=== PATIENT | male | born 1935 | race Caucasian/White ===

== ENCOUNTER 2019-06-21 07:49 | Outpatient (CLI) | payer MEDICARE, BC, SELFPAY ==
--- NOTE | 2019-06-21 08:01 | CT_ITS ---
WS: [id number] CT NECK WITHOUT CONTRAST. HISTORY: RESTAGING EVALUATION/SQUAMOUS CELL CARCINOMA OF SCALP NECK TECHNIQUE: Contiguous 5 mm axial images are performed through the neck without intravenous contrast. Sagittal and coronal reformats are also submitted. All CT scans at [facility] use at leas t one of these dose optimization techniques: automated exposure control; mA and/or kV adjustment per patient size (includes targeted exams where dose is matched to clinical indication); or iterative rec onstruction. CONTRAST: CONTRAST: None, abnormal GFR and creatinine. DLP: 539.71 mGy.cm COMPARISON: 11/29/2018 Nasopharynx, oropharynx, hypopharynx and larynx are unremarkable. No soft tissue masses or abnormal e nhancement. Torus tubarius and fossa of Rosenmuller and parapharyngeal fat are normal. No significant lymphadenopathy is identified. Thyroid gland and salivary glands are normally enhancing with no masses. Previously described 3 mm no dule in the LEFT thyroid gland is not identified today. Moderate spondylitic changes in the cervical spine. C3 anterolisthesis by 4 mm. Advanced degenerative disc disease at T1-T2. No osteoblastic or osteolytic bone disease. Visualized portions of the skull base demonstrate no abnormalities. Orbits and globes are within norm al limits. No soft tissue masses. Moderate atherosclerosis in the intracranial carotid arteries. Visualized paranasal sinuses and mastoid air cells are normal. Emphysematous changes at the lung apices. Increased mediastinal fat. Cardiac silhouette is enlarged. Benign scattered calcifications in the hilum and mediastinum. CT/CT neck wo con [id number] IMPRESSION: 1. No metastatic disease within the neck. 2. No cervical adenopathy. 3. Advanced cervical spondylosis.
--- NOTE | 2019-06-21 08:01 | CT_ITS ---
WS: [id number] CT HEAD NONCONTRAST HISTORY: RESTAGING/SQUAMOUS CELL CARCINOMA OF SCALP and NECK TECHNIQUE: Contiguous axial imaging performed through the brain in 2.5 mm imaging. Bone and soft tiss ue windows. Sagittal and coronal reformats reviewed. All CT scans at [facility] use at le ast one of these dose optimization techniques: automated exposure control; mA and/or kV adjustment pe r patient size (includes targeted exams where dose is matched to clinical indication); or iterative r econstruction. DLP: 898.16 mGy.cm COMPARISON: 11/29/2018 No acute intracranial hemorrhage, midline shift or mass effect. Mild atrophy and mild chronic ischemic disease. No dural mass is or suspicious areas of decreased att enuation. Ventricles: Normal size with no hydrocephalus. No inferior displacement of the cerebellar tonsils. Paranasal sinuses: As visualized are clear. Mastoid air cells: Well pneumatized. Calvarium and scalp: Again noted is a large defect involving the LEFT frontal calvarium with adjacent change in the bone density. This area measures 6.1 x 5.3 cm. The inner table is still intact but irr egular. Similar to the prior study. No extension of soft tissue into the dura. CT/CT head wo con* [id number] IMPRESSION: 1. No intracranial mass or tumor extension through the calvarium. 2. No change in the LEFT frontal calvarium excision and/or osteolysis. No prog ression of the abnormal density involving the LEFT frontal bone.
[2019-06-21 09:06] LABS: Blood Urea Nitrogen 46 mg/dL (8-23)
== END 2019-06-21 07:50 | disposition home or self-care (01) ==
LOC: RAD 07:55
PROVIDERS: Family Provider Family Medicine; PCP Family Medicine; Visit Provider Radiology Radiation Oncology
DX: C44.42 Squamous cell carcinoma of skin of scalp and neck (principal); M47.812 Spondylosis without myelopathy or radiculopathy, cervical region
CPT/HCPCS: 36415; 70450; 70490; 82565; 84520

== ENCOUNTER 2019-06-22 09:58 | Outpatient (CLI) | payer MEDICARE, BC, SELFPAY ==
--- NOTE | 2019-06-23 13:22 | ONCRAD EPV_ITS ---
Radiation Oncology Established Patient Visit Patient: Chu MR#: [id number] : 1935> Age: 83> Sex: Male> Dictated by: Dr. Al Min Date of Service: 06/22/2019 Referring Physician(s) : Dean Sam Diagnosis: C44.42 - Squamous cell carcinoma of skin of scalp and neck, Diagnosed 09/17/2016 (Active) Radiotherapy to Date: Course: C1 Treatment Site: Frontal Scalp Ref. ID: SCALP Energy: 9E Dose/Fx (cGy): 275 #Fx: 20 / 20 Dose Correction (cGy): 0 Total Dose (cGy): 5,500 Start Date: 09/23/2016 End Date: 10/23/2016 Elapsed Days: 30 Course: C1 Treatment Site: LT EAR 55GY Ref. ID: LT EAR Energy: 9E Dose/Fx (cGy): 275 #Fx: 20 / 20 Dose Correction (cGy): 0 Total Dose (cGy): 5,500 Start Date: 09/23/2016 End Date: 10/23/2016 Elapsed Days: 30 Course: C1 Treatment Site: R Face Parotid Lymph Node 5500/20 Ref. ID: RT PAROTID Energy: 9E Dose/Fx (cGy): 275 #Fx: 20 / 20 Dose Correction (cGy): 0 Total Dose (cGy): 5,500 Start Date: 09/23/2016 End Date: 10/23/2016 Elapsed Days: 30 Chief Complaint / History of Present Illness: The patient has a h/o skin SCC involving scalp s/p wide local excision followed by definitive radiotherapy for locoregional recurrence completed in 10/2016. He had a surgery to close the defect on scalp. He comes in for a followup. He underwent a CT of the head and the neck w/o contrast on 06/21/2019. It showed no intracranial mass or tumor extension through the calvarium. There is no evidence of metastatic disease in the neck and no cervical lymphadenopathy. The patient states that the he recently had a biopsy proven squamous cell carcinoma of the scalp with a small lesion and he is scheduled to have surgical resection Mohs surgery next month in July 2019. Current Medications: AmLODIPine Besylate, aspirin Low Dose, cholecalciferol, gemfibrozil, glimepiride, levemir, losartan Potassium, metoprolol Succinate ER, omeprazole Magnesium, predniSONE, tamsulosin HCl, vitamin A. Allergies: No Known Allergies Current Complaints / Review of Systems: Constitutional - Complains of mild fatigue. Denies lack of appetite, fever, night sweats and change in weight. Eyes - Denies blurred vision and double vision. ENMT - Denies dysphagia, ear pain, mouth dryness, stomatitis, altered taste and tinnitus. Neck - Denies neck pain. Integumentary - Denies rash. Cardiovascular - Complains of edema feet. Denies arrhythmias and chest pain. Respiratory - Complains of dyspnea associated with normal activity. Denies cough and wheezing. Gastrointestinal - Denies abdominal pain, constipation, diarrhea, heartburn / dyspepsia, melena / GI bleeding, nausea and vomiting. Genitourinary (M) - Denies dysuria, frequency and urgency. Musculoskeletal - Denies bone pain, joint pain and muscle weakness. Neurologic - Denies dizziness and headaches. Endocrine - Complains of Type 2 diabetes. Denies thyroid disease. Hematologic/Lymphatic - Denies tender or enlarged lymph nodes.. Vital Signs: Performed on 06/22/2019 10:57 AM BMI - 29.21 kg/m2 (high), Height - 69.00 in, Weight - 197.8 lbs, Temperature - 98.1 f, Pulse - 75, Respiration - 24, O2 Sat - 96 %, Pain - 0 and BP - 151/ 81 mm(hg)(high/). Physical Exam: General: Alert and oriented x 3. No acute distress. HEENT: Normocephalic, atraumatic. Small scalp lesion s/p biopsy. Oral cavity is clear without lesions, masses or ulcers. NECK: Supple without supraclavicular or jugular lymphadenopathy. LUNGS: Clear to auscultation bilaterally without rales, rhonchi or wheeze. HEART: Regular rate and rhythm, normal S1 and S2 without murmur, gallop or rub. MUSCULOSKELETAL: No tenderness or percussion pain over the axial skeleton, scapulae or pelvis. ABDOMEN: Soft, nontender, nondistended without masses or organomegaly. Bowel sounds are present. EXTREMITIES: No peripheral edema is identified. Limited motor and sensory examination are grossly intact and symmetric bilaterally. NEUROLOGIC: Cranial nerves II ???XII are grossly intact. Normal sensation, strength 5/5 in all extremities, normal gait, no ataxia. Performance Status: 1 - No physically strenuous activity, but ambulatory and able to carry out light or sedentary work (e.g. office work, light house work). (ECOG) Lab: None pending. Pathology: squamous cell carcinoma of skin of scalp Imaging: See HPI Impression: The patient has developed a new lesion of squamous cell carcinoma of the scalp for which he has been scheduled for Mohs surgery by his vp software support in [place]. There is no clinical evidence of metastatic disease or lymphadenopathy in the neck. Plan: I encouraged the patient to follow up with his [employer] software support for the above procedure and cancer surveillance. I will order a CT of neck in 6 months and he will follow up with me afterwards. Signed by: 06/23/2019 1:21:10 PM <<Signature on File>> CPT Code: CPT Code: Signed By: Dr. Al Min, 06/23/2019 1:21:11 PM <<Signature on File>>
== END 2019-06-22 09:59 | disposition home or self-care (01) ==
LOC: ONCMED 09:58
PROVIDERS: Family Provider Family Medicine; PCP Family Medicine; Visit Provider Radiology Radiation Oncology
DX: C44.42 Squamous cell carcinoma of skin of scalp and neck (principal); E11.9 Type 2 diabetes mellitus without complications; Z92.3 Personal history of irradiation; Z79.82 Long term (current) use of aspirin; Z79.52 Long term (current) use of systemic steroids; Z79.84 Long term (current) use of oral hypoglycemic drugs
CPT/HCPCS: 99213

== ENCOUNTER 2019-07-18 15:48 | Outpatient (CLI) | payer MEDICARE, BC, SELFPAY ==
--- NOTE | 2019-07-18 15:57 | XR_ITS ---
WS: [id number] SCREENING DEXA SCAN [facility] CLINICAL INFORMATION: OSTEOPENIA, STEROID DEPENDENCY COMPARISON: None. FINDINGS: The L1-L4 bone mineral density measures 1.351 g/cm2. This corresponds to a T score score of 1.1 and Z score of 1.6. Left femoral neck bone mineral density measures 0.991 g/cm2. This corresponds to a T score of -0.8 an d Z score of 0.3. Right femoral neck bone mineral density measures 0.905 g/cm2. This corresponds to a T score -1.4of an d Z score of -0.3. Mean femoral neck bone mineral density measures 0.948 g/cm2. This corresponds to a T score of -1.1 an d Z score of 0.0. XR/XR DEXA axial skeleton* [id number] IMPRESSION: Normal bone mineralization in the lumbar spine and osteopenia in the femoral ne cks. Patient's FRAX calculated 10 year probability for major osteoporotic fracture i s 12.0 % and osteoporotic hip fracture is 5.3%.
== END 2019-07-18 15:49 | disposition home or self-care (01) ==
LOC: RADWPI 15:53
PROVIDERS: Family Provider Family Medicine; PCP Family Medicine; Visit Provider Family Medicine
DX: M85.80 Other specified disorders of bone density and structure, unspecified site (principal); Z79.52 Long term (current) use of systemic steroids
CPT/HCPCS: 77080

== ENCOUNTER 2019-10-03 15:17 | Outpatient (CLI) | payer MEDICARE, BC, SELFPAY ==
--- NOTE | 2019-10-03 15:31 | XR_ITS ---
WS: [id number] ELBOW RIGHT TECHNIQUE: 3 views of the right elbow CLINICAL INFORMATION: ELBOW PAIN, RIGHT COMPARISON: None. FINDINGS: Soft tissue edema. Olecranon spurring and enthesophyte's with soft tissue edema overlying the olecran on. Recommend correlation for olecranon bursitis. Small joint effusion. Distal humerus is normal in a ppearance. Normal radial head. No evidence of acute fracture dislocation. XR/XR elbow RT min 3V* [id number] IMPRESSION: Soft tissue edema dorsal elbow with olecranon spurring and enthesophyte. Recomm end correlation for olecranon bursitis.
== END 2019-10-03 15:18 | disposition home or self-care (01) ==
LOC: RADWPI 15:22
PROVIDERS: Family Provider Family Medicine; PCP Family Medicine; Visit Provider Family Medicine
DX: M25.521 Pain in right elbow (principal); M70.21 Olecranon bursitis, right elbow
CPT/HCPCS: 73080

== ENCOUNTER 2019-10-23 09:21 | Inpatient (IN) | payer MEDICARE, BC, SELFPAY ==
[2019-10-23] VITALS (42 sets, daily range): BP systolic 84–122; BP diastolic 40–73; PULSE 63–96; RESP 15–31; TEMP 36.6–36.7; O2SAT 87–99; BMI 28.0
[2019-10-23] MEDS: sodium chloride 0.9% 500 ML 999 ML IV (09:30)
--- NOTE | 2019-10-23 09:43 | ECG_ITS ---
Measurements Intervals [place] Rate: 85 P: 47 [place]: 138 QRS: -51 QRSD: 134 T: -10 QT: 383 QTc: 456 SINUS RHYTHM RIGHT BUNDLE BRANCH BLOCK [120+ ms QRS DURATION, UPRIGHT V1, 40+ ms S IN I I/aVL/V4/V5/V6] LEFT ANTERIOR FASCICULAR BLOCK [QRS AXIS <= -45, QR IN I, RS IN II] No previous ECG available for comparison Electronically Signed On 10-23-2019 20:30:40 CDT by Rena Billings M.D. [email or web address]
--- NOTE | 2019-10-23 09:43 | XR_ITS ---
WS: [id number] XR chest 1V portable [id number] REASON FOR EXAM: chest FINDINGS: Cardiomegaly is noted. The lung williamson are well aerated. No pneumonia, pulmonary edema, pleural effusion, mass effect, are p neumothorax. The hilum and apices are normal. No osseous abnormalities. XR/XR chest 1V portable [id number] IMPRESSION: Gross cardiomegaly.
--- NOTE | 2019-10-23 09:46 | ED_ITS ---
HPI - Chest Pain General: Chief Complaint: Chest Pain Stated Complaint: CP Time Seen by Provider: 10/23/19 09:33 History of Present Illness: HPI narrative: 84 yo male with complaints of chest pain. Patient reports having chest pain last night began at midnight radiating to the shoulders. He initially told me had a similar episode 10 days ago later his daughter corrected him and states it was actually about 4 to 5 days ago after he had been mowing the lawn he had chest discomfort both of the previous episode resolved spontaneously still having some discomfort this morning. He denies any nausea or diaphoresis associated with this or any dyspnea. He is not previously had any kind of cardiac evaluation that he can recall. This all began at midnight while he was at rest and is gone on throughout the night. He is still having some pain now he states it is intermittent and will be anywhere from a 2-4 seems to come wax and wane spontaneously. He is not had any GI or symptoms no respiratory symptoms no recent upper respiratory illness. MD complaint: chest pain Associated symptoms: Deny abdominal pain, dyspnea, fever(s), nausea or vomiting Review of Systems Const: Denies: fever(s), chills, body aches, change in appetite, fatigue or malaise ENMT: Denies: throat pain, ear or mastoid pain, nasal discharge or nasal congestion Card: Reports: chest pain; Denies: edema, dyspnea on exertion or orthopnea Resp: Denies: dyspnea, productive cough or non-productive cough GI: Denies: abdominal pain, nausea, vomiting, hematemesis, coffee ground emesis, diarrhea, constipation, bloating, hematochezia or melena : Denies: flank pain, dysuria, urinary frequency or urinary urgency Skin/Breast: Denies: rash or pruritus [facility] ED PFSH: Medical History (Updated 10/23/19 @ 12:45 by Tyrone Velasco DO) Diabetes Social History Smoking and tobacco status: former smoker Physical Exam Const: COMMON NORMALS: no acute distress GENERAL APPEARANCE: cooperative and comfortable ORIENTATION/CONSCIOUSNESS: Yes awake, Yes oriented to person, Yes oriented to place and Yes oriented to time HENMT: COMMON NORMALS: normocephalic, atraumatic, hearing grossly normal bilaterally, external ears normal, EAC's normal, TM's normal bilaterally, Normal nasal mucous membranes and turbinates present, moist oral mucous membranes and oropharynx normal HEAD & SCALP: normocephalic and atraumatic NOSE: Normal nasal mucous membranes and turbinates present EXTERNAL EAR: Yes external ears normal EXTERNAL AUDITORY CANAL: EAC's normal TYMPANIC MEMBRANE: TM's normal bilaterally OTHER: Scarring deformity of the scalp from previous resection of squamous cell CA Eye: COMMON NORMALS: Equal, round and reactive pupils present, EOMs intact bilaterally, conjunctivae normal and no scleral icterus CONJUNCTIVA: Yes conjunctivae normal PUPIL: Yes Equal, round and reactive pupils present Neck/C-Spine: COMMON NORMALS: full ROM, no lymphadenopathy, supple and no JVD Lymph: LYMPHATIC: no lymphadenopathy noted and no lymphedema noted Resp: COMMON NORMALS: normal respiratory effort, No retractions, No use of accessory muscles and clear to auscultation bilaterally AUSCULTATION: clear to auscultation bilaterally Cardio: COMMON NORMALS: no JVD, regular rate, regular rhythm and No murmurs present (Cardio) RATE: regular rate RHYTHM: regular rhythm GI: COMMON NORMALS: Soft to palpation and No hepatosplenomegaly present AUSCULTATION: Yes normoactive bowel sounds PALPATION: Yes Soft to palpation, No Tenderness to palpation present (GI), No Guarding due to palpation present (GI) and Yes No hepatosplenomegaly present Extremity: COMMON NORMALS: normal to inspection, capillary refill normal, no clubbing, cyanosis or edema, no calf tenderness and no pedal edema Neuro: SENSORIUM/ORIENTATION: Yes oriented to person, Yes oriented to place and Yes oriented to time Skin: COMMON NORMALS: no rashes or lesions noted GENERAL SKIN EXAM: no rashes or lesions noted Course Vital Signs: Vital signs: Vital Signs Temperature 97.9 F 10/23/19 09:32 Pulse Rate 83 10/23/19 12:19 Respiratory Rate 16 10/23/19 12:19 Blood Pressure 114/71 10/23/19 12:19 Pulse Oximetry 97 10/23/19 12:19 MDM - Chest Pain MDM Narrative: Medical decision making narrative: Patient continues to have waxing and waning chest pain did improve while in the ER before he was sent to the floor. He was given aspirin started on heparin and nitro drip discussed Dr. Hargrove and with Dr. Cortez who will consult. His first troponin is over 500. Lab Data: Attestation: I reviewed the patient's lab results. Labs: Lab Results 10/23/19 10/23/19 10/23/19 Range/Units 09:57 09:57 09:57 WBC 12.7 H (4.0-10.0) 10^3/ uL RBC 4.12 (4.1-5.3) 10^6/u L Hgb 12.0 (11.7-16.6) g/dL Hct 38.9 L (42.0-52.0) % MCV 94.4 H (80-94) fL MCH 29.1 (28.0-34.0) pg MCHC 30.8 (30.0-36.0) g/dL RDW 15.1 (12.1-15.1) % Plt Count 262 (130-400) 10^3/c mm MPV 11.8 H (7.4-10.4) fL Neut % (Auto) 87.1 % Lymph % (Auto) 3.5 % [place] % (Auto) 7.7 % Eos % (Auto) 0.6 % Baso % (Auto) 0.4 % Neut # (Auto) 11.0 H (1.8-7.7) 10^3/u L Lymph # (Auto) 0.5 L (0.8-4.8) 10^3/u L [place] # (Auto) 1.0 H (0.2-0.9) 10^3/u L Eos # (Auto) 0.1 (0.0-0.8) 10^3/u L Baso # (Auto) 0.1 (0.0-0.1) 10^3/u L Nucleated RBC % (a uto) 0 % Nucleated RBCs # 0.0 /100WBC PT 15.20 H (10.5-13.3) SECO NDS INR 1.16 (0.8-1.2) APTT 30.2 (23.9-36.7) SECO NDS Sodium 138 (136-145) mmol/L Potassium 4.7 (3.5-5.1) mmol/L Chloride 104 (98-107) mmol/L Carbon Dioxide 19 L (22-29) mmol/L Anion Gap 19.7 H (5-19) BUN 35 H (8-23) mg/dL Creatinine 2.1 H (0.7-1.2) mg/dL Glucose 145 H (65-115) mg/dL Calculated Osmolal ity 286 (285-295) mOsm/k g Calcium 9.7 (8.5-10.5) mg/dL Total Bilirubin 0.5 (0.15-1.2) mg/dL AST 23 (0-40) U/L ALT 17 (0-41) U/L Alkaline Phosphata se 76 (40-130) IU/L Creatine Kinase 111 (39-308) U/L Troponin T Baselin e (0-15) ng/L Total Protein 6.9 (6.6-8.7) g/dL Albumin 3.5 (3.5-5.2) g/dL Globulin 3.4 (1.3-4.6) g/dL 10/23/19 Range/Units 09:57 WBC (4.0-10.0) 10^3/ uL RBC (4.1-5.3) 10^6/u L Hgb (11.7-16.6) g/dL Hct (42.0-52.0) % MCV (80-94) fL MCH (28.0-34.0) pg MCHC (30.0-36.0) g/dL RDW (12.1-15.1) % Plt Count (130-400) 10^3/c mm MPV (7.4-10.4) fL Neut % (Auto) % Lymph % (Auto) % [place] % (Auto) % Eos % (Auto) % Baso % (Auto) % Neut # (Auto) (1.8-7.7) 10^3/u L Lymph # (Auto) (0.8-4.8) 10^3/u L [place] # (Auto) (0.2-0.9) 10^3/u L Eos # (Auto) (0.0-0.8) 10^3/u L Baso # (Auto) (0.0-0.1) 10^3/u L Nucleated RBC % (a uto) % Nucleated RBCs # /100WBC PT (10.5-13.3) SECO NDS INR (0.8-1.2) APTT (23.9-36.7) SECO NDS Sodium (136-145) mmol/L Potassium (3.5-5.1) mmol/L Chloride (98-107) mmol/L Carbon Dioxide (22-29) mmol/L Anion Gap (5-19) BUN (8-23) mg/dL Creatinine (0.7-1.2) mg/dL Glucose (65-115) mg/dL Calculated Osmolal ity (285-295) mOsm/k g Calcium (8.5-10.5) mg/dL Total Bilirubin (0.15-1.2) mg/dL AST (0-40) U/L ALT (0-41) U/L Alkaline Phosphata se (40-130) IU/L Creatine Kinase (39-308) U/L Troponin T Baselin e 506 H* (0-15) ng/L Total Protein (6.6-8.7) g/dL Albumin (3.5-5.2) g/dL Globulin (1.3-4.6) g/dL Discharge Plan Discharge Patient Disposition: Admitted As Inpatient Admit Provider: Michelle Hargrove Clinical Impression: Non-ST elevation [place] (NSTEMI), Diabetes, Unstable angina pectoris Condition: Stable Interventions: ED Discharge Assessment Last Done: 10/23/19 12:19 ED Charges Last Done: 10/23/19 12:19 Discharge Date/Time: 10/23/19 12:21 Coding Level of Care Code ED Pattern Hand for Margarita Crespo
[2019-10-23 10:04] LABS: Basophils # 0.1 10^3/uL (0.0-0.1); Basophils % 0.4 %; Eosinophils # 0.1 10^3/uL (0.0-0.8); Eosinophils % 0.6 %; Hematocrit 38.9 % (42.0-52.0); Lymphocytes # 0.5 10^3/uL (0.8-4.8); Lymphocytes % 3.5 %; Mean Corpuscular HGB Conc 30.8 g/dL (30.0-36.0); Mean Corpuscular Hemoglobin 29.1 pg (28.0-34.0); Mean Corpuscular Volume 94.4 fL (80-94); Mean Platelet Volume 11.8 fL (7.4-10.4); Monocytes % 7.7 %; Neutrophils % 87.1 %; Nucleated Red Blood Cells % 0 %; Platelet Count 262 10^3/cmm (130-400); Red Blood Count 4.12 10^6/uL (4.1-5.3); Red Cell Distribution Width 15.1 % (12.1-15.1); White Blood Count 12.7 10^3/uL (4.0-10.0)
[2019-10-23 10:16] LABS: INR 1.16 (0.8-1.2); Partial Thromboplastin Time 30.2 SECONDS (23.9-36.7)
[2019-10-23 10:19] LABS: Alanine Aminotransferase 17 U/L (0-41); Albumin Level 3.5 g/dL (3.5-5.2); Alkaline Phosphatase 76 IU/L (40-130); Anion Gap 19.7 (5-19); Aspartate Amino Transferase 23 U/L (0-40); Blood Urea Nitrogen 35 mg/dL (8-23); Calcium 9.7 mg/dL (8.5-10.5); Carbon Dioxide 19 mmol/L (22-29); Chloride 104 mmol/L (98-107); Creatine Phosphokinase 111 U/L (39-308); Globulin 3.4 g/dL (1.3-4.6); Glucose 145 mg/dL (65-115); Osmolality Calculated 286 mOsm/kg (285-295); Potassium 4.7 mmol/L (3.5-5.1); Sodium 138 mmol/L (136-145); Total Bilirubin 0.5 mg/dL (0.15-1.2); Total Protein 6.9 g/dL (6.6-8.7)
[2019-10-23 10:27] LABS: Troponin(5th) Baseline 506 ng/L (0-15)
[2019-10-23] MEDS: aspirin 81 mg Chew Tablet 324 MG PO (11:27)
--- NOTE | 2019-10-23 11:43 | ECG_ITS ---
Measurements Intervals [place] Rate: 79 P: 92 PA: 142 QRS: -49 QRSD: 128 T: -10 QT: 394 QTc: 452 SINUS RHYTHM RIGHT BUNDLE BRANCH BLOCK [120+ ms QRS DURATION, UPRIGHT V1, 40+ ms S IN I/aVL/V4/V5/V6] LEFT ANTERIOR FASCICULAR BLOCK [QRS AXIS <= -45, QR IN I, RS IN II] No previous ECG available for comparison Electronically Signed On 10-23-2019 20:36:54 CDT by Rena Billings M.D. [email or web address]
[2019-10-23] MEDS: heparin 5,000 unit/mL INJ 1 mL 4000 UNIT IVP (12:03)
[2019-10-23] MEDS: heparin 5,000 unit/mL INJ 1 mL IV (12:03)
[2019-10-23] MEDS: heparin drip 25,000 UNIT/500 ML PREMIX 29.3 UNIT IV (12:05)
[2019-10-23] MEDS: nitroglycerin drip 50 MG/250 ML PREMIX IV (12:06)
[2019-10-23 13:11] LABS: Troponin 5 2HR 445.6 ng/L (0-15)
[2019-10-23] MEDS: sodium chloride 0.9% 1,000 ML 100 ML IV (13:27)
--- NOTE | 2019-10-23 13:31 | P.HP_ITS ---
Providers/Chief Complaint Admitting Physician: Michelle Hargrove DO Primary Care Provider: Jorge Alberto Mitchell DO Chief Complaint: CP History of Present Illness Eddie Mendoza is a 84 year old male with a past medical history of diabetes, hypertension, hyperlipidemia, giant cell arteritis, chronic kidney disease and chronic steroid dependence that presented to the emergency department today for chest pain. He stated that he was having episodes of chest pain last week, Wednesday, that radiated to his left shoulder he reported that the pain onset while at rest. He stated that this morning he began having pain in the center of his chest that radiated to both shoulders and felt as a tightness and heaviness in the center of his chest. He stated that he did have shortness of breath at the time. He stated that he has been having decreased energy and significant shortness of breath with exertion over the past few weeks. Patient did report that he was taken off of his aspirin 2 weeks ago due to concern for significant bruising in his elbow. He denies any recent illness, no fevers or chills, no increasing cough or sputum production. No exposure to anyone with CO VID-19. Patient reports decrease in energy and with onset of chest pain this morning reported significant shaking in his upper extremities. Patient denies any history of heart disease but does report a history of hypertension. He stated that he is on prednisone 15 mg daily, had recently cut down from 20 mg d ail. He reports that he has been on steroids for 5 to 6 years. 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 Patient was seen and evaluated in the emergency department due to concern for non-ST elevation DC he was admitted for further evaluation and treatment. C ardiology was consulted while patient was in the ED. He was started on a heparin drip and started on a nitroglycerin drip due to continued chest pain. At time of my exam patient reports that he is not currently having any chest discomfort. Review of Systems Const: Denies: fever(s) or chills Eyes: Denies: change in vision ENMT: Denies: nasal congestion Card: Reports: chest pain; Denies: palpitations or edema Resp: Reports: dyspnea; Denies: productive cough or hemoptysis GI: Denies: abdominal pain, nausea, vomiting, diarrhea, constipation, hematochezia or melena : Denies: dysuria or hematuria Musc: Denies: extremity pain or muscle cramps Skin/Breast: Denies: rash or new lesions Neuro: Denies: headache(s) or dizziness Psych: Denies: anxiety or depression Endo: Denies: polyuria or hot flashes Pollo/Lymph: Reports: easy bruising; Denies: easy bleeding Medications/Allergies Home Medications Medication Instructions Recorded Confirmed Last Taken Type amlodipine 10 mg PO DAILY 10/23/19 10/23/19 10/23/19 History aspirin [Aspir-81] 81 mg PO DAILY 10/23/19 10/23/19 Unknown History gemfibrozil 600 mg PO BID 10/23/19 10/23/19 10/22/19 History glipizide 5 mg PO BID 10/23/19 10/23/19 Unknown History insulin detemir U-100 [Levemir 25 unit SUBCUT BID 10/23/19 10/23/19 10/22/19 History FlexTouch U-100 Insuln] losartan 100 mg PO DAILY 10/23/19 10/23/19 10/22/19 History metoprolol succinate 50 mg PO DAILY 10/23/19 10/23/19 Unknown History omeprazole 20 mg PO DAILY 10/23/19 10/23/19 10/23/19 History prednisone 10 - 20 mg PO DAILY 10/23/19 10/23/19 10/23/19 History 10 mg tamsulosin 0.4 mg PO BEDTIME 10/23/19 10/23/19 10/22/19 History vitamin A 1 cap PO DAILY 10/23/19 10/23/19 Unknown History vitamin E 1 cap PO DAILY 10/23/19 10/23/19 Unknown History Allergies Allergy/AdvReac Type Severity Reaction Status Date / Time No Known Allergies Allergy Verified 10/23/19 09:37 PFSH Acute PFSH: Medical History Chronic kidney disease Stage III Chronic use of steroids Diabetes mellitus type 2, 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 History of squamous cell carcinoma Hyperlipidemia Hypertension Surgical History History of cholecystectomy History of Mohs surgery for squamous cell carcinoma of skin Squamous cell carcinoma of the scalp Family History (Updated 06/15/20 @ 13:44 by Michelle Hargrove DO) Mother Cancer CAD (coronary artery disease) Father Hypertension Social History (Updated 10/23/19 @ 13:44 by Michelle Hargrove DO) Smoking and tobacco status: former smoker Alcohol intake: never Substance/Drug Use: never Supplemental PFSH Information: and lives at home with his . Primary caregiver for his who is at home with dementia Vitals/I&O/Wt Last Vital Signs Temp 97.9 F 10/23/19 09:32 Pulse 83 10/23/19 12:19 Resp 16 10/23/19 12:19 BP 114/71 10/23/19 12:19 Pulse Ox 97 10/23/19 12:19 Weight last 48 hrs Weight 86.183 kg Physical Exam Const: COMMON NORMALS: patient oriented x3 and alert GENERAL APPEARANCE: cooperative ORIENTATION/CONSCIOUSNESS: Yes awake, Yes oriented to person, Yes oriented to place and Yes oriented to time HENMT: COMMON NORMALS: normocephalic HEAD & SCALP: normocephalic OTHER: Postsurgical changes to the patient's scalp with no surrounding erythema or drainage Eye: COMMON NORMALS: Equal, round and reactive pupils present PUPIL: Yes Equal, round and reactive pupils present Neck/C-Spine: COMMON NORMALS: supple GENERAL: Yes normal visual inspection Resp: COMMON NORMALS: normal respiratory effort and clear to auscultation bilaterally EFFORT & INSPECTION: Yes able to speak in complete sentences AUSCULTATION: clear to auscultation bilaterally, no rhonchi and no wheezes Cardio: COMMON NORMALS: regular rate, regular rhythm and No murmurs present (Cardio) RATE: regular rate RHYTHM: regular rhythm GI: COMMON NORMALS: Soft to palpation and non-tender INSPECTION: No abdominal distension AUSCULTATION: Yes normoactive bowel sounds PALPATION: Yes Soft to palpation OTHER: Obese, soft, nontender : COMMON NORMALS: Yes no CVA tenderness BLADDER/KIDNEY EXAM: Yes no CVA tenderness Back/Pelvis: COMMON NORMALS: no CVA tenderness Extremity: COMMON NORMALS: no clubbing, cyanosis or edema and no calf tenderness Neuro: COMMON NORMALS: patient oriented x3, CN's II-XII intact bilaterally, moves all extremities and no focal motor deficits SENSORIUM/ORIENTATION: Yes alert, Yes oriented to person, Yes oriented to place and Yes oriented to time SPEECH: speech normal Psych: COMMON NORMALS: mental status grossly normal and cooperative Skin: COMMON NORMALS: no rashes or lesions noted GENERAL SKIN EXAM: no rashes or lesions noted Data : 10/23/19 09:57 10/23/19 09:57 A&P Assessment and plan (1) Non-ST elevation DC (NSTEMI): Patient with elevated troponin in the emergency department and angina, most recent episode this morning with prior episode last Wednesday. Started on heparin drip and nitroglycerin drip in the ED. At time of my exam patient is chest pain-free Cardiology consulted, appreciate recommendations and assistance in patient's care Patient denies any history of coronary artery disease however does have risk factors including diabetes, hypertension, hyperlipidemia, prior history of tobacco use Patient does have a history of chronic kidney disease, therefore will continue to monitor renal function closely Status: Acute (2) Hypertension: Hold amlodipine due to soft BP with nitro drip Continue home beta anamika Status: Acute (3) Hyperlipidemia: Start on Atorvastatin 40mg daily Lipid panel ordered Status: Acute (4) Diabetes mellitus type 2, insulin dependent: Moderate dose sliding scale insulin as needed Levemir decreased from 30Units BID to 20U BID due to patient potentially going for cardiac cath in the morning with NPO diet at midnight Status: Acute (5) Chronic use of steroids: Currently on prednisone 15mg daily, reports not feeling well since decrease in dose. Will increase to previous baseline of 20mg daily Status: Acute (6) Chronic kidney disease: Followed by Dr. Renner Patient aware of potential risks with cardiac cath if needed. Appears to be at baseline. Gentle IV hydration due to anticipation of cardiac cath Status: Acute Additional A&P Information History of squamous cell carcinoma to the scalp status post resection by a Mohs surgery in July History of giant cell arteritis Leukocytosis: No infectious etiology present at this time, likely secondary to chronic steroids and stress reaction action Patient does appear to have cardiomegaly, however chest x-ray is not the best to interpret this will further evaluate with echocardiogram DVT prophylaxis: Previously placed on heparin drip, will continue Diet: Cardiac, carbohydrate consistent, n.p.o. at midnight CODE STATUS: Full code, this was discussed with the patient and his daughter Attestations Medical Necessity Statement*: Admission for NSTEMI, expected stay greater than 2 midnights Coding Level of Care Code Acute Hand Tube Winder for Chg Fwd Exam Comprehensive Diagnoses Non-ST elevation DC (NSTEMI) I21.4 Hypertension I10 Hyperlipidemia E78.5 Diabetes mellitus type 2, insulin dependent E11.9; Z79.4 Chronic use of steroids Chronic kidney disease N18.9
--- NOTE | 2019-10-23 14:02 | USCV_ITS ---
Eddie Mendoza Age: 84 Gender: M : 1935 Exam Date: 10/23/2019 14:42 Ordering Phys: Michelle Hargrove DO Technologist: Tammy Phan Exam Location: [facility] – [place] Indication: CARDIOMYOPATHY BP: 115 / 61 HR: 80 Rhythm: Sinus Technical Quality: Adequate MEASUREMENTS (Male / Female) Normal Values 2D ECHO LV Diastolic Diameter PLAX 4.1 cm 4.2 - 5.9 / 3.9 - 5.3 cm LV Systolic Diameter PLAX 2.1 cm LV Chamber Size 4.0 cm IVS Diastolic Thickness 1.3 cm 0.6 - 1.0 / 0.6 - 0.9 cm IVS Systolic Thickness 1.5 cm LVPW Diastolic Thickness 1.8 cm 0.6 - 1.0 / 0.6 - 0.9 cm LVPW Systolic Thickness 2.3 cm RV Chamber Size 3.9 cm LVOT Diameter 2.1 cm LV Ejection Fraction 2D Teich 79.6 % LV Ejection Fraction MOD 2C 80.3 % LV Ejection Fraction 2C AL 82.3 % LA Diameter 4.8 cm LA Width 2.9 cm LA Height 4.2 cm RA Width 3.1 cm RA Height 3.3 cm Aorta at Sinotubular Diameter 2.9 cm M-MODE LV Diastolic Diameter MM 7.1 cm 4.2 - 5.9 / 3.9 - 5.3 cm LV Systolic Diameter MM 6.1 cm LV Ejection Fraction MM Teich 30.2 % IVS Diastolic Thickness MM 0.9 cm 0.6 - 1.0 / 0.6 - 0.9 cm IVS Systolic Thickness MM 1.5 cm LVPW Diastolic Thickness MM 0.9 cm 0.6 - 1.0 / 0.6 - 0.9 cm LVPW Systolic Thickness MM 1.5 cm Aortic Annulus Diameter 3.0 cm LA Ao Ratio MM 1.6 MV E Point Septal Separation 0.7 cm DOPPLER AV Peak Velocity 217.0 cm/s LVOT Peak Velocity 134.0 cm/s AV Area Cont Eq vti 2.0 cm squared AV Area Cont Eq pk 2.1 cm squared MV Area PHT 3.6 cm squared Mitral E to A Ratio 0.9 MV E' Velocity 8.0 cm/s Mitral E to MV E' Ratio 9.8 Mitral E to LV E' Lateral Ratio 11.6 Mitral E to LV E' Septal Ratio 8.5 TR Peak Velocity 176.0 cm/s TR Peak Gradient 12.4 mmHg TV Peak E Velocity 63.0 cm/s Right Atrial Pressure 3.0 mmHg Pulmonary Artery Systolic Pressu 15.4 mmHg PV Peak Velocity 63.0 cm/s RV Acceleration Time 0.1 s RV Ejection Time 0.3 s RV AcT/ET 0.3 FINDINGS Left Ventricle Normal left ventricular cavity size. Normal left ventricular systolic function. Left ventricular ejection fraction is estimated at 70 %. No regional wall motion abnormalities. Normal diastolic function. Right Ventricle Normal right ventricular size and systolic function. Right ventricular systolic pressure 15.4 mmHg. Right Atrium Normal right atrial size. Right atrial pressure estimated at 3 mmHg. Left Atrium Upper normal left atrial size. Mitral Valve Mildly thickened mitral valve. No mitral valve stenosis. Trace mitral valve regurgitation. Aortic Valve Aortic valve not well visualized. No aortic valve stenosis. No aortic valve regurgitation. Tricuspid Valve Structurally normal tricuspid valve. Pulmonic Valve Pulmonic valve not well visualized. Pericardium No pericardial effusion. Aorta Normal size aortic root and proximal ascending aorta. CONCLUSIONS 1. Normal left ventricular cavity size and systolic function. Left ventricular ejection fraction is estimated at 70 %. No regional wall motion abnormalities. Normal diastolic function. 2. Normal right ventricular size and systolic function. 3. Right atrial pressure estimated at 3 mmHg. 4. No significant valvular abnormality. 5. No prior similar studies to compare. Salima Mack MD (Electronically Signed) Final Date: 23 October 2019 19:20 S
[2019-10-23] MEDS: heparin drip 25,000 UNIT/500 ML PREMIX 24 UNIT IV (14:35)
[2019-10-23 15:10] LABS: NT Pro B Type Natriuretic Pept 1401 pg/mL (0-450); Phosphorus 3.5 mg/dL (2.5-4.5); Thyroid Stimulating Hormone 0.89 uIU/mL (0.27-4.20)
--- NOTE | 2019-10-23 15:43 | ECG_ITS ---
Measurements Intervals [place] Rate: 78 P: 40 FL: 146 QRS: -54 QRSD: 133 T: -9 QT: 390 QTc: 445 SINUS RHYTHM RIGHT BUNDLE BRANCH BLOCK [120+ ms QRS DURATION, UPRIGHT V1, 40+ ms S IN I/aVL/V4/V5/V6] LEFT ANTERIOR FASCICULAR BLOCK [QRS AXIS <= -45, QR IN I, RS IN II] No previous ECG available for comparison Electronically Signed On 10-23-2019 20:35:50 CDT by Rena Billings M.D. [email or web address]
--- NOTE | 2019-10-23 16:04 | P.CONIM_ITS ---
Providers/Reason For Consult Consulting Physican/Specialty*: Dr. Mack, cardiology Reason for Consult*: Non-ST elevation TN Attending Physician: Michelle Hargrove DO Primary Care Provider: Jorge Alberto Mitchell DO History of Present Illness History of Present Illness Eddie Mendoza is a 84 year old male with past medical history of hypertension, diabetes mellitus type 2, hyperlipidemia, history of giant cell arteritis on steroids and chronic kidney disease (stage 3b, baseline creatinine approximately 2 )he presented to the ER earlier today with complaints of chest discomfort. His first episode of chest discomfort was about a week back that was retrosternal with radiation to his left shoulder as well as to his back that lasted for about 7 hours. Pain described as aching sensation with shortness of breath. He had another episode that started this morning with radiation to both shoulders back as well as has his neck. He is not a great historian but states that for the past 2 weeks he has been having intermittent episodes of shortness of breath and chest pain described as achiness. Earlier this year he was found to have squamous cell carcinoma of scalp. On presentation to the ER he was found to have right bundle branch block on EKG and troponin T was elevated at 500. For his ongoing chest discomfort he was started on nitroglycerin and heparin drip. I have been asked to evaluate the patient and assist in further management. His primary care physician is Dr. Mitchell and he has not had any recent stress testing and does not have any known history of CAD. He is a former heavy smoker, quit smoking 20 years back. Review of Systems Const: Denies: fever(s) or chills ENMT: Denies: nasal congestion or epistaxis Card: Reports: chest pain and dyspnea on exertion; Denies: palpitations, irregular heart rhythm or orthopnea Resp: Reports: dyspnea; Denies: productive cough, non-productive cough or wheezing GI: Denies: abdominal pain, nausea, vomiting or hematochezia : Denies: dysuria or hematuria Skin/Breast: Denies: rash Neuro: Denies: headache(s) Psych: Denies: anxiety or depression Endo: Reports: tired all the time; Denies: hot flashes or change in body appearance Pollo/Lymph: Denies: petechiae or purpura Meds/Allergies Home Medications and Allergies Home Medications Medication Instructions Recorded Confirmed Last Taken Type amlodipine 10 mg PO DAILY 10/23/19 10/23/19 10/23/19 History aspirin [Aspir-81] 81 mg PO DAILY 10/23/19 10/23/19 Unknown History gemfibrozil 600 mg PO BID 10/23/19 10/23/19 10/22/19 History glipizide 5 mg PO BID 10/23/19 10/23/19 Unknown History insulin detemir U-100 [Levemir 25 unit SUBCUT BID 10/23/19 10/23/19 10/22/19 History FlexTouch U-100 Insuln] losartan 100 mg PO DAILY 10/23/19 10/23/19 10/22/19 History metoprolol succinate 50 mg PO DAILY 10/23/19 10/23/19 Unknown History omeprazole 20 mg PO DAILY 10/23/19 10/23/19 10/23/19 History prednisone 10 - 20 mg PO DAILY 10/23/19 10/23/19 10/23/19 History 10 mg tamsulosin 0.4 mg PO BEDTIME 10/23/19 10/23/19 10/22/19 History vitamin A 1 cap PO DAILY 10/23/19 10/23/19 Unknown History vitamin E 1 cap PO DAILY 10/23/19 10/23/19 Unknown History Allergies Allergy/AdvReac Type Severity Reaction Status Date / Time No Known Allergies Allergy Verified 10/23/19 09:37 Current Medications Current Medications Generic Name Dose Route Start Last Admin Trade Name Freq PRN Reason Stop Dose Admin Heparin Sodium (Beef Lung) 0 unit 10/23/19 11:33 10/23/19 12:03 Heparin IV 17 unit PRN PRN Administration Heparin weight-base protocol Protocol Heparin Sodium/Sodium Chloride 25,000 unit in 500 mls @ 0 mls/hr 10/23/19 11:33 10/23/19 14:38 Heparin Drip IV 0 unit/kg/hr .Q0M RENETTA 0 mls/hr Titration Protocol Per Protocol Nitroglycerin/Dextrose 50 mg in 250 mls @ 0 mls/hr 10/23/19 11:33 10/23/19 12:06 Nitroglycerin Drip IV 5 mcg/min .Q0M RENETTA 1.5 mls/hr Administration Protocol Per Protocol Sodium Chloride 1,000 mls @ 100 mls/hr 10/23/19 12:41 10/23/19 13:27 Sodium Chloride 0.9% IV 100 mls/hr .Q10H RENETTA Administration Heparin Sodium/Sodium Chloride 25,000 unit in 500 mls @ 0 mls/hr 10/23/19 13:30 10/23/19 14:35 Heparin Drip IV 13.92 unit/kg/hr .Q0M RENETTA 24 mls/hr Administration Protocol Per Protocol PFSH Acute PFSH: Medical History Chronic kidney disease Stage III Chronic use of steroids Diabetes mellitus type 2, 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 History of squamous cell carcinoma Hyperlipidemia Hypertension Surgical History History of cholecystectomy History of Mohs surgery for squamous cell carcinoma of skin Squamous cell carcinoma of the scalp Family History (Updated 10/23/19 @ 13:44 by Michelle Hargrove DO) Mother Cancer CAD (coronary artery disease) Father Hypertension Social History (Updated 10/23/19 @ 13:44 by Michelle Hargrove DO) Smoking and tobacco status: former smoker Alcohol intake: never Substance/Drug Use: never Vitals/I&O/Wt Last Vital Signs Temp 98.0 F 10/23/19 15:15 Pulse 76 10/23/19 15:15 Resp 30 H 10/23/19 15:15 BP 113/66 10/23/19 15:15 Pulse Ox 96 10/23/19 15:15 10/23/19 10/23/19 10/23/19 06:59 14:59 22:59 Intake Total 74.715 / 74.715 Balance 74.715 / 74.715 Weight last 48 hrs Weight 190 lb Physical Exam Const: COMMON NORMALS: no acute distress, average body habitus, patient oriented x3, alert and well nourished GENERAL APPEARANCE: cooperative, comfortable, well kempt and well developed ORIENTATION/CONSCIOUSNESS: Yes oriented to person, Yes oriented to place and Yes oriented to time HENMT: COMMON NORMALS: normocephalic, hearing grossly normal bilaterally, external ears normal, Normal external nose present and oropharynx normal HEAD & SCALP: normocephalic FACE & SINUS: face symmetric NOSE: Normal external nose present EXTERNAL EAR: Yes external ears normal Eye: COMMON NORMALS: Equal, round and reactive pupils present, EOMs intact bilaterally and conjunctivae normal ALIGNMENT: Yes alignment normal CONJUNCTIVA: Yes conjunctivae normal SCLERA: sclerae normal PUPIL: Yes Equal, round and reactive pupils present Neck/C-Spine: COMMON NORMALS: supple and no JVD; negative for No carotid bruits Chest: COMMONS NORMALS: normal inspection of the chest Resp: COMMON NORMALS: normal respiratory effort, No use of accessory muscles, clear to auscultation bilaterally and percussion normal AUSCULTATION: clear to auscultation bilaterally, no crackles, no rales, no rhonchi and no wheezes PERCUSSION: percussion normal Cardio: COMMON NORMALS: no JVD, regular rate, regular rhythm, S1 normal heart sound present, S2 normal heart sound present and Peripheral pulses 2+ throughout; negative for No gallops present (Cardio) and negative for No clicks present (Cardio) JUGULAR VENOUS DISTENTION: no JVD PALPATION: normal PMI, no heave, no palpable S3, no palpable S4 and no thrill RATE: regular rate RHYTHM: regular rhythm HEART SOUNDS: S1 normal heart sound present, S2 normal heart sound present, no click, no gallops and no murmurs BRUITS: no carotid bruits PERIPHERAL PULSES: Peripheral pulses 2+ throughout GI: COMMON NORMALS: Normal to inspection, nondistended, normoactive bowel sounds present, Soft to palpation and non-tender PALPATION: Yes Soft to palpation Neuro: COMMON NORMALS: patient oriented x3 and no focal motor deficits SENSORIUM/ORIENTATION: Yes alert, Yes oriented to person, Yes oriented to place and Yes oriented to time CRANIAL NERVES: Yes CN normal except as noted Psych: COMMON NORMALS: Normal thought process present APPEARANCE: Yes well kempt MOOD & AFFECT: Yes euthymic mood THOUGHT PROCESS: Normal thought process present ATTENTION/CONCENTRATION: Yes attention grossly intact INSIGHT: Good insight present (Psych) A&P Assessment and plan (1) Non-ST elevation [place] (NSTEMI): Typical anginal chest discomfort with multiple CAD risk factors. -EKG with sinus rhythm, right bundle branch block and left anterior fascicular block. BNP elevated greater than 1500 and initial troponin of 506 that decreased to 446 and 6 are troponin I of 504. -Patient currently is chest pain-free. -Case was discussed with Dr. Fernandes and plan to proceed with coronary angiogram tomorrow morning. -Continue with aspirin, atorvastatin, metoprolol and heparin drip. I will load him with 300 mg of clopidogrel. -Follow-up on echocardiogram. Status: Acute (2) Hypertension: Blood pressure running low normal. Continue current medications. Status: Acute (3) Hyperlipidemia: Status: Acute (4) Diabetes mellitus type 2, insulin dependent: Status: Acute (5) Chronic kidney disease: Status: Acute Consult Attestations Medical Necessity Statement: Patient needs hospital stay for management of non-ST elevation TN Coding Level of Care Code Acute Cell Reliner for [facility] Fw Diagnoses Non-ST elevation TN (NSTEMI) I21.4 Hypertension I10 Hyperlipidemia E78.5 Diabetes mellitus type 2, insulin dependent E11.9; Z79.4 Chronic kidney disease N18.9
[2019-10-23 16:30] LABS: Glucose Point of Care 251 mg/dL (70-110)
[2019-10-23 17:01] LABS: Troponin 5 6HR 504.4 ng/L (0-15)
[2019-10-23 17:02] LABS: Troponin 5 6HR Delta -1.6 ng/L (0-12)
[2019-10-23] MEDS: clopidogrel 300 mg Tablet PO (18:26)
[2019-10-23 19:00] LABS: Partial Thromboplastin Time 202.6 SECONDS (23.9-36.7)
[2019-10-23] MEDS: sodium chloride 0.9% 1,000 ML 50 ML IV (19:15)
--- NOTE | 2019-10-23 19:48 | PC.NURSE ---
PTT Lab result PTT is 202.6; Per Heparind rip protocol to call dr if ptt is >than 150. Talk[address] Miller in phone and telephone order received to hold Heparin drip for an hour and have a repeat PTT in an hour. If PTT is still greater than 150 to decrease rate in 5 mls/hr. Communicated the order to ongoing night nurse [facility]. Heparind drip put on hold.
[2019-10-23 20:06] LABS: Glucose Point of Care 105 mg/dL (70-110)
[2019-10-23 20:50] LABS: Partial Thromboplastin Time 123.9 SECONDS (23.9-36.7)
--- NOTE | 2019-10-23 20:53 | PC.NURSE ---
PTT came back at 123.9. Heparin drip restarted at 19 ml/hr per Dr. Miller's order.
[2019-10-23] MEDS: tamsulosin 0.4 mg Capsule PO (21:07)
[2019-10-23] MEDS: atorvastatin 40 mg Tablet PO (21:07)
[2019-10-24] VITALS (66 sets, daily range): BP systolic 87–126; BP diastolic 42–78; PULSE 76–102; RESP 0–34; TEMP 36.2–37.1; O2SAT 87–96
[2019-10-24 03:55] LABS: Basophils # 0.1 10^3/uL (0.0-0.1); Basophils % 0.8 %; Eosinophils # 0.1 10^3/uL (0.0-0.8); Eosinophils % 1.4 %; Hematocrit 32.9 % (42.0-52.0); Hemoglobin 10.3 g/dL (11.7-16.6); Lymphocytes # 0.8 10^3/uL (0.8-4.8); Lymphocytes % 10.3 %; Mean Corpuscular HGB Conc 31.3 g/dL (30.0-36.0); Mean Corpuscular Hemoglobin 29.7 pg (28.0-34.0); Mean Corpuscular Volume 94.8 fL (80-94); Mean Platelet Volume 12.1 fL (7.4-10.4); Monocytes # 0.8 10^3/uL (0.2-0.9); Monocytes % 9.8 %; Neutrophils # 6.1 10^3/uL (1.8-7.7); Neutrophils % 77.3 %; Nucleated Red Blood Cells % 0 %; Platelet Count 229 10^3/cmm (130-400); Red Blood Count 3.47 10^6/uL (4.1-5.3); Red Cell Distribution Width 15.2 % (12.1-15.1); White Blood Count 7.9 10^3/uL (4.0-10.0)
--- NOTE | 2019-10-24 04:20 | PC.NURSE ---
Patient has had an uneventful night. Patient states that he has chest pain when he gets up and moves, however it goes away when he lays down. Patient has not complained of any sustained chest pain throughout the night.
--- NOTE | 2019-10-24 04:21 | PC.NURSE ---
Called lab to see why PTT results that were ordered at 0300 have not resulted yet. Lab stated it is running right now.
[2019-10-24 04:28] LABS: Partial Thromboplastin Time 128.3 SECONDS (23.9-36.7)
[2019-10-24 04:45] LABS: Alanine Aminotransferase 14 U/L (0-41); Alkaline Phosphatase 63 IU/L (40-130); Aspartate Amino Transferase 29 U/L (0-40); Blood Urea Nitrogen 33 mg/dL (8-23); Carbon Dioxide 18 mmol/L (22-29); Chloride 110 mmol/L (98-107); Glucose 77 mg/dL (65-115); Osmolality Calculated 288 mOsm/kg (285-295); Sodium 141 mmol/L (136-145); Total Bilirubin 0.4 mg/dL (0.15-1.2)
[2019-10-24] MEDS: sodium chloride 0.9% 1,000 ML 50 ML IV (04:45)
[2019-10-24 05:10] LABS: Chol HDL Ratio 2.81 mg/dL (1.0-5.00); Cholesterol 166 mg/dL (0-200); HDL Cholesterol 59 mg/dL (60-100); LDL Cholesterol Calculated 70 mg/dL (50-129); LDL HDL Ratio 1.19 RATIO (0.00-3.22); Triglycerides 185 mg/dL (0-150)
[2019-10-24 06:17] LABS: Glucose Point of Care 89 mg/dL (70-110)
--- NOTE | 2019-10-24 07:20 | PC.NURSE ---
notified Dr Hargrove that patient was NPO with a BG of 89 and not scheduled until 1000 for heart cath instructions to hold AM dose of levemir.
[2019-10-24] MEDS: predniSONE 20 mg Tablet PO (08:55)
[2019-10-24] MEDS: metoprolol succinate ER (24 HR) 50 mg Tablet PO (08:55)
[2019-10-24] MEDS: aspirin 81 mg EC Tablet PO (08:55)
[2019-10-24] MEDS: pantoprazole DR 40 mg Tablet PO (08:55)
[2019-10-24] MEDS: diphenhydrAMINE 50 mg Capsule PO (08:55)
[2019-10-24] MEDS: clopidogrel 75 mg Tablet PO (08:55)
--- NOTE | 2019-10-24 08:55 | XACV_ITS ---
Exam Room: [facility] Ht: 175 cm Wt: 86 kg BSA: 2.06 m2 Gender: Male : 1935 Any Known Allergies: No known allergies Exam Priority: Routine Indication(s): - Non-ST elevation Procedure(s): Procedure Description: Diagnostic procedure Procedure Description: PCI procedure Procedure Description: Left Heart Catheterization Procedure Description: Drug Eluting Coronary Stent Procedure Description: PTCA Procedure Description: Miscellaneous Procedure Description: ACT Diagnostic Cath Status: Urgent Diagnostic Findings LM has 0% stenosis. LAD has 0% stenosis. CX has 0% stenosis. 1st Diagonal Coronary Artery: Severe 90% stenosis, VALERIE: 2 flow. Ramus: Severe 90% stenosis, VALERIE: 3 flow. Proximal Right Coronary Artery: Severe 85% stenosis, VALERIE: 3 flow. Coronary angiography shows right dominance. PCI Status: Urgent PCI Indication: NSTE - ACS Interventional Findings 1st Diagonal Coronary Artery: 90% stenosis treated with AB MINI TREK 2.00X12 RX BALLOON and MDT R SHARI 2.25X12 GRETEL. 0% residual stenosis, VALERIE: 3 flow. Ramus: 90% stenosis treated with AB MINI TREK 2.00X20 RX BALLOON and MDT R SHARI 2.5X15 GRETEL. 0% residual stenosis, VALERIE: 3 flow. Proximal Right Coronary Artery: 85% stenosis treated with MDT R SHARI 4.0X18 GRETEL. 0% residual stenosis, VALERIE: 3 flow. Conclusions 84-year-old male with recurrent heart failure chest pain non-STEMI baseline chronic kidney disease not a good candidate for coronary artery bypass surgery as well as he refused any intervention more than PCI was referred to ms for angiogram due to acute coronary syndrome and recurrent heart failure with possible ischemia burden. Patient underwent angiogram found to have multiple vessel disease treated with 3 drug-eluting stents including in proximal RCA, ramus intermedius and diagonal branch. Excellent angiographic result with VALERIE-3 flow was restored. Patient tolerated procedure well and transferred back to ICU. There is severe coronary artery disease with two vessel disease. 1st Diagonal Coronary Artery was treated with Balloon and Drug Eluting Stent. Ramus was treated with Balloon and Drug Eluting Stent. Proximal Right Coronary Artery was treated with Drug Eluting Stent. Recommendations 1-Return to inpatient for close monitoring and routine cath care 2-Risk factor modification for secondary prevention 3-Statin and aspirin 81 mg life--long, if tolerated 4-Patient was pre-loaded with 300 mg of Plavix, continue Plavix 75mg p.o. daily for at least one year. We will assess at the end of one year again to continue if further or not 5-Continue optimal medical management 6-Follow up with Dr. Mack in four weeks and your primary care in 10 days . Diagnostic RX Recommendation: PCI w/o planned CABG Pressures Phase:Rest AO : / ( -31 mmHg ) @ 7:06:00 AM / ( -31 mmHg ) @ 7:07:00 AM 90 mmHg / 53 mmHg ( 68 mmHg ) @ 7:08:00 AM 80 mmHg / 39 mmHg ( 55 mmHg ) @ 7:19:00 AM Clinical Evaluation EBL: 5mL-10mL Procedural Details Procedure Consent Obtained. Current Diagnosis : NSTEMI. Procedure started. Pre-Procedure Time Out. Identified patient by full name and date of as verbalized by the patient/guarantor. Does the consent match the physician's order: Yes. Accurate & Complete Informed Consent: Yes. Inpatient/Outpatient History & Physical on Chart: Yes. If H&P is completed, is and addenduem needed: No; If yes, is the addendum complete: N/A. Visualize and Verify Site with Patient/Guarantor: N/A. Relevant Radiology Images available: Yes. The risks, benefits, and alternatives of sedation and/or procedure were discussed by physician. The patient agrees to continue. Physician notified. Correct patient, site and procedure confirmed by cath team. Current diagnosis: NSTEMI. PERRLA. Strong, equal hand stock taker bilaterally. Lungs clear x 5 lobes. IV Site on Arrival: 18 gauge in the right anticubital. IV Site on Arrival: 20 gauge in the left anticubital. IV Fluids: 0.9% NaCl at KVO. 200 mL infused prior to dental laboratory assistant. Pre Procedural Pulses: bilateral dorsalis pedis was Doppled. Pre Procedural Pulses: bilateral posterior tibial was Doppled. Pre Procedural Pulses: bilateral radial was 3+. Oxygen started at 3liters/min via nasal canula. right groin was prepped with chloroprep then draped in the usual sterile fashion. right radial was prepped with chloroprep then draped in the usual sterile fashion. Baseline sample Acquired. HR: 88 BPM. [facility] Clinical Fraility Score: 4: Vulnerable. Delivery Stock Clerk Indications: ACS <= 24 hours. Chest Pain Symptom Assessment: Typical Angina Symptoms. Cardiovascular Instability: Yes, if yes, Persistant Ischemic Symptoms. Physician arrived. Family updated by Dr Fernandes. Equipment: 6F - Radial. Cardiac Cath Pack. ACIST Manifold Kit Model BT 2000. Heparinized Saline (2 units/mL), 1000 mL bag. Physician scrubbed in. Immediate Pre-Procedure Time Out. Correct Patient: Yes; Correct Procedure: Yes; Correct Site: Yes; Correct Patient Position: Yes; Correct Supplies: Yes; Dried Flammable Prep: Yes; Blood Products Available: N/A;. Lidocaine 1% infiltrated to the right radial. Arterial access obtained. A 6 faroese TIG catheter in over wire. Resistance. Wire removed. Hand injection through the TIG of the radial artery to assess for radial loop. Glidewire inserted. Catheter advanced over the wire to the LCS. Inventory: Glidewire. ACT drawn. Results 122 seconds. Therapeutic limits - pre-heparin administration 90-150 seconds and monitoring heparin during a vascular procedure >250 seconds. Glidewire removed. Multiple views taken of left coronary artery. Catheter redirected to the RCA. Multiple views taken of right coronary artery. Catheter removed over the exchange wire. Physician review of cine films. Surgery notified of intervention. Inventory is Medtronic Harman XT .014 190cm Str. Guidewire. Inventory: JR 4 SH GUIDE. PCI Indication: NSTE. 6 faroese JR 4 SH guide catheter was inserted over the exchange wire. Inventory: Endoflator. Unable to seat the GUIDE catheter. Removed over the exchange wire. 6 faroese AL 0.75SH guide catheter was inserted over the wire. Unable to seat the guide. Removed over the exchange wire. Inventory is CRD 6FR H-STICK GUIDE. 6 faroese HS guide catheter was inserted over the wire. Guide seated in the RCS. Harman guidewire was advanced through the guide catheter to lesion in the prox RCA. Guidewire advanced across lesion. Inflation Number : 1 A MDT R SHARI 4.0X18 GRETEL -Lot Number# [id number], expiration 06/20/2021, was prepped and advanced across the Prox RCA. The stent was deployed at 16 VERNON for 0:22 seconds. Angiography performed. Stent balloon and wire removed. Angiography performed. Guide catheter removed. Inventory is CRD 6FR JL 4 GUIDE. 6 faroese JL 4 guide catheter was inserted over the wire. Guide seated in the LCS. Harman guidewire was advanced through the guide catheter to lesion in the Ramus. Guidewire advanced across lesion. Inflation number : 1 A AB MINI TREK 2.00X20 RX BALLOON was prepped and advanced across the Ramus , then inflated to 18 VERNON for 0:15 seconds. Balloon out. Inflation Number : 2 A MDT R SHARI 2.5X15 GRETEL -Lot Number# [id number], EXP 06/11/2021, was prepped and advanced across the Ramus. The stent was deployed at 16 VERNON for 0:20 seconds. Angiography performed. Stent balloon out over wire. Harman wire redirected to the diagonal. Guidewire advanced across lesion. Inflation number : 1 A AB MINI TREK 2.00X12 RX BALLOON was prepped and advanced across the 1st Diag , then inflated to 12 VERNON for 0:09 seconds. Balloon out. Harman wire removed. Guide catheter out over the exchange wire. Inventory is CRD 6FR XB 3 GUIDE. 6 faroese XB 3 guide catheter was inserted over the wire. Guide seated in the LCS. ACT drawn. Results 272 seconds. Therapeutic limits - pre-heparin administration 90-150 seconds and monitoring heparin during a vascular procedure >250 seconds. Harman guidewire was advanced through the guide catheter to lesion in the diaganol. Guidewire advanced across lesion. Inflation Number : 1 A AMANDA MCCARTHY 2.25X12 GRETEL -Lot Number# [id number], EXP 05/22/2021, was prepped and advanced across the 1st Diag. The stent was deployed at 12 VERNON for 0:10 seconds. Stent balloon out. wire out. Angiography performed. Guide catheter out over wire. Physician review of films. Physician scrubbed out. A TR Band was successful obtaining hemostatsis at the Right Radial artery insertion site. TR band placed. Hemostasis obtained. Post Procedure: Pulses reassessed and unchanged. PERRLA. Strong, equal hand stock taker bilaterally. No VTE prophylaxis required. Medication's Wasted: Lidocaine 1% = 18 mL. Medication's Wasted: Nitro = 49.8 mg. Medication's Wasted: Heparin = 1000 Units. Total IV fluids: 351 mL. Fluoro: 25:04. Contrast type used: Visipaque 320 mgI/mL, 500 mL bottle. [id number]. Post-op diagnosis: Multivessel coronary artery disease. Complications: None. Estimated blood loss: 5mL-10mL. Procedure completed. Patient transferred by wheelchair to 1st floor. Vital chart was stopped. Site: Right Radial artery Sheath Size: 6 Fr Hemostasis Method: TR Band Hemostasis Success: Successful Procedure Medications Start: 11:25 AM Stop: 11:25 AM Medication: Versed Amount: 1 mg Route: I.V. Start: 11:25 AM Stop: 11:25 AM Medication: Fentanyl Amount: 25 mcg Route: I.V. Start: 11:29 AM Stop: 11:29 AM Medication: Nitrogylcerin Amount: 200 mcg Route: I.A. Start: 11:38 AM Stop: 11:38 AM Medication: Heparin Amount: 5000 units Route: I.V. Start: 11:47 AM Stop: 11:47 AM Medication: Versed Amount: 1 mg Route: I.V. Start: 11:47 AM Stop: 11:47 AM Medication: Fentanyl Amount: 25 mcg Route: I.V. Start: 12:05 PM Stop: 12:05 PM Medication: 0.9% Saline Amount: 250 ml Route: I.V. bolus Start: 12:10 PM Stop: 12:10 PM Medication: Versed Amount: 1 mg Route: I.V. Start: 12:10 PM Stop: 12:10 PM Medication: Fentanyl Amount: 25 mcg Route: I.V. Start: 12:12 PM Stop: 12:12 PM Medication: Heparin Amount: 2000 units Route: I.V. I, the attending physician, have reviewed and verified all procedure medications. Yes, all medications given per verbal order History/Risk Factors Hypertension: Yes Dyslipidemia: Yes Diabetic Therapy: Insulin Peripheral Arterial Disease (PAD): No Myocardial Infarction (OK): Yes Obesity: No Renal Disease: Yes Tobacco Use: Former Prior Interventions PCI: No CABG: No Valve Surgery: No Report Signatures Finalized by:Danielle Fernandes MD on 10/29/2019 3:42:09 PM
--- NOTE | 2019-10-24 11:13 | P.PN_ITS ---
Subjective Subjective: Interval history: Patient asleep in bed at time of exam earlier this morning. Patient reported that he was feeling better today with medications, no active chest pain on nitroglycerin drip. Discussed with patient plan for cardiac cath today, he verbalized understanding and agreed with plan. Vitals/I&O/Wt Last Vital Signs Temp 97.8 F 10/24/19 10:42 Pulse 85 10/24/19 10:42 Resp 25 H 10/24/19 10:42 BP 120/68 10/24/19 10:42 Pulse Ox 95 10/24/19 10:42 10/23/19 10/24/19 10/24/19 22:59 06:59 14:59 Intake Total 877 / 298.790 0380.883 / 2099.598 Output Total 850 / 850 400 / 1250 500 / 500 Balance 27 / 101.715 747.883 / 849.598 -500 / -500 Weight last 48 hrs Weight 85.729 kg Weight 86.183 kg Physical Exam Const: COMMON NORMALS: patient oriented x3 and alert GENERAL APPEARANCE: cooperative ORIENTATION/CONSCIOUSNESS: Yes awake, Yes oriented to person, Yes oriented to place and Yes oriented to time HENMT: COMMON NORMALS: normocephalic HEAD & SCALP: normocephalic OTHER: Postsurgical changes to the patient's scalp with no surrounding erythema or drainage Eye: COMMON NORMALS: Equal, round and reactive pupils present PUPIL: Yes Equal, round and reactive pupils present Neck/C-Spine: COMMON NORMALS: supple GENERAL: Yes normal visual inspection Resp: COMMON NORMALS: normal respiratory effort and clear to auscultation bilaterally EFFORT & INSPECTION: Yes able to speak in complete sentences AUSCULTATION: clear to auscultation bilaterally, no rhonchi and no wheezes Cardio: COMMON NORMALS: regular rate, regular rhythm and No murmurs present (Cardio) RATE: regular rate RHYTHM: regular rhythm GI: COMMON NORMALS: Soft to palpation and non-tender PALPATION: Yes Soft to palpation OTHER: Obese, soft, nontender Extremity: COMMON NORMALS: no clubbing, cyanosis or edema and no calf tenderness Neuro: COMMON NORMALS: patient oriented x3, CN's II-XII intact bilaterally, moves all extremities and no focal motor deficits SENSORIUM/ORIENTATION: Yes alert, Yes oriented to person, Yes oriented to place and Yes oriented to time SPEECH: speech normal Psych: COMMON NORMALS: mental status grossly normal and cooperative Skin: COMMON NORMALS: no rashes or lesions noted GENERAL SKIN EXAM: no rashes or lesions noted Data : 10/24/19 03:00 10/24/19 03:00 A&P Assessment and plan (1) Non-ST elevation [place] (NSTEMI): Given Plavix 300 mg by cardiology, continued on nitroglycerin drip and heparin drip Plan for cardiac cath today Cardiology, Dr. Mack consulted, appreciate recommendations and assistance in patient's care. Status: Acute (2) Hypertension: Hold amlodipine due to soft BP with nitro drip Continue home beta anamika Status: Acute (3) Hyperlipidemia: Atorvastatin 40 mg daily Status: Acute (4) Diabetes mellitus type 2, insulin dependent: Moderate dose sliding scale insulin as needed Dose of Levemir was decreased on admission due to patient being Nothing to eat or drink for procedure today, however this medication was ultimately held due to lower blood sugars and did not wish to have any hypoglycemic events. Status: Acute (5) Chronic use of steroids: Chronic steroid dependence with a history of giant cell arteritis, remains on previous baseline of 20mg daily Status: Acute (6) Chronic kidney disease: Followed by Dr. Renner Patient aware of potential risks with cardiac cath if needed. Renal function appears to be slightly improved from baseline with gentle IV hydration overnight. 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 for planned procedure CODE STATUS: Full code, this was discussed with the patient and his daughter Attestations Medical Necessity Statement*: Patient requires further hospitalization due to non-ST elevation [place] Coding Level of Care Code Acute Neck Band Setter for [facility] Diagnoses Non-ST elevation [place] (NSTEMI) I21.4 Hypertension I10 Hyperlipidemia E78.5 Diabetes mellitus type 2, insulin dependent E11.9; Z79.4 Chronic use of steroids Chronic kidney disease N18.9
[2019-10-24 11:21] LABS: Glucose Point of Care 88 mg/dL (70-110)
[2019-10-24 11:29] LABS: Partial Thromboplastin Time 131.7 SECONDS (23.9-36.7)
[2019-10-24] MEDS: sodium chloride 0.9% 1,000 ML 75 ML IV (13:28)
--- NOTE | 2019-10-24 13:34 | PC.NURSE ---
Dr rivera at bedside to asses and update the patient
[2019-10-24 16:25] LABS: Glucose Point of Care 246 mg/dL (70-110)
--- NOTE | 2019-10-24 17:40 | P.PN_ITS ---
Subjective Subjective: Interval history: s/p PCI with GRETEL to Px D1, Px RCA and ramus. Post procedure patient is doing well. No CP. Medications: Reviewed: Yes Vitals/I&O/Wt Last Vital Signs Temp 98.7 F 10/24/19 14:53 Pulse 84 10/24/19 14:53 Resp 20 H 10/24/19 14:53 BP 111/56 10/24/19 14:53 Pulse Ox 93 10/24/19 14:53 10/24/19 10/24/19 10/24/19 06:59 14:59 22:59 Intake Total 1147.883 / 2099.598 240 / 240 Output Total 400 / 1250 500 / 500 Balance 747.883 / 849.598 -500 / -500 240 / -260 Weight last 48 hrs Weight 189 lb Weight 190 lb Physical Exam Const: COMMON NORMALS: no acute distress, average body habitus, patient oriented x3, alert and well nourished GENERAL APPEARANCE: cooperative, comfortable, well kempt and well developed ORIENTATION/CONSCIOUSNESS: Yes oriented to person, Yes oriented to place and Yes oriented to time HENMT: COMMON NORMALS: normocephalic and hearing grossly normal bilaterally HEAD & SCALP: normocephalic Eye: COMMON NORMALS: Equal, round and reactive pupils present and conjunctivae normal ALIGNMENT: Yes alignment normal CONJUNCTIVA: Yes conjunctivae normal SCLERA: sclerae normal PUPIL: Yes Equal, round and reactive pupils present Neck/C-Spine: COMMON NORMALS: supple and no JVD; negative for No carotid bruits Chest: COMMONS NORMALS: normal inspection of the chest Resp: COMMON NORMALS: normal respiratory effort, No use of accessory muscles, clear to auscultation bilaterally and percussion normal AUSCULTATION: clear to auscultation bilaterally, no crackles, no rales, no rhonchi and no wheezes PERCUSSION: percussion normal Cardio: COMMON NORMALS: no JVD, regular rate, regular rhythm, S1 normal heart sound present, S2 normal heart sound present and Peripheral pulses 2+ throughout JUGULAR VENOUS DISTENTION: no JVD PALPATION: normal PMI, no heave, no palpable S3, no palpable S4 and no thrill RATE: regular rate RHYTHM: regular rhythm HEART SOUNDS: S1 normal heart sound present, S2 normal heart sound present, no click, no gallops and no murmurs BRUITS: no carotid bruits PERIPHERAL PULSES: Peripheral pulses 2+ throughout Neuro: COMMON NORMALS: patient oriented x3 and no focal motor deficits SENSORIUM/ORIENTATION: Yes alert, Yes oriented to person, Yes oriented to place and Yes oriented to time CRANIAL NERVES: Yes CN normal except as noted Psych: COMMON NORMALS: Normal thought process present APPEARANCE: Yes well kempt MOOD & AFFECT: Yes euthymic mood THOUGHT PROCESS: Normal thought process present Data : 10/24/19 03:00 10/24/19 03:00 A&P Assessment and plan (1) Non-ST elevation [place] (NSTEMI): Typical anginal chest discomfort with multiple CAD risk factors. -EKG with sinus rhythm, right bundle branch block and left anterior fascicular block. BNP elevated greater than 1500 and initial troponin of 506 that decreased to 446 and 6 are troponin I of 504. -Patient currently is chest pain-free. -Continue with aspirin, atorvastatin, metoprolol and clopidogrel. 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 Please feel free to call with questions or concerns. DVT prophylaxis: Previously placed on heparin drip, will continue Diet: N.p.o. for planned procedure CODE STATUS: Full code, this was discussed with the patient and his daughter Attestations Medical Necessity Statement*: Needs hospital stay for NSTEMI Coding Level of Care Code Acute Document Control Specialist for [facility] Fwd Diagnoses Non-ST elevation IA (NSTEMI) I21.4 Hypertension I10 Hypertension type: essential hypertension Hyperlipidemia E78.2 Hyperlipidemia type: mixed hyperlipidemia Diabetes mellitus type 2, insulin dependent E11.9; Z79.4 Chronic kidney disease N18.3 Chronic kidney disease stage: stage 3 (moderate)
--- NOTE | 2019-10-24 18:57 | PC.NURSE ---
TR band removal per protocol patient did bleed mildly and ahead to replace 3 ml of air let set for 20 min then taken down with no other issues patient does have a large red bruise around area although does not look to be a hematoma patient denies any pain, clear bandage placed will monitor cor changes or active bleeding.
[2019-10-24 20:42] LABS: Glucose Point of Care 281 mg/dL (70-110)
[2019-10-24] MEDS: atorvastatin 40 mg Tablet PO (21:10)
[2019-10-24] MEDS: tamsulosin 0.4 mg Capsule PO (21:11)
[2019-10-25] VITALS (7 sets, daily range): BP systolic 90–131; BP diastolic 49–69; PULSE 73–82; RESP 15–22; TEMP 36.4; O2SAT 93–98
[2019-10-25] MEDS: sodium chloride 0.9% 1,000 ML 75 ML IV (00:45)
--- NOTE | 2019-10-25 03:45 | PC.NURSE ---
Patient has had an uneventful night. Patient does not have any complaints at this time. Patient states I feel a lot better now that I did before that heart procedure. Patient's right wrist dressing is c/d/i. No oozing or hematoma noted. Slight bruising noted, but no changes from beginning of shift. Will continue to monitor.
[2019-10-25 04:43] LABS: Basophils # 0.1 10^3/uL (0.0-0.1); Basophils % 0.6 %; Eosinophils # 0.1 10^3/uL (0.0-0.8); Eosinophils % 0.8 %; Hematocrit 31.9 % (42.0-52.0); Hemoglobin 10.1 g/dL (11.7-16.6); Lymphocytes # 0.6 10^3/uL (0.8-4.8); Lymphocytes % 7.8 %; Mean Corpuscular HGB Conc 31.7 g/dL (30.0-36.0); Mean Corpuscular Hemoglobin 29.4 pg (28.0-34.0); Mean Corpuscular Volume 92.7 fL (80-94); Mean Platelet Volume 11.9 fL (7.4-10.4); Monocytes # 0.6 10^3/uL (0.2-0.9); Neutrophils # 6.4 10^3/uL (1.8-7.7); Neutrophils % 82.5 %; Nucleated Red Blood Cells % 0 %; Platelet Count 254 10^3/cmm (130-400); Red Blood Count 3.44 10^6/uL (4.1-5.3); White Blood Count 7.7 10^3/uL (4.0-10.0)
[2019-10-25 05:04] LABS: Anion Gap 15.8 (5-19); Blood Urea Nitrogen 29 mg/dL (8-23); Calcium 8.9 mg/dL (8.5-10.5); Carbon Dioxide 18 mmol/L (22-29); Chloride 111 mmol/L (98-107); Glucose 63 mg/dL (65-115); Osmolality Calculated 287 mOsm/kg (285-295); Potassium 3.8 mmol/L (3.5-5.1); Sodium 141 mmol/L (136-145)
[2019-10-25 06:35] LABS: Glucose Point of Care 79 mg/dL (70-110)
[2019-10-25] MEDS: clopidogrel 75 mg Tablet PO (09:00)
[2019-10-25] MEDS: predniSONE 20 mg Tablet PO (09:00)
[2019-10-25] MEDS: metoprolol succinate ER (24 HR) 50 mg Tablet PO (09:00)
[2019-10-25] MEDS: aspirin 81 mg EC Tablet PO (09:00)
[2019-10-25] MEDS: pantoprazole DR 40 mg Tablet PO (09:00)
--- NOTE | 2019-10-25 09:03 | PC.NURSE ---
DISCUSSED THIS MORNINGS BLOOD SUGAR RESULT OF [address] ZAYAS. ORDERED TO ONLY GIVE 10 UNITS OF LEVEMIR.
--- NOTE | 2019-10-25 09:57 | P.DS_ITS ---
Discharge Providers Date of Admission: 10/23/19 11:33 Date of Discharge: October 25, 2019 Attending Provider at Admission: Michelle Hargrove DO Attending Provider at Discharge: Michelle Hargrove DO Primary Care Provider: Jorge Alberto Mitchell DO Diagnoses at Discharge Discharge Diagnosis (1) Non-ST elevation PA (NSTEMI): Status: Acute (2) Hypertension: Status: Acute Qualifiers: Hypertension type: essential hypertension Qualified Code(s): I10 - Essential (primary) hypertension (3) Hyperlipidemia: Status: Acute Qualifiers: Hyperlipidemia type: mixed hyperlipidemia Qualified Code(s): E78.2 - Mixed hyperlipidemia (4) Diabetes mellitus type 2, insulin dependent: Status: Acute (5) Chronic kidney disease: Status: Acute Problem details: Stage III Qualifiers: Chronic kidney disease stage: stage 3 (moderate) Qualified Code(s): N18.3 - Chronic kidney disease, stage 3 (moderate) Reason for Visit Reason for Visit: CP Hospital Course Hospital Course: Patient was seen and evaluated in the emergency department noted to have concern for chest pain with non-ST elevation PA. Patient was admitted to the hospital for further evaluation and treatment. Cardiology was consulted while patient was in the emergency department. Patient was admitted to cardiac floor with serial EKG, troponin, telemetry monitoring. He did have a downtrend in his troponin with nonspecific EKG findings. He was started on a heparin drip and nitroglycerin drip due to continued chest pain. With nitroglycerin drip patient's pain resolved. He was kept nothing to eat for cardiac catheterization. He underwent cardiac catheterization on 10/24/2019 and had PCI to first diagonal branch, proximal RCA and ramus. Patient did well following the procedure with no further chest pain or dyspnea. On date of discharge she was awake in bed denied any concerns. Renal function was monitored closely due to his chronic kidney disease and his BUN and creatinine remained at baseline. Discussed with patient need for close follow-up with his primary care provider to continue to monitor his renal function in the outpatie nt setting in 2 days, he verbalized understanding. He stated that he felt ready for discharge with no concerns. Discussed with patient plan for discharge to home and he verbalized understanding and agreed with plan. Discussed with patient home medication changes, he verbalized understanding. Physical Exam Const: COMMON NORMALS: patient oriented x3 and alert GENERAL APPEARANCE: cooperative ORIENTATION/CONSCIOUSNESS: Yes awake, Yes oriented to person, Yes oriented to place and Yes oriented to time HENMT: COMMON NORMALS: normocephalic HEAD & SCALP: normocephalic OTHER: Postsurgical changes to the patient's scalp with no surrounding erythema or drainage Eye: COMMON NORMALS: Equal, round and reactive pupils present PUPIL: Yes Equal, round and reactive pupils present Neck/C-Spine: COMMON NORMALS: supple GENERAL: Yes normal visual inspection Resp: COMMON NORMALS: normal respiratory effort and clear to auscultation bilaterally EFFORT & INSPECTION: Yes able to speak in complete sentences AUSCULTATION: clear to auscultation bilaterally, no rhonchi and no wheezes Cardio: COMMON NORMALS: regular rate, regular rhythm and No murmurs present (Cardio) RATE: regular rate RHYTHM: regular rhythm GI: COMMON NORMALS: Soft to palpation and non-tender INSPECTION: No a bdominal distension AUSCULTATION: Yes normoactive bowel sounds PALPATION: Yes Soft to palpation OTHER: Obese, soft, nontender Extremity: COMMON NORMALS: no clubbing, cyanosis or edema and no calf tenderness Neuro: COMMON NORMALS: patient oriented x3, CN's II-XII intact bilaterally, moves all extremities and no focal motor deficits SENSORIUM/ORIENTATION: Yes alert, Yes oriented to person, Yes oriented to place and Yes oriented to time SPEECH: speech normal Psych: COMMON NORMALS: mental status grossly normal and cooperative Skin: COMMON NORMALS: no rashes or lesions noted GENERAL SKIN EXAM: no rashes or lesions noted Discharge Data Data Completed and Pending: Completed Studies During Hospitalization Category Date Time Status [employer] request for service Routin e Exams 10/24/19 08:55 Completed XR chest 1V gudelia ble [id number] Stat Exams 10/23/19 09:43 Completed CV echo complete* [id number] Routine Ultrasound 10/23/19 14:02 Completed Labs from last 24 hours 10/25/19 10/25/19 10/25/19 06:21 04:00 04:00 WBC 7.7 RBC 3.44 L Hgb 10.1 L Hct 31.9 L MCV 92.7 MCH 29.4 MCHC 31.7 RDW 15.0 Plt Count 254 MPV 11.9 H Neut % (Auto) 82.5 Lymph % (Auto) 7.8 [place] % (Auto) 8.0 Eos % (Auto) 0.8 Baso % (Auto) 0.6 Neut # (Auto) 6.4 Lymph # (Auto) 0.6 L [place] # (Auto) 0.6 Eos # (Auto) 0.1 Baso # (Auto) 0.1 Nucleated RBC % (a uto) 0 Nucleated RBCs # 0.0 APTT Sodium 141 Potassium 3.8 Chloride 111 H Carbon Dioxide 18 L Anion Gap 15.8 BUN 29 H Creatinine 2.0 H Glucose 63 L POC Glucose 79 Calculated Osmolal ity 287 Calcium 8.9 10/24/19 10/24/19 10/24/19 20:17 16:21 10:48 WBC RBC Hgb Hct MCV MCH MCHC RDW Plt Count MPV Neut % (Auto) Lymph % (Auto) [place] % (Auto) Eos % (Auto) Baso % (Auto) Neut # (Auto) Lymph # (Auto) [place] # (Auto) Eos # (Auto) Baso # (Auto) Nucleated RBC % (a uto) Nucleated RBCs # APTT 131.7 H Sodium Potassium Chloride Carbon Dioxide Anion Gap BUN Creatinine Glucose POC Glucose 281 246 Calculated Osmolal ity Calcium 10/24/19 10:42 WBC RBC Hgb Hct MCV MCH MCHC RDW Plt Count MPV Neut % (Auto) Lymph % (Auto) [place] % (Auto) Eos % (Auto) Baso % (Auto) Neut # (Auto) Lymph # (Auto) [place] # (Auto) Eos # (Auto) Baso # (Auto) Nucleated RBC % (a uto) Nucleated RBCs # APTT Sodium Potassium Chloride Carbon Dioxide Anion Gap BUN Creatinine Glucose POC Glucose 88 Calculated Osmolal ity Calcium Vitals: Last Vital Signs Temp 97.5 F L 10/25/19 08:00 Pulse 76 10/25/19 08:00 Resp 21 H 10/25/19 08:00 BP 131/69 10/25/19 08:00 Pulse Ox 98 10/25/19 08:00 Discharge Plan Discharge Patient Disposition: Home, Self-Care Condition: Stable Prescriptions: New atorvastatin 40 mg Tablet 40 mg PO BEDTIME 30 Days Qty: 30 RF: 0 clopidogrel 75 mg Tablet 75 mg PO DAILY 30 Days Qty: 30 RF: 0 nitroglycerin [Nitrostat] 0.4 mg Tablet, Sublingual 0.4 mg sublingual Q5M PRN (Reason: Chest Pain) 30 Days Qty: 20 RF: 0 Continued prednisone 10 mg tablet 10 - 20 mg PO DAILY RF: 0 metoprolol succinate 50 mg tablet extended release 24 hr 50 mg PO DAILY RF: 0 Aspir-81 81 mg Tablet,Delayed Release (Dr/Ec) 81 mg PO DAILY RF: 0 tamsulosin 0.4 mg capsule 0.4 mg PO BEDTIME RF: 0 omeprazole 20 mg capsule,delayed release(DR/EC) 20 mg PO DAILY RF: 0 losartan 100 mg tablet 100 mg PO DAILY RF: 0 glipizide 5 mg tablet 5 mg PO BID RF: 0 Levemir FlexTouch U-100 Insuln 100 unit/mL (3 mL) insulin pen 25 unit SUBCUT BID RF: 0 vitamin A 1 cap PO DAILY RF: 0 vitamin E 1 cap PO DAILY RF: 0 Discontinued amlodipine 10 mg tablet 10 mg PO DAILY RF: 0 gemfibrozil 600 mg tablet 600 mg PO BID RF: 0 Discharge Orders: Discharge Order (Routine); Ordered 10/25/19 Ordered By: Michelle Hargrove Referrals: Romeo Renner MD [Referring] - (Follow-up as previously scheduled) Jorge Alberto Mitchell DO [Primary Care Provider] - 1-3 days (Follow-up with Dr. Mitchell on Wednesday, recommend recheck BMP at that time.) Salima Mack MD [Physician] - 1 week (Follow-up with cardiology office in 1 week, Radha Tang. With follow-up with Dr. Mack in 2 months) Discharge Diet: Cardiac and Diabetic Discharge Activity: Increase activity as tolerated, Limit activity as instructed and Cpap/Bipap as instructed Activity Restrictions/Additional Instructions: New diagnosis of coronary artery disease. You had a cardiac cath performed on 10/24/2019 with stent placement x3. Will recommend cardiology follow-up in 1 week with recheck by the retort or condenser press operator in 4 weeks. Will need to follow with your primary care provider, Dr Mitchell, by Wednesday to r echeck renal function at that time(blood work). Due to this new diagnosis of coronary artery disease and stent placement you will need to restart your aspirin, started on a new medication called Plavix 75 mg daily, continue on metoprolol, started on atorvastatin 40 mg daily. May discontinue gemfibrozil. Continue on losartan. Follow-up with cardiology as noted above. Continue with follow-up with Dr. Renner as previously scheduled. Continue with current insulin regimen, titrate as recommended by your primary care provider Discontinued amlodipine at this time, this may need to be restarted at a lower dose if your blood pressure remains elevated, however has been on the lower side during admission, therefore it was discontinued at time of discharge. Please monitor lifting restrictions as discussed by the retort or condenser press operator, no lifting more than 5 pounds for 48 hours. Call your physician or present to the ED for any acute illness or concern. Discharge Attestations Time Spent in Discharge Care*: greater than 30 min Specific Discharge Activities: Specific discharge activities: educating patient, educating and/or supporting family/caregiver, discussing with pcp/other providers and documenting/other paperwork Quality Metrics Clinical Quality Measures During this hospital stay, did patient experience: AMI Clinical Trial Participant: No Contraindication to aspirin (AMI): Aspirin given Contraindication to statin: Statin prescribed Contraindication to PCI: PCI performed Coding Level of Care Code Acute Textile Conservator for [facility] Fwd Exam Comprehensive Diagnoses Non-ST elevation PA (NSTEMI) I21.4 Hypertension I10 Hypertension type: essential hypertension Hyperlipidemia E78.2 Hyperlipidemia type: mixed hyperlipidemia Diabetes mellitus type 2, insulin dependent E11.9; Z79.4 Chronic kidney disease N18.3 Chronic kidney disease stage: stage 3 (moderate)
--- NOTE | 2019-10-25 10:27 | P.PN_ITS ---
Subjective Subjective: Interval history: Patient has been doing well overall. No CP, SOB overnight. Ready to go home. Medications: Reviewed: Yes Medication Review Details: Current Medications Acetaminophen (Tylenol) 650 mg PO Q6H PRN PRN Reason: Mild/Mod Pain Or Temp >/= 101 Al Hydrox/Mg Hydrox/Simethicone (Maalox) 30 ml PO Q15M PRN PRN Reason: INDIGESTION Alprazolam (Xanax) 0.25 mg PO TID PRN PRN Reason: ANXIETY Aspirin (Aspirin Ec) 81 mg PO DAILY [facility] Last Admin: 10/25/19 09:00 Dose: 81 mg Documented by: Atorvastatin Calcium (Lipitor) 40 mg PO BEDTIME [facility] Last Admin: 10/24/19 21:10 Dose: 40 mg Documented by: Atropine Sulfate (Atropine) 0.5 mg IVP PRN PRN PRN Reason: Symptomatic bradycardia Clopidogrel Bisulfate (Plavix) 75 mg PO DAILY [facility] Last Admin: 10/25/19 09:00 Dose: 75 mg Documented by: Dextrose (D50w) 25 ml IVP ONCE PRN; Protocol PRN Reason: hypoglycemia protocol Dextrose (D50w) 50 ml IVP PRN PRN; Protocol PRN Reason: hypoglycemia protocol Glucagon (Glucagen) 1 mg IM ONCE PRN; Protocol PRN Reason: Adult Acute Hypoglycemia Prot. Dextrose (D5w) 500 mls @ 100 mls/hr IV ONCE PRN; Protocol PRN Reason: Adult Acute Hypoglycemia Prot Sodium Chloride (Sodium Chloride 0.9%) 1,000 mls @ 75 mls/hr IV .[id number] [facility] Last Admin: 10/25/19 00:45 Dose: 75 mls/hr Documented by: Insulin Aspart (Novolog) 0 unit SUBCUT BEDTIME [facility]; Protocol Last Admin: 10/24/19 21:11 Dose: 5 unit Documented by: Insulin Aspart (Novolog) 0 unit SUBCUT TIDWM [facility]; Protocol Last Admin: 10/25/19 07:29 Dose: Not Given Documented by: Insulin Detemir (Levemir) 10 unit SUBCUT Q12H [facility] Last Admin: 10/25/19 09:00 Dose: 10 unit Documented by: Magnesium Hydroxide (Milk Of Magnesia) 30 ml PO DAILY PRN PRN Reason: CONSTIPATION Metoprolol Succinate (Toprol Xl) 50 mg PO DAILY [facility] Last Admin: 10/25/19 09:00 Dose: 50 mg Documented by: Morphine Sulfate (Morphine) 2 mg IVP Q4H PRN PRN Reason: SEVERE PAIN Naloxone HCl (Narcan) 0.1 mg IVP Q2M PRN PRN Reason: OPIATERV Nitroglycerin (Nitrostat) 0.4 mg SUBLINGUAL Q5M PRN PRN Reason: CHEST PAIN Ondansetron HCl (Zofran) 4 mg IVP Q6H PRN PRN Reason: NAUSEA AND VOMITING Pantoprazole Sodium (Protonix) 40 mg PO DAILY [facility] Last Admin: 10/25/19 09:00 Dose: 40 mg Documented by: Prednisone (Prednisone) 20 mg PO DAILY [facility] Last Admin: 10/25/19 09:00 Dose: 20 mg Documented by: Tamsulosin HCl (Flomax) 0.4 mg PO BEDTIME [facility] Last Admin: 10/24/19 21:11 Dose: 0.4 mg Documented by: Temazepam (Restoril) 15 mg PO BEDTIME PRN PRN Reason: INSOMNIA Vitals/I&O/Wt Last Vital Signs Temp 97.5 F L 10/25/19 08:00 Pulse 76 10/25/19 08:00 Resp 21 H 10/25/19 08:00 BP 131/69 10/25/19 08:00 Pulse Ox 98 10/25/19 08:00 10/24/19 10/25/19 10/25/19 22:59 06:59 14:59 Intake Total 240 / 240 1146.25 / 1386.25 360 / 360 Output Total 300 / 800 950 / 1750 Balance -60 / -560 196.25 / -363.75 360 / 360 Weight last 48 hrs Weight 186 lb 4.8 oz Weight 189 lb Physical Exam Const: COMMON NORMALS: no acute distress, average body habitus, patient oriented x3, alert and well nourished GENERAL APPEARANCE: cooperative, comfortable, well kempt and well developed ORIENTATION/CONSCIOUSNESS: Yes oriented to person, Yes oriented to place and Yes oriented to time Eye: COMMON NORMALS: Equal, round and reactive pupils present and conjunctivae normal CONJUNCTIVA: Yes conjunctivae normal SCLERA: sclerae normal PUPIL: Yes Equal, round and reactive pupils present Neck/C-Spine: COMMON NORMALS: supple and no JVD; negative for No carotid bruits Chest: COMMONS NORMALS: normal inspection of the chest Resp: COMMON NORMALS: clear to auscultation bilaterally AUSCULTATION: clear to auscultation bilaterally, no crackles, no rales, no rhonchi and no wheezes Cardio: COMMON NORMALS: no JVD, regular rate, regular rhythm, S1 normal heart sound present, S2 normal heart sound present and Peripheral pulses 2+ throughout JUGULAR VENOUS DISTENTION: no JVD PALPATION: normal PMI, no heave and no palpable S3 RATE: regular rate RHYTHM: regular rhythm HEART SOUNDS: S1 normal heart sound present, S2 normal heart sound present, no gallops and no murmurs BRUITS: no carotid bruits PERIPHERAL PULSES: Peripheral pulses 2+ throughout Extremity: OTHER: Right wrist with some bruising, No hematoma. 2+ radial Neuro: COMMON NORMALS: patient oriented x3 SENSORIUM/ORIENTATION: Yes alert, Yes oriented to person, Yes oriented to place and Yes oriented to time CRANIAL NERVES: Yes CN normal except as noted Psych: COMMON NORMALS: Normal thought process present APPEARANCE: Yes well kempt MOOD & AFFECT: Yes euthymic mood THOUGHT PROCESS: Normal thought process present Data : 10/25/19 04:00 10/25/19 04:00 A&P Assessment and plan (1) Non-ST elevation [place] (NSTEMI): Typical anginal chest discomfort with multiple CAD risk factors. -EKG with sinus rhythm, right bundle branch block and left anterior fascicular block. BNP elevated greater than 1500 and initial troponin of 506 that decreased to 446 and 6 are troponin I of 504. -Multivessel CAD on [facility] by Dr. Fernandes. s/p GRETEL tp Px RCA (90% long lesion), px D1(95% stenosis) and Px ramus (80-90% stenosis). He was considered not a good candidate for CABG given other co-morbidites and age. -Continue with aspirin, atorvastatin, metoprolol and clopidogrel and NTG SL on D/C. -Normal Lv function on echocardiogram. -Follow up with Ms. Tang in1 week for site check, labs and cardiac rehab. -Follow up with me in 6-8 weeks. Status: Acute (2) Hypertension: BP fairly controlled, stop amlodipine on discharge. -BP/HR log and further changes based on that. 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 Please feel free to call with questions or concerns. Attestations Medical Necessity Statement*: Stable to be discharged home from cardiac stand point. Coding Level of Care Code Acute Asw Specialist for g Fwd Diagnoses Non-ST elevation NH (NSTEMI) I21.4 Hypertension I10 Hypertension type: essential hypertension Hyperlipidemia E78.2 Hyperlipidemia type: mixed hyperlipidemia Diabetes mellitus type 2, insulin dependent E11.9; Z79.4 Chronic kidney disease N18.3 Chronic kidney disease stage: stage 3 (moderate)
[2019-10-25 12:09] LABS: Glucose Point of Care 223 mg/dL (70-110)
== END 2019-10-25 12:39 | disposition home or self-care (01) | DRG 247 ==
LOC: ER 09:45 → CSU 12:07
PROVIDERS: Family Medicine; Internal Medicine; Internal Medicine Cardiovascular Disease; Admitting Provider Family Medicine; PCP Family Medicine; Visit Provider Family Medicine
PROC: 027236Z Dilation of Coronary Artery, Three Arteries with Three Drug-eluting Intraluminal Devices, Percutaneous Approach (ICD-10-PCS; principal; 2019-10-24 10:00)
PROC: 027236Z Dilation of Coronary Artery, Three Arteries with Three Drug-eluting Intraluminal Devices, Percutaneous Approach (ICD-10-PCS; 2019-10-24 10:00)
DX: I21.4 Non-ST elevation (NSTEMI) myocardial infarction (principal); I12.9 Hypertensive chronic kidney disease with stage 1 through stage 4 chronic kidney disease, or unspecified chronic kidney disease; E11.22 Type 2 diabetes mellitus with diabetic chronic kidney disease; N18.3 Chronic kidney disease, stage 3 (moderate); E78.2 Mixed hyperlipidemia; M31.6 Other giant cell arteritis; Z79.52 Long term (current) use of systemic steroids; Z85.828 Personal history of other malignant neoplasm of skin; Z87.891 Personal history of nicotine dependence; I45.10 Unspecified right bundle-branch block; I51.7 Cardiomegaly; Z79.82 Long term (current) use of aspirin; Z79.84 Long term (current) use of oral hypoglycemic drugs
CPT/HCPCS: 12345; 36415; 36416; 71045; 80048; 80053; 80061; 82550; 82962; 83735; 83880; 84100; 84443; 84484; 85025; 85347; 85610; 85730; 93005; 93306; 93454; 94660; 96372; 96375; 99282; C1725; C1769; C1874; C1887; C1894; C9600; C9601; J1644; J1815; J2001; J2250; J3010; J3490; J7030; J7040; J7512; Q0163; Q9967

== ENCOUNTER → 2019-11-01 12:05 | Outpatient (BNVA) | payer MEDICARE, BC, SELFPAY | PROVIDERS: PCP Family Medicine; Visit Provider Nurse Practitioner Family | DX: I25.119 Atherosclerotic heart disease of native coronary artery with unspecified angina pectoris (principal) | CPT/HCPCS: 80048 ==

== ENCOUNTER 2019-11-14 11:29 | Outpatient (RCR) | payer MEDICARE, BC, SELFPAY | END 2019-12-08 23:59 | disposition home or self-care (01) | LOC: CR 11:29 | PROVIDERS: PCP Family Medicine; Referring Provider Internal Medicine Cardiovascular Disease; Visit Provider Internal Medicine Cardiovascular Disease | DX: I25.10 Atherosclerotic heart disease of native coronary artery without angina pectoris (principal); Z95.5 Presence of coronary angioplasty implant and graft | CPT/HCPCS: 93798 ==

== ENCOUNTER → 2019-11-15 11:40 | Outpatient (BNVA) | payer MEDICARE, BC, SELFPAY | PROVIDERS: PCP Family Medicine; Visit Provider Nurse Practitioner Family | DX: N18.3 Chronic kidney disease, stage 3 (moderate) (principal); R60.0 Localized edema | CPT/HCPCS: 80048 ==

== ENCOUNTER → 2019-11-23 09:46 | Outpatient (BNVA) | payer MEDICARE, BC, SELFPAY | PROVIDERS: PCP Family Medicine; Visit Provider Internal Medicine Cardiovascular Disease | DX: I25.119 Atherosclerotic heart disease of native coronary artery with unspecified angina pectoris (principal); R60.0 Localized edema; N18.3 Chronic kidney disease, stage 3 (moderate); E78.2 Mixed hyperlipidemia; Z79.4 Long term (current) use of insulin; E11.22 Type 2 diabetes mellitus with diabetic chronic kidney disease; I12.9 Hypertensive chronic kidney disease with stage 1 through stage 4 chronic kidney disease, or unspecified chronic kidney disease | CPT/HCPCS: 80048; 83735; 83880 ==

== ENCOUNTER 2019-11-28 07:57 | Emergency (ER) | payer MEDICARE, BC, SELFPAY ==
[2019-11-28 08:08] VITALS: BP 95/47; PULSE 60; RESP 12; O2SAT 97; BMI 28.0
[2019-11-28 08:15] VITALS: O2SAT 98
--- NOTE | 2019-11-28 08:19 | ED_ITS ---
HPI - General Adult General: Chief complaint: Abdominal Pain Stated complaint: rectal bleeding Time Seen by Provider: 11/28/19 08:03 History of Present Illness: HPI narrative: Patient complains about onset of rectal bleeding at 4:00 this morning. He has had 3-4 bowel movements with some bright red blood. Does have a history of hemorrhoids. Did start on Plavix couple weeks ago for 3 stents he had placed here. Has slight abdominal pain right upper quadrant. Denies any nausea vomiting does feel little weak. MD complaint: Rectal bleeding Onset (ago): hour(s) Associated symptoms: Reports no associated symptoms; Deny chest pain, dyspnea, headache(s), nausea, rash or vomiting Treatments prior to arrival: none Review of Systems Const: Denies: fever(s), chills or body aches Eyes: Denies: change in vision or blurry vision ENMT: Denies: throat pain or nasal congestion Card: Denies: chest pain or dyspnea on exertion Resp: Denies: dyspnea, productive cough or non-productive cough GI: Reports: hematochezia (Rectal bleeding started at 0 400 this morning); Denies: abdominal pain, nausea or vomiting : Denies: difficulty urinating Musc: Denies: extremity pain Skin/Breast: Denies: rash Neuro: Denies: headache(s) Psych: Denies: anxiety or depression [place]/Lymph: Denies: easy bruising PFSH ED PFSH: Medical History (Updated 11/28/19 @ 11:17 by ANNETTE Stark) Chronic kidney disease Stage III Chronic use of steroids Coronary artery disease Diabetes mellitus type 2, 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 History of squamous cell carcinoma Hyperlipidemia Hypertension Surgical History History of cholecystectomy History of Mohs surgery for squamous cell carcinoma of skin Squamous cell carcinoma of the scalp Family History Mother Cancer CAD (coronary artery disease) Father Hypertension Social History Smoking and tobacco status: former smoker Alcohol intake: never Physical Exam Const: COMMON NORMALS: no acute distress, average body habitus and patient oriented x3 HENMT: COMMON NORMALS: normocephalic HEAD & SCALP: normal to inspection and normocephalic FACE & SINUS: normal facial exam Eye: COMMON NORMALS: conjunctivae normal GENERAL EYE: appearance normal, both eyes and all related structures CONJUNCTIVA: Yes conjunctivae normal Neck/C-Spine: COMMON NORMALS: no JVD Chest: COMMONS NORMALS: normal inspection of the chest Resp: COMMON NORMALS: normal respiratory effort and clear to auscultation bilaterally AUSCULTATION: clear to auscultation bilaterally Cardio: COMMON NORMALS: no JVD, regular rate and regular rhythm RATE: regular rate RHYTHM: regular rhythm GI: COMMON NORMALS: Normal to inspection, nondistended, normoactive bowel sounds present PALPATION: Yes Tenderness to palpation present (GI) Details: RUQ RECTAL EXAM: Yes heme positive stool and Yes hemorrhoids Extremity: COMMON NORMALS: normal to inspection and full ROM Neuro: COMMON NORMALS: patient oriented x3 Procedures Stool Hemoccult Procedural Steps Taken: stool placed in appropriate test area, developer placed on stool and control areas and controls appropriately positive and negative Hemoccult result: positive Additional Comments: pinkish tint Course Vital Signs: Vital signs: Vital Signs Pulse Rate 54 L 11/28/19 10:04 Respiratory Rate 12 11/28/19 08:08 Blood Pressure 113/58 11/28/19 10:04 Pulse Oximetry 96 11/28/19 09:14 MDM - General Adult MDM Narrative: Medical decision making narrative: Discussed with patient causes rectal bleeding. Spoke with Dr. Culver's office spoke to Juliet's nurse. They want him to stay on his present medication. They will contact him again this afternoon. Discussed case with Dr. Mendez and recommend CBC follow-up tomorrow. Patient aware of blood thinner possibly causing his rectal bleeding. Patient did have a colonoscopy 2 years ago which was negative. Did discuss CT report which showed enlarging mass in the liver and chronic slight obstruction in the colon. Did discuss diverticulosis with the patient also. Lab Data: Labs: Lab Results 11/28/19 11/28/19 11/28/19 Range/Units 08:48 08:48 08:48 WBC 9.7 (4.0-10.0) 10^3/ uL RBC 3.69 L (4.1-5.3) 10^6/u L Hgb 10.7 L (11.7-16.6) g/dL Hct 35.6 L (42.0-52.0) % MCV 96.5 H (80-94) fL MCH 29.0 (28.0-34.0) pg MCHC 30.1 (30.0-36.0) g/dL RDW 14.7 (12.1-15.1) % Plt Count 291 (130-400) 10^3/c mm MPV 12.0 H (7.4-10.4) fL Neut % (Auto) 82.9 % Lymph % (Auto) 8.6 % [place] % (Auto) 6.1 % Eos % (Auto) 1.3 % Baso % (Auto) 0.6 % Neut # (Auto) 7.99 H (1.8-7.7) 10^3/u L Lymph # (Auto) 0.8 (0.8-4.8) 10^3/u L [place] # (Auto) 0.6 (0.2-0.9) 10^3/u L Eos # (Auto) 0.1 (0.0-0.8) 10^3/u L Baso # (Auto) 0.1 (0.0-0.1) 10^3/u L Nucleated RBC % (a uto) 0 % Nucleated RBCs # 0.0 /100WBC PT 14.60 H (10.5-13.3) SECO NDS INR 1.11 (0.8-1.2) Sodium 141 (136-145) mmol/L Potassium 4.7 (3.5-5.1) mmol/L Chloride 106 (98-107) mmol/L Carbon Dioxide 24 (22-29) mmol/L Anion Gap 15.7 (5-19) BUN 51 H (8-23) mg/dL Creatinine 2.3 H (0.7-1.2) mg/dL Glucose 201 H (65-115) mg/dL Calculated Osmolal ity 296 H (285-295) mOsm/k g Calcium 9.2 (8.5-10.5) mg/dL Total Bilirubin 0.3 (0.15-1.2) mg/dL AST 20 (0-40) U/L ALT 21 (0-41) U/L Alkaline Phosphata se 79 (40-130) IU/L Total Protein 6.2 L (6.6-8.7) g/dL Albumin 3.8 (3.5-5.2) g/dL Globulin 2.4 (1.3-4.6) g/dL Discharge Plan Discharge Patient Disposition: Home, Self-Care Clinical Impression: Melena, Bright red rectal bleeding Condition: Stable Prescriptions: No Action losartan 100 mg tablet 50 mg PO DAILY RF: 0 furosemide 40 mg tablet 40 mg PO DAILY Qty: 30 RF: 2 potassium chloride 10 mEq capsule, extended release 10 meq PO DAILY Qty: 90 RF: 2 atorvastatin 40 mg tablet 40 mg PO BEDTIME 90 Days Qty: 90 RF: 3 clopidogrel 75 mg tablet 75 mg PO DAILY 90 Days Qty: 90 RF: 3 prednisone 10 mg tablet 20 mg PO DAILY RF: 0 metoprolol succinate 50 mg tablet extended release 24 hr 50 mg PO DAILY RF: 0 aspirin [Aspir-81] 81 mg Tablet,Delayed Release (Dr/Ec) 81 mg PO DAILY RF: 0 tamsulosin 0.4 mg capsule 0.4 mg PO BEDTIME RF: 0 omeprazole 20 mg capsule,delayed release(DR/EC) 20 mg PO DAILY RF: 0 glipizide 5 mg tablet 10 mg PO DAILY RF: 0 vitamin A 1 cap PO DAILY RF: 0 vitamin E 1 cap PO DAILY RF: 0 Levemir FlexTouch U-100 Insuln 100 unit/mL (3 mL) insulin pen 30 unit SUBCUT BID RF: 0 Discharge Orders: Discharge Order (Routine); Ordered 11/28/19 Ordered By: Artie Perez Referrals: Jorge Alberto Mitchell, [Primary Care Provider] - Discharge Diet: As Directed Discharge Activity: Increase activity as tolerated Patient Instructions: Rectal Bleeding (ED) Activity Restrictions/Additional Instructions: Await call from Dr. Culver's office. Continue present medications. Follow-up Dr. Mckay and get a repeat CBC tomorrow. Coding Level of Care Code ED Chemical Engineering Intern for [facility] Fwd Exam Comprehensive
[2019-11-28 09:03] LABS: Basophils # 0.1 10^3/uL (0.0-0.1); Basophils % 0.6 %; Eosinophils # 0.1 10^3/uL (0.0-0.8); Eosinophils % 1.3 %; Hematocrit 35.6 % (42.0-52.0); Hemoglobin 10.7 g/dL (11.7-16.6); Lymphocytes # 0.8 10^3/uL (0.8-4.8); Lymphocytes % 8.6 %; Mean Corpuscular HGB Conc 30.1 g/dL (30.0-36.0); Mean Corpuscular Volume 96.5 fL (80-94); Monocytes # 0.6 10^3/uL (0.2-0.9); Monocytes % 6.1 %; Neutrophils # 7.99 10^3/uL (1.8-7.7); Neutrophils % 82.9 %; Nucleated Red Blood Cells % 0 %; Platelet Count 291 10^3/cmm (130-400); Red Blood Count 3.69 10^6/uL (4.1-5.3); Red Cell Distribution Width 14.7 % (12.1-15.1); White Blood Count 9.7 10^3/uL (4.0-10.0)
[2019-11-28 09:14] VITALS: BP 114/55; PULSE 60; O2SAT 96
[2019-11-28 09:20] LABS: Alanine Aminotransferase 21 U/L (0-41); Albumin Level 3.8 g/dL (3.5-5.2); Alkaline Phosphatase 79 IU/L (40-130); Anion Gap 15.7 (5-19); Aspartate Amino Transferase 20 U/L (0-40); Blood Urea Nitrogen 51 mg/dL (8-23); Calcium 9.2 mg/dL (8.5-10.5); Carbon Dioxide 24 mmol/L (22-29); Chloride 106 mmol/L (98-107); Globulin 2.4 g/dL (1.3-4.6); Glucose 201 mg/dL (65-115); INR 1.11 (0.8-1.2); Osmolality Calculated 296 mOsm/kg (285-295); Potassium 4.7 mmol/L (3.5-5.1); Sodium 141 mmol/L (136-145); Total Bilirubin 0.3 mg/dL (0.15-1.2); Total Protein 6.2 g/dL (6.6-8.7)
--- NOTE | 2019-11-28 09:24 | CT_ITS ---
WS: [id number] CT abdomen and pelvis, noncontrast. HISTORY: melena Contiguous single phase 5 mm axial imaging performed to the abdomen. Oral contrast has not been provi ded. Coronal and sagittal reformats are submitted. All CT scans at [facility] use at leas t one of these dose optimization techniques: automated exposure control; mA and/or kV adjustment per patient size (includes targeted exams where dose is matched to clinical indication); or iterative rec onstruction. CONTRAST: None DLP: 887.55 mGy.cm COMPARISON: 11/11/2018 Lower thorax: Chronic emphysematous changes at the lung bases. No pneumonia. Mild enlargement of the heart chambers. Large hiatal hernia. Liver: Abnormal appearance of the liver. Patient has a known mass in the LEFT hepatic lobe. This mass has increased in size. Predominantly low-attenuation on this unenhanced study with bulging of the he patic capsule and contour. Mass measures 7.3 x 7.7 x 7.9 cm. There are a few additional small adjacen t satellite lesions. Indeterminate for additional 1.6 cm lesion in the superior RIGHT hepatic lobe. N o bile duct dilatation. Gallbladder: Prior cholecystectomy. Pancreas: Normal. Spleen: Small size spleen with granulomata. Adrenals: Normal. Right kidney: Perinephric stranding with mild atrophy and cortical thinning. There are multiple hypod ense masses within the kidney. The largest in the mid kidney measures 1.6 cm. No change. Left kidney: Cortical atrophy and perinephric stranding. Scattered hyper and hypoattenuating cortical lesions. Similar to the prior study. No obstruction. Aorta: Moderate atherosclerosis. No aneurysm. GI tract: No GI tract obstruction. There is moderate diffuse constipation. The appendix is normal. Ex tensive diverticular disease in the descending and sigmoid colon. Colonic wall thickening. No acute d iverticulitis. Mild dilatation of the small bowel loops centered over the pelvis. There is fecalizati on. No adenopathy or free fluid. Abdominal wall: Soft tissue stranding in the abdominal wall from prior injection sites. Visualized osseous structures: Osteopenia. Moderate lumbar spine spondylosis. CT/CT abdomen pelvis wo con [id number] IMPRESSION: 1. Known LEFT hepatic mass is increasing in size. Suspect there are a few sravani tional lesions also throughout the liver. Hepatic mass now measures 7.3 x 7.7 x 7.9 cm. Primary liver cancer versus metastatic disease. May be benign as has o nly moderately increased in size since 11/11/2018. 2. Extensive diverticulosis without diverticulitis. 3. Fecalization distal small bowel suggests long-term mild obstructive process . There is no significant obstruction. 4. Prior cholecystectomy. 5. Large hiatal hernia.
--- NOTE | 2019-11-28 09:33 | PC.NURSE ---
pt to ct by stretcher with tech
[2019-11-28 10:04] VITALS: BP 113/58; BP 88/52; BP 95/49; PULSE 54; PULSE 56; PULSE 64
--- NOTE | 2019-11-28 11:07 | PC.NURSE ---
report received from [facility].
[2019-11-28 11:30] VITALS: BP 94/53; PULSE 65; RESP 16; O2SAT 100
--- NOTE | 2019-11-28 11:40 | PC.NURSE ---
INFORMED PROVIDER MCKVICKERS OF TECHNICIAN AUTOMATED EQUIPMENT OF 94/53 AND OF PAST RECORDED BP OF 91/47 AT 1100, 1003 BP OF 95/49, 1030 BP OF 95/55. LYNNETTE VERBALIZED UNDERSTANDING VO TO CONTINUE WITH DC.
== END 2019-11-28 12:30 | disposition home or self-care (01) ==
PROVIDERS: Emergency Provider Nurse Practitioner Family; PCP Family Medicine
DX: K92.1 Melena (principal); Z79.02 Long term (current) use of antithrombotics/antiplatelets; Z79.82 Long term (current) use of aspirin; I12.9 Hypertensive chronic kidney disease with stage 1 through stage 4 chronic kidney disease, or unspecified chronic kidney disease; E11.22 Type 2 diabetes mellitus with diabetic chronic kidney disease; N18.3 Chronic kidney disease, stage 3 (moderate); Z79.84 Long term (current) use of oral hypoglycemic drugs; Z85.828 Personal history of other malignant neoplasm of skin; I25.10 Atherosclerotic heart disease of native coronary artery without angina pectoris; E78.5 Hyperlipidemia, unspecified; Z87.891 Personal history of nicotine dependence
CPT/HCPCS: 12345; 36415; 74150; 74176; 80053; 82272; 85025; 85610; 99283

== ENCOUNTER 2019-12-20 09:29 | Outpatient (RCR) | payer MEDICARE, BC, SELFPAY | END 2020-01-08 23:59 | disposition home or self-care (01) | LOC: CR 09:29 | PROVIDERS: PCP Family Medicine; Referring Provider Internal Medicine Cardiovascular Disease; Visit Provider Radiology Radiation Oncology | DX: Z95.5 Presence of coronary angioplasty implant and graft (principal) | CPT/HCPCS: 93798 ==

== ENCOUNTER 2019-12-20 09:41 | Outpatient (CLI) | payer MEDICARE, BC, SELFPAY ==
--- NOTE | 2019-12-20 09:51 | CT_ITS ---
WS: [id number] CT scan of the neck. Additional two-dimensional coronal and sagittal reconstruction was performed. 04/2020 Clinical Data: SQUAMOUS CELL CARCINOMA OF SKIN OF SCALP AND NECK Comparison: CT neck, 06/21/2019. DLP: 2582.[address] scans at [facility] use at least one of these dose optimization techniques: automat ed exposure control; mA and/or kV adjustment per patient size (includes targeted exams where dose is matched to clinical indication); or iterative reconstruction. Findings: No lymphadenopathy is noted. The salivary glands are unremarkable. There is no prevertebral soft tiss ue swelling. The larynx is symmetric. The thyroid gland is normal. The floor of the mouth and parapha ryngeal spaces are normal. The oral cavity is unremarkable. The cervical vertebral bodies show unchanged osteoarthritis with degenerative disc narrowing. The melvi g apices are unchanged. No prevertebral soft tissue swelling is seen. The lung apices show no abnorma lities. No erosion of the skull or skull base is noted. CT/CT neck wo con [id number] Impression: No change in CT neck from previous study.
[2019-12-20 10:58] LABS: Blood Urea Nitrogen 45 mg/dL (8-23)
== END 2019-12-20 09:42 | disposition home or self-care (01) ==
PROVIDERS: Family Provider Family Medicine; PCP Family Medicine; Visit Provider Radiology Radiation Oncology
DX: C44.42 Squamous cell carcinoma of skin of scalp and neck (principal)
CPT/HCPCS: 70490; 82565; 84520

== ENCOUNTER 2019-12-21 09:44 | Outpatient (CLI) | payer MEDICARE, BC, SELFPAY ==
--- NOTE | 2019-12-21 12:01 | ONCRAD EPV_ITS ---
Radiation Oncology Established Patient Visit Patient: Reji Morgan [id number] : 1935> Age: 84> Sex: Male> Dictated by: Dr. Justin Seaman Date of Service: 12/21/2019 Referring Physician(s) : Dean Sam M.D. Diagnosis: C44.42 - Squamous cell carcinoma of skin of scalp and neck, Diagnosed 09/17/2016 (Active) Radiotherapy to Date: Course: C1, Treatment Site: Frontal Scalp, Ref. ID: SCALP, Energy: 9E, Dose/Fx (cGy): 275, #Fx: 20 / 20, Dose Correction (cGy): 0, Total Dose (cGy): 5,500, Start Date: 09/23/2016, End Date: 10/23/2016, Elapsed Days: 30 Treatment Site: LT EAR 55GY, Ref. ID: LT EAR, Energy: 9E, Dose/Fx (cGy): 275, #Fx: 20 / 20, Dose Correction (cGy): 0, Total Dose (cGy): 5,500, Start Date: 09/23/2016, End Date: 10/23/2016, Elapsed Days: 30 Treatment Site: R Face Parotid Lymph Node 5500/20, Ref. 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 He was last treated with radiation in 2017 and his most recent CT of the neck (12/20/2019 versus 06/21/2019) revealed no evidence of disease recurrence or cervical lymphadenopathy. Since the patient was last seen in June 2019, he reports having experienced a myocardial infarction necessitating 3 cardiac stents, and he is also had recurrence on his scalp which was treated with Mohs surgery at [facility] on July 14, 2019. Medical records are currently not available to me, and they have been requested. The patient is seen today in follow-up and he reports no new problems. He is scheduled to see his surgeon in the next few weeks, as well as follow-up with his battery container tester. Current Medications: Aspirin Low Dose, atorvastatin Calcium, cholecalciferol, clopidogrel Bisulfate, furosemide, glipiZIDE, levemir, losartan Potassium, metoprolol Succinate ER, pantoprazole Sodium, predniSONE, tamsulosin HCl, vitamin A. Allergies: No Known Allergies Current Complaints / Review of Systems: Constitutional - Complains of mild fatigue With activity. Denies lack of appetite, fever, night sweats, rigors / chills and change in weight. Eyes - Denies blurred vision Wears glasses. ENMT - Denies dysphagia, ear pain, epistaxis, problems with hearing, mouth dryness, oral bleeding, sputum production, stomatitis, altered taste and tinnitus. Neck - Denies neck masses, neck pain, decreased range of motion and swelling of the neck. Integumentary - Complains of bruising Bruises easily, taking Plavix 75mg daily.. Complains of mildly dry skin. Denies rash. Cardiovascular - Complains of edema Edema of the feet and ankles, managed with Furosimide 20mg daily.. Denies arrhythmias, chest pain Denies chest pains since recent heart attack 1 month ago with [address] Rivas at [facility] dyspnea and palpitations. Respiratory - Complains of moderate dyspnea associated with normal activity. Denies cough, hemoptysis, pleuritic chest pain and wheezing. Gastrointestinal - Denies abdominal pain, change in bowel habits, constipation, diarrhea, heartburn / dyspepsia Takes Protonix., hematochezia, hemorrhoids, melena / GI bleeding, nausea, pain / cramping and vomiting. Genitourinary (M) - Denies dysuria, frequency, hematuria, incontinence, nocturia, urgency and urine color change. Musculoskeletal - Complains of joint pain Reports, normal old age arthritis. and muscle weakness Arms are weak, stable.. Denies bone pain and decreased range of motion. Neurologic - Complains of intermittent dizziness when getting up too quickly.. Denies disorientation, abnormal gait, headaches, insomnia, motor weakness, sensory problems and stroke. Endocrine - Complains of Type 2 diabetes which is controlled with medication.. Vital Signs: Performed on 12/21/2019 9:58 AM BMI - 27.349 kg/m2 (high), Height - 69.00 in, Weight - 185.2 lbs, Temperature - 97.6 f, Pulse - 67, Respiration - 18, O2 Sat - 95 % (low), Pain - 0, Fatigue - 2 and BP - 133/ 68 mm(hg). Physical Exam: General: Alert and oriented x 3. No acute distress. HEENT: Multiple surgical scars are seen on the patient's scalp. The patient has a healing eschar on the left parietal occipital scalp measuring approximately 4 mm in diameter. There is no physical exam findings consistent with disease recurrence at this time. Extraocular Movements Intact: Pupils Equal, Round, Reactive to Light and Accommodation: Sclerae anicteric. Oral cavity is clear without lesions, masses or ulcers. NECK: Supple without supraclavicular or jugular lymphadenopathy. LUNGS: Clear to auscultation bilaterally without rales, rhonchi or wheeze. HEART: Regular rate and rhythm, normal S1 and S2 without murmur, gallop or rub. MUSCULOSKELETAL: No tenderness or percussion pain over the axial skeleton, scapulae or pelvis. ABDOMEN: Soft, nontender, nondistended without masses or organomegaly. Bowell sounds are present. EXTREMITIES: No peripheral edema is identified. Limited motor and sensory examination are grossly intact and symmetric bilaterally. NEUROLOGIC: Cranial nerves II ???XII are grossly intact. Normal sensation, strength 5/5 in all extremities, normal gait, no ataxia. Performance Status: 1 - No physically strenuous activity, but ambulatory and able to carry out light or sedentary work (e.g. office work, light house work). (ECOG) Lab: None pending. Pathology: Primary, c44.42 - squamous cell carcinoma of skin of scalp and neck, Diagnosed 09/17/2016 (active). 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 Medical records and pathology reports are currently not available to me, and these have been requested. The patient has no clinical or radiographic evidence of disease recurrence at this time. I plan to see the patient back in 1 year, and in the interim, he will be seen by his surgeon, and battery container tester. There is little utility in repeating a CT of the neck unless there is a clinical indication to do so. Signed by: 12/21/2019 11:59:45 AM <<Signature on File>> Time spent with patient: CPT Code: CPT Code:
== END 2019-12-21 09:45 | disposition home or self-care (01) ==
LOC: ONCMED 09:48
PROVIDERS: PCP Family Medicine; Visit Provider Radiology Radiation Oncology
DX: Z08 Encounter for follow-up examination after completed treatment for malignant neoplasm (principal); Z85.828 Personal history of other malignant neoplasm of skin; Z92.3 Personal history of irradiation
CPT/HCPCS: 99213

== ENCOUNTER 2020-01-09 13:39 | Outpatient (RCR) | payer MEDICARE, BC, SELFPAY | END 2020-02-07 23:59 | disposition home or self-care (01) | LOC: CR 13:39 | PROVIDERS: PCP Family Medicine; Referring Provider Internal Medicine Cardiovascular Disease; Visit Provider Radiology Radiation Oncology | DX: Z95.5 Presence of coronary angioplasty implant and graft (principal) | CPT/HCPCS: 93798 ==

== ENCOUNTER → 2020-01-10 10:59 | Outpatient (BNVA) | payer MEDICARE, BC, SELFPAY | PROVIDERS: PCP Family Medicine; Visit Provider Internal Medicine Cardiovascular Disease | DX: I50.33 Acute on chronic diastolic (congestive) heart failure (principal) | CPT/HCPCS: 80048; 83735; 83880 ==

== ENCOUNTER 2020-01-20 08:39 | Observation (INO) | payer MEDICARE, BC, SELFPAY ==
[2020-01-19 12:16] LABS: Basophils # 0.1 10^3/uL (0.0-0.1); Basophils % 0.5 %; Eosinophils % 0.3 %; Hematocrit 26.9 % (42.0-52.0); Hemoglobin 7.3 g/dL (11.7-16.6); Lymphocytes # 0.4 10^3/uL (0.8-4.8); Lymphocytes % 3.7 %; Mean Corpuscular HGB Conc 27.1 g/dL (30.0-36.0); Mean Corpuscular Hemoglobin 22.8 pg (28.0-34.0); Mean Corpuscular Volume 84.1 fL (80-94); Mean Platelet Volume 11.2 fL (7.4-10.4); Monocytes # 0.3 10^3/uL (0.2-0.9); Monocytes % 2.7 %; Neutrophils # 10.04 10^3/uL (1.8-7.7); Neutrophils % 92.2 %; Nucleated Red Blood Cells % 0.4 %; Platelet Count 564 10^3/cmm (130-400); Red Cell Distribution Width 16.5 % (12.1-15.1); White Blood Count 10.9 10^3/uL (4.0-10.0)
[2020-01-19 12:47] LABS: Tumor Marker Alpha Fetoprotein 338.1 ng/mL (0-8.3)
[2020-01-19 12:58] LABS: Alanine Aminotransferase 24 U/L (0-41); Albumin Level 3.9 g/dL (3.5-5.2); Alkaline Phosphatase 106 IU/L (40-130); Anion Gap 17.4 (5-19); Aspartate Amino Transferase 26 U/L (0-40); Blood Urea Nitrogen 34 mg/dL (8-23); Calcium 9.2 mg/dL (8.5-10.5); Carbon Dioxide 25 mmol/L (22-29); Chloride 104 mmol/L (98-107); Globulin 2.8 g/dL (1.3-4.6); Glucose 97 mg/dL (65-115); Lactate Dehydrogenase 245 U/L (135-225); Osmolality Calculated 291 mOsm/kg (285-295); Potassium 4.4 mmol/L (3.5-5.1); Sodium 142 mmol/L (136-145); Total Bilirubin 0.3 mg/dL (0.15-1.2); Total Protein 6.7 g/dL (6.6-8.7)
[2020-01-19 13:29] LABS: Folate Level 12.4 ng/mL (4.5-32.2)
[2020-01-19 13:41] LABS: Vitamin B12 931 pg/mL (232-1245)
[2020-01-19 13:52] LABS: Iron 13 ug/dL (59-158); Percent Saturation 3.2 % (20-50); Total Iron Binding Capacity 398 mcg/dl; Unsaturated Iron Binding 385 ug/dL (112-347)
[2020-01-19 14:03] LABS: Slide Review Slide Review Perform
--- NOTE | 2020-01-19 15:09 | ONC CON_ITS ---
Dr. Blake New Patient Note Patient: Eddie Mendoza Unit #: [id number]: 1935 Dicatated By: Sinan Blake M.D.Date of Visit: Jan 19, 2020 Onc MED New Patient/Consult Referring Physician: Dean Sam Chief Complaint: Anemia. History of Present Illness: This is an 84-year-old man with a moderately severe anemia. He has multiple medical illnesses including hypertension, hyperlipidemia, type 2 diabetes, and chronic kidney disease. In 2016 he underwent radiation for recurrent squamous cell skin cancer which was involving the left frontal scalp and a left inferior frontal scalp lymph node, as well as suspected involvement in the right parotid lymph node. To date he has had no further recurrence of the skin cancer. However, on 10/23/2019 he was admitted to the hospital with acute non-ST elevation myocardial infarction for which he underwent coronary angioplasty/stent placement on 10/24/2019. He recovered uneventfully, but in November he was seen in the emergency room with several episodes of bright red rectal bleeding. His CBC at that time showed mild anemia with hemoglobin 10.7 g. The red cell indices were borderline macrocytic. The liver enzymes were normal. His CT abdomen/pelvis showed extensive diverticulosis without evidence for acute diverticulitis. Fecalization within the distal small bowel suggestive of long-term mild obstructive process. There were no other acute findings. However, there was evidence of a mass within the left hepatic lobe measuring 7.3 x 7.7 x 7.9 cm which had increased slightly in size compared to previous study from November 2018. A few additional small adjacent satellite lesions were noted. He had seen Dr. Medeiros in the office on 12/19/2019. At that point he had no evidence for active bleeding and as he had undergone colonoscopy by Dr. Cartgaena in 2019, it was opted to manage him conservatively. On an outpatient follow-up visit with Dr. Mitchell on 12/28/2019 his repeat CBC showed a significant decline in his hemoglobin to 7.3 g with hematocrit 24.7%. The red cell indices were normal. The white blood cell count was 10,500 and the platelet count was 382,000. His comprehensive metabolic profile showed elevated BUN and creatinine at 48 and 2.32 mg/dL, similar to previous studies. The liver enzymes were normal and the total bilirubin was normal at 0.4 mg/dL. He is seen now in regard to the anemia. He complains that he has no energy and that he is short of breath with any activity. 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 His ECOG score is 1. He has good appetite. His weight is down about 10 pounds over the past year. He does not have fever or night sweats. He does complain that he has shortness of breath all the time, but it is worse with activity. He also complains of having pain across his shoulders with the shortness of breath. He is not having any actual chest pain. He is on CPAP at night. He does not complain of cough. He currently has no GI complaints. His bowels function is normal, and he has had no further rectal bleeding. He does have frequent urination with his diuretic. He complains that his hands and feet hurt, and he also has pain in his hips with walking. He does not complain of headache. He has lightheadedness if he gets up too fast. He has numbness/tingling in his hands and feet, and he also complains that the tips of his fingers feel cold. Past Medical History: His medical history includes chronic kidney disease, coronary artery disease, gastroesophageal reflux disease, hyperlipidemia, hypertension, temporal arteritis, and type II diabetes. He has a history of squamous cell skin cancer. Past Surgical History: His surgical/procedural history includes bilateral cataract excisions, cholecystectomy, coronary angioplasty/stent placement in 2019, biopsy of left frontal scalp nodules in 2016, excision of left frontal scalp squamous cell skin cancer in 2015, and colonoscopy in 2001. Medications: Aspirin Low Dose 1 Tablet (of 81 mg) Oral daily, Atorvastatin Calcium 1 Tablet (of 40 mg) Oral at bedtime, B-12 1 Tablet (of 100 mcg) Oral daily, Cholecalciferol 1 (100 mcg ) Tablet Oral daily, Clopidogrel Bisulfate 1 Tablet (of 75 mg) Oral daily, Furosemide 1 Tablet (of 20 mg) Oral every am, glipiZIDE 1 Tablet (of 5 mg) Oral b.i.d., Levemir 30 Units (of 60 Units/mL) Subcutaneous b.i.d., Losartan Potassium 1 Tablet (of 50 mg) Oral daily, Metoprolol Succinate ER 1 Tablet (of 50 mg) Tablet SR 24 HR Oral daily, Pantoprazole Sodium 1 Tablet (of 40 mg) Tablet, enteric coated Oral b.i.d., PredniSONE 1 Tablet (of 20 mg) Oral daily, Tamsulosin HCl 1 (0.4 mg) Capsule Oral daily, Vitamin A 1 (2400 mcg) Capsule Oral daily Allergies: No Known Allergies. Social History: Mr. Mendoza is and he is retired. He has a history of smoking 1 pack of cigarettes daily for approximately 20 years. He quit smoking somewhere in the range of 40 years ago. He had some alcohol use while he was in the service, but none since then. Family History: Father at age 72, cause unknown to the patient. His mother had breast cancer and uterine cancer. She at age 84, apparently of heart attack. A brother of stomach cancer. Another brother has been treated for prostate cancer, and a sister has been treated for breast cancer. His other sister has diabetes. Review Of Symptoms: Constitutional - He complains that he has no energy and that he gets short of breath with any activity. 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 Appetite is still good. He has had a weight loss of 10 pounds over the past year. He has no fever or night sweats. His ECOG score is 1, Eyes - No change in vision, ENMT - No hearing loss or tinnitus. No sinus congestion/drainage. No mouth sores. No sore throat or difficulty swallowing, Hematologic/Lymphatic - He has easy bruising, Respiratory - He has some shortness of breath all the time. It is worse with activity. He is on CPAP at night. No cough. No pleuritic pain or hemoptysis, Cardiovascular - He had some pain across his shoulders when he is short of breath. He does not complain of chest pain. No palpitations, Gastrointestinal - No nausea or vomiting. No heartburn or acid reflux. No diarrhea or constipation. He had several episodes of bright red rectal bleeding in November. He has had none since then, Genitourinary (M) - No dysuria or hematuria. He urinary frequency with his diuretic. No urgency or incontinence, Musculoskeletal - He complains that his hands and feet hurt and he also has pain in his hips when he is walking, Integumentary - He has had multiple skin cancers. He has no skin rash, Neurologic - No headache. He has lightheadedness if he gets up too fast. He has numbness/tingling in his hands and feet. He complains that the tips of his fingers get cold, Psychiatric - No anxiety or depression. No insomnia. Vital Signs: Performed on Jan 19, 2020 10:06: 0, 26.67, 1.98 sq.m, 69.00 in, 99 %, 59 /min (LOW), 16 /min, 134/55 mm(hg), 97.4 F (LOW), 180.6 lbs (LOW), and Performed on Dec 21, 2019 09:58: 2. Physical Examination: Constitutional - He appears somewhat weak generally, but not acutely ill, Eyes - Sclerae nonicteric. Conjunctivae clear, ENMT - No lesions noted in the oral cavity, Neck - No mass or thyromegaly, Hematologic/Lymphatic - No cervical, clavicular, or axillary adenopathy, Respiratory - Lungs are clear with good air movement bilaterally, Cardiovascular - Heart rhythm is regular. There is a II/ systolic murmur. There is no gallop or rub noted, Abdomen - Soft and non-tender. Liver and spleen are not enlarged. There is no abdominal mass or ascites noted and there is no inguinal adenopathy, Back/Spine - No spine or CVA tenderness noted, Extremities - There is mild edema at the ankles. I am not able to palpate pedal pulses. He does have good radial pulses bilaterally. There is chronic purpura on the arms, Integumentary - No rashes. There are several actinic lesions on the scalp and upper chest, Neurologic - No focal neurologic deficits noted. Impression: 1. Patient with moderately severe anemia. Etiology is uncertain, but with the history of recent rectal bleeding, iron deficiency obviously needs to be excluded. He is clearly symptomatic with it. 2. He has undergone radiation for recurrent squamous cell skin cancer of the left frontal scalp. Thus far there has been no evidence for further recurrence of the squamous cell cancer. 3. He has a fairly large mass in the left lobe of the liver. It has increased only slightly over the past year, but it was reported to have been new compared to his PET/CT in 2017. As such, the finding is suspicious for slowly progressive malignant or infectious process. His other medical illnesses include: 4. Hypertension. 5. Hyperlipidemia. 6. Type 2 diabetes. 7. Chronic kidney disease, stage IV. 8. Coronary artery disease with recent non-ST elevation myocardial infarction and coronary angioplasty/stent placement. 9. GERD. 10. Temporal arteritis, on long-term steroid therapy. Plan: The laboratory and CT findings were reviewed with the patient and we discussed the clinical implications. He will have additional laboratory studies today to include CBC, comprehensive metabolic profile, reticulocyte count, LDH level, haptoglobin level, serum iron studies, B12 and folate levels, serum protein electrophoresis, and serum free light chain assay. If there is evidence of iron deficiency, he will first be given a trial of oral iron supplementation. However, given the severity of his symptoms and his known coronary disease, if his hemoglobin remains below 8 g I will plan to arrange for PRBC transfusion. In the meantime, I also will plan to review the CT scans with the radiologist to help determine appropriate management for the liver mass. Signed By: Sinan Blake M.D. <<Signature on File>>
[2020-01-20] VITALS (10 sets, daily range): BP systolic 126–152; BP diastolic 71–81; PULSE 70–79; RESP 16–18; TEMP 36.4–37.1; O2SAT 97–100
[2020-01-20] MEDS: diphenhydrAMINE 25 mg Capsule PO (10:45)
[2020-01-20] MEDS: acetaminophen 325 mg Tablet 650 MG PO (10:45)
[2020-01-20 10:47] LABS: PROTEIN, TOTAL 6.1 g/dL (6.1-8.1)
--- NOTE | 2020-01-20 13:55 | PC.CHAP ---
Pastoral Care Encounter/Spiritual Assessment Type of Contact [] Declined bench press operator visit [] Patient/Family/Request visit [] Outpatient visit [] Follow-up visit [] Physician referral [] Code/Alert [X] Routine visit [] Staff referral [] Actively dying [] Patient sleeping [] Family support [] [] Out of room [] Palliative care [] [] Receiving care in room [] Pre-surgical visit [] Trauma [] Long length of stay [] ICU visit [] Other: Relational/Emotional Strength [] Patient feels connected with others/family/visitors/staff [] Distress [] Loneliness/isolation [] Abandonment Spirituality of Patient [] Person of Deena [] Attends Jew of their Deena [] Believes in Prayer [] Reads Bible or Samaritan materials [] There are Spiritual issues to be addressed Graphic Engineer Interventions [] Prayer [] Active listening [] Non-anxious presence [] Spiritual/emotional support [] Crisis/trauma care [] Spiritual counseling [] Bereavement support [] Provided bereavement packet [] Provided Bible/devotional materials [] Provided toy/stuffed animal, coloring book to patient or family member [] Provided Communion [] Anointing/[place] [] Salvation [] Completed spiritual assessment [] Other: Impact on Illness or Injury [] Angry [] Fearful [] Anxious [] Often cries [] Exhaustion [] Unable to work [] Unable to attend confucianism [] Unable to walk/stand [] Unable to read [] Unable to drive [] Unable to eat/drink [] Unable to sleep [] Unable to be with family [] Patient intubated [] Other: Summary Time spent with patient
[2020-01-20] MEDS: FUROsemide 10 mg/mL SDV 2mL 20 MG IVP (14:16)
[2020-01-22 14:46] LABS: ALBUMIN 3.2 g/dL (3.8-4.8); ALPHA 1 GLOBULIN 0.5 g/dL (0.2-0.3); ALPHA 2 GLOBULIN 1.1 g/dL (0.5-0.9); BETA 1 GLOBULIN 0.6 g/dL (0.4-0.6); BETA 2 GLOBULIN 0.3 g/dL (0.2-0.5); GAMMA GLOBULIN 0.4 g/dL (0.8-1.7)
[2020-01-22 16:43] LABS: KAPPA LIGHT CHAIN, FREE, SERUM 45.2 mg/L (3.3-19.4); KAPPA/LAMBDA LIGHT CHAINS FREE 1.41 (0.26-1.65)
== END 2020-01-20 16:48 | disposition home or self-care (01) ==
LOC: MEDSURG 08:45
PROVIDERS: Admitting Provider Internal Medicine Medical Oncology; PCP Family Medicine; Visit Provider Internal Medicine Medical Oncology
DX: D64.9 Anemia, unspecified (principal); I10 Essential (primary) hypertension; K76.9 Liver disease, unspecified; E78.5 Hyperlipidemia, unspecified; I12.9 Hypertensive chronic kidney disease with stage 1 through stage 4 chronic kidney disease, or unspecified chronic kidney disease; E11.22 Type 2 diabetes mellitus with diabetic chronic kidney disease; N18.4 Chronic kidney disease, stage 4 (severe); I25.10 Atherosclerotic heart disease of native coronary artery without angina pectoris; I25.2 Old myocardial infarction; K21.9 Gastro-esophageal reflux disease without esophagitis; Z95.5 Presence of coronary angioplasty implant and graft; Z99.89 Dependence on other enabling machines and devices; Z79.84 Long term (current) use of oral hypoglycemic drugs; F17.210 Nicotine dependence, cigarettes, uncomplicated; Z85.828 Personal history of other malignant neoplasm of skin; Z92.3 Personal history of irradiation
CPT/HCPCS: 36415; 36430; 80053; 82105; 82378; 82607; 82746; 83010; 83540; 83550; 83615; 83883; 84155; 84165; 85025; 85045; 86850; 86900; 86920; 96375; 99215; G0378; J1940; P9016

== ENCOUNTER → 2020-01-31 10:40 | Outpatient (BNVA) | payer MEDICARE, BC, SELFPAY | PROVIDERS: PCP Family Medicine; Visit Provider Internal Medicine Cardiovascular Disease | DX: I50.33 Acute on chronic diastolic (congestive) heart failure (principal); I11.0 Hypertensive heart disease with heart failure | CPT/HCPCS: 80048; 83735; 83880; 85025 ==

== ENCOUNTER 2020-02-05 09:59 | Outpatient (CLI) | payer MEDICARE, BC, SELFPAY ==
[2020-02-05 10:29] LABS: Basophils # 0.1 10^3/uL (0.0-0.1); Basophils % 0.7 %; Eosinophils # 0.1 10^3/uL (0.0-0.8); Eosinophils % 0.8 %; Hematocrit 38.9 % (42.0-52.0); Lymphocytes # 0.4 10^3/uL (0.8-4.8); Lymphocytes % 3.4 %; Mean Corpuscular HGB Conc 28.3 g/dL (30.0-36.0); Mean Corpuscular Hemoglobin 25.3 pg (28.0-34.0); Mean Corpuscular Volume 89.4 fL (80-94); Monocytes # 0.4 10^3/uL (0.2-0.9); Monocytes % 3.2 %; Neutrophils % 91.3 %; Nucleated Red Blood Cells % 0 %; Platelet Count 339 10^3/cmm (130-400); Red Blood Count 4.35 10^6/uL (4.1-5.3); Red Cell Distribution Width 20.7 % (12.1-15.1); White Blood Count 11.4 10^3/uL (4.0-10.0)
[2020-02-05 10:46] LABS: Iron 41 ug/dL (59-158); Percent Saturation 12.1 % (20-50); Total Iron Binding Capacity 338 mcg/dl; Unsaturated Iron Binding 297 ug/dL (112-347)
[2020-02-08 09:51] LABS: Tumor Marker Alpha Fetoprotein 525.4 ng/mL (0-8.3)
== END 2020-02-05 10:00 | disposition home or self-care (01) ==
LOC: ONCMED 10:03
PROVIDERS: PCP Family Medicine; Visit Provider Internal Medicine Medical Oncology
DX: D64.9 Anemia, unspecified (principal); R16.0 Hepatomegaly, not elsewhere classified; K92.2 Gastrointestinal hemorrhage, unspecified; C44.42 Squamous cell carcinoma of skin of scalp and neck
CPT/HCPCS: 36415; 82105; 83540; 83550; 85025

== ENCOUNTER 2020-02-09 08:31 | Outpatient (RCR) | payer MEDICARE, BC, SELFPAY | END 2020-03-09 23:59 | disposition home or self-care (01) | LOC: CR 08:31 | PROVIDERS: PCP Family Medicine; Referring Provider Internal Medicine Cardiovascular Disease; Visit Provider Radiology Radiation Oncology | DX: Z95.5 Presence of coronary angioplasty implant and graft (principal) | CPT/HCPCS: 93798 ==

== ENCOUNTER 2020-02-21 07:31 | Day surgery (SDC) | payer MEDICARE, BC, SELFPAY ==
[2020-02-21] VITALS (12 sets, daily range): BP systolic 125–154; BP diastolic 62–82; PULSE 64–71; RESP 18; TEMP 36.2; O2SAT 18–100
[2020-02-21 08:18] LABS: Glucose Point of Care 113 mg/dL (70-110)
--- NOTE | 2020-02-21 08:20 | US_ITS ---
WS: [id number] ULTRASOUND-GUIDED LIVER BIOPSY HISTORY: liver mass Procedure, risks, and complications have been explained to the patient. Consent is obtained. Prior imaging studies are reviewed. Skin is cleansed with ChloraPrep and then anesthetized with 1% buffered lidocaine. Core biopsy is per formed with 18 and 20 gauge Achieve needles. Specimen is placed within formalin. No complications enc ountered. Initial biopsy performed with a 20-gauge needle due to the increased vascularity of the lesion. Addit ional 18-gauge biopsies were performed after the patient tolerated the prior smaller biopsies with no complications or bleeding. Patient tolerated this examination very well. There are no postoperative complications. Patient will be observed for 2 hours postprocedure. US/US biopsy liver [id number] IMPRESSION: Uncomplicated liver biopsy of the large mass in the LEFT hepatic lobe. Specimen placed in formalin for pathology purposes.
[2020-02-21] MEDS: sodium chloride 0.9% 1,000 ML 30 ML IV (08:56)
[2020-02-21 08:57] LABS: INR 0.97 (0.8-1.2)
[2020-02-21] MEDS: fentaNYL 50 mcg/mL INJ 2mL 25 MCG IVP (09:32)
[2020-02-21] MEDS: midazolam 1 mg/mL INJ 2 mL IVP (09:33)
--- NOTE | 2020-02-21 09:55 | SUR.OPER ---
0948 Liver biopsy collected per Dr. Kaufman. [facility] Edilson to put in orders.
--- NOTE | 2020-02-21 11:06 | SUR.PHASEII ---
1100 Pt without pain. VSS. Dressing to biopsy site dry and intact. Pt allowed to have water per Dr. Conley instructions. Will continue to monitor.
== END 2020-02-21 12:01 | disposition home or self-care (01) ==
PROVIDERS: Radiology Diagnostic Radiology; PCP Family Medicine; Visit Provider Internal Medicine Medical Oncology
DX: R16.0 Hepatomegaly, not elsewhere classified (principal)
CPT/HCPCS: 36415; 36416; 47000; 76942; 82962; 85610; 88307; 96374; 96375; J2250; J3010; J7030

== ENCOUNTER 2020-03-08 06:01 | Outpatient (CLI) | payer MEDICARE, BC, SELFPAY ==
--- NOTE | 2020-03-08 14:56 | ONC FU_ITS ---
Dr. Blake Patient Follow-Up Note Patient: Eddie Mendoza Unit #: [id number]: 1935 Dicatated By: Sinan Blake M.D.Date of Visit:Mar 08, 2020 Onc Med Follow-up/Prog Note Chief Complaint: Hepatocellular carcinoma. History of Present Illness: This is an 84-year-old man whom I had seen initially in regard to a moderately severe anemia. And how has been from confirmed to have hepatocellular carcinoma. He has multiple medical illnesses including hypertension, hyperlipidemia, type 2 diabetes, and chronic kidney disease. In 2016 he underwent radiation for recurrent squamous cell skin cancer which was involving the left frontal scalp and a left inferior frontal scalp lymph node, as well as suspected involvement in the right parotid lymph node. To date he has had no further recurrence of the skin cancer. On 10/23/2019 he was admitted to the hospital with acute non-ST elevation myocardial infarction for which he underwent coronary angioplasty/stent placement on 10/24/2019. He recovered uneventfully, but in November 2019 he was seen in the emergency room with several episodes of bright red rectal bleeding. His CBC at that time showed mild anemia with hemoglobin 10.7 g. The red cell indices were borderline macrocytic. The liver enzymes were normal. His CT abdomen/pelvis showed extensive diverticulosis without evidence for acute diverticulitis. Fecalization within the distal small bowel suggestive of long-term mild obstructive process. There were no other acute findings. However, there was evidence of a mass within the left hepatic lobe measuring 7.3 x 7.7 x 7.9 cm which had increased slightly in size compared to previous study from November 2018. A few additional small adjacent satellite lesions were noted. He had seen Dr. Medeiros in the office on 12/19/2019. At that point he had no evidence for active bleeding and as he had undergone colonoscopy by Dr. Cartagena in 2019, it was opted to manage him conservatively. On an outpatient follow-up visit with Dr. Mitchell on 12/28/2019 his repeat CBC showed a significant decline in his hemoglobin to 7.3 g with hematocrit 24.7%. The red cell indices were normal. The white blood cell count was 10,500 and the platelet count was 382,000. His comprehensive metabolic profile showed elevated BUN and creatinine at 48 and 2.32 mg/dL, similar to previous studies. The liver enzymes were normal and the total bilirubin was normal at 0.4 mg/dL. I had seen him initially on 01/19/2020. He began on oral iron supplementation. A repeat CBC on 02/05/2020 showed increase in the hemoglobin to 11.0 g, and with that improvement, he had just continued on oral iron replacement. In the meantime, on 02/03/2020 he had further evaluation with PET/CT. It showed an FDG avid left hepatic lobe mass measuring 10.1 x 5.8 cm, SUV 5.9. It was noted to have a typical appearance for hepatoma. A second similar lesion in the right hepatic dome measuring 3.0 cm, also with increased FDG uptake. A 2 cm hypodensity in segment 4a was felt to most likely represent a cyst or hemangioma. There were no other areas of abnormal uptake. On 02/21/2020 underwent ultrasound guided biopsy of the left hepatic lobe mass. 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 IHC showed positive staining to hepatocyte, CK Steven, and CK20. CK 5/6 was focally positive. CK7 was negative in tumor cells but positive and bile ducts showing proliferation. He is seen for a follow-up visit. He says he is feeling pretty good generally. He does have limited activity, but he is doing all the housework and he is caring for his . He has good appetite. His weight is stable. He has no fever or night sweats. He has shortness of breath with activity. He does not complain of cough and he has not been having chest pain. He has no GI or complaints. He has joint pain, mainly in the left shoulder and in his fingers. He has some numbness in his fingertips. He has no other focal neurologic symptoms. Medications: Aspirin Low Dose 1 Tablet (of 81 mg) Oral daily, Atorvastatin Calcium 1 Tablet (of 40 mg) Oral at bedtime, B-12 1 Tablet (of 100 mcg) Oral daily, Cholecalciferol 1 (100 mcg ) Tablet Oral daily, Clopidogrel Bisulfate 1 Tablet (of 75 mg) Oral daily, Ferrous Sulfate 2 Tablet (of 325 (65 fe) mg) Oral daily, Furosemide 1 Tablet (of 20 mg) Oral every am, glipiZIDE 2 Tablet (of 5 mg) Oral every am, Levemir 30 Units (of 60 Units/mL) Subcutaneous b.i.d., Metoprolol Succinate ER 1 Tablet (of 50 mg) Tablet SR 24 HR Oral daily, Pantoprazole Sodium 1 Tablet (of 40 mg) Tablet, enteric coated Oral b.i.d., PredniSONE 1 Tablet (of 20 mg) Oral daily, Tamsulosin HCl 1 (0.4 mg) Capsule Oral daily, Vitamin A 1 (2400 mcg) Capsule Oral daily Allergies: No Known Allergies. Review of Systems: Constitutional - He has been feeling generally. He does have limited activity tolerance, but he does all the housework and he cares for his . Appetite is good and weight is stable. No fever, night sweats, or hot flashes. ECOG score is 1, ENMT - No sinus congestion/drainage. No mouth sores. No sore throat or difficulty swallowing, Hematologic/Lymphatic - He has easy bruising, Respiratory - He has shortness of breath with activity. No cough. No pleuritic pain or hemoptysis, Cardiovascular - No angina pain. No palpitations, Gastrointestinal - No nausea or vomiting. No heartburn or acid reflux. No diarrhea or constipation. No blood in the stool or black stools, Genitourinary (M) - No dysuria or hematuria. No urinary frequency. No urgency or incontinence, Musculoskeletal - He has some joint pain, mainly in the left shoulder and in his fingers, Integumentary - He has had a recent excision of a basal cell skin cancer from the upper chest area, Neurologic - No headache or dizziness. He has some numbness in his fingertips. No other focal neurologic symptoms, Psychiatric - No anxiety or depression. No insomnia. Vital Signs: Performed on Mar 08, 2020 10:00 Height - 69.00 in Weight - 181.0 lbs (HIGH) BSA - 1.98 sq.m BMI - 26.73 Temperature - 97.6 F (LOW) Pulse - 77 /min Respiration - 18 /min BP - 146/77 mm(hg) (HIGH) O2 Sat - 99 % Pain - 0 Physical Examination: Constitutional - He appears somewhat weak generally, Eyes - Sclerae nonicteric. Conjunctivae clear, ENMT - No lesions noted in the oral cavity, Hematologic/Lymphatic - No cervical, clavicular, or axillary adenopathy, Respiratory - Lungs are clear with good air movement bilaterally, Cardiovascular - Heart rhythm is regular with some premature beats. There is no murmur, gallop, or rub noted, Chest - There is erythema and induration at the site of the skin cancer excision in the upper mid chest wall, Abdomen - Mildly distended and firm. Liver is not overtly enlarged or tender. Spleen is not palpable. There is no abdominal mass or ascites noted and there is no inguinal adenopathy, Extremities - No edema, Neurologic - No focal neurologic deficits noted. Impression: 1. Patient with hepatocellular carcinoma involving the left hepatic lobe. There is a suspected satellite lesion in the left hepatic lobe by CT scan, and by PET/CT there is an area of suspected involvement in the right hepatic dome measuring 3.0 cm. There are no other apparent sites of involvement. As such, by clinical evaluation, his disease appears to be stage IIIA (T3, N0, M0). 2. He has no history of underlying liver disease. He had negative hepatitis C serology in 2010. 3. He recently was treated for iron deficiency anemia in association with rectal bleeding. A specific source of blood loss was not determined, but management was conservative as he had a negative colonoscopy in 2019. 4. He has undergone radiation for recurrent squamous cell skin cancer of the left frontal scalp. Thus far there has been no evidence for further recurrence of the squamous cell cancer. 5. He recently underwent excision of a basal cell skin cancer from the upper mid chest wall. His other medical illnesses include: 6. Hypertension. 7. Hyperlipidemia. 8. Type 2 diabetes. 9. Chronic kidney disease, stage IV. 10. Coronary artery disease with recent non-ST elevation myocardial infarction and coronary angioplasty/stent placement. 11. GERD. 12. Temporal arteritis, on long-term steroid therapy. Plan: The CT and PET/CT findings were reviewed with the patient and his daughter, and we reviewed the CT images. The pathology results also were reviewed, and we discussed the clinical implications. He has primary hepatocellular carcinoma with a relatively large area of involvement in the left hepatic lobe. This apparently has been a slow-growing neoplasm, as it has only increased slightly in size compared to a prior CT scan from a year ago. He does not appear to have any underlying liver pathology. As such, his disease may still be amenable to surgical resection or other regional therapy. On the other hand, he has not been symptomatic with it, and as it does appear to be a slowly progressive neoplasm, observation/symptomatic management would not be an unreasonable option for him. At least initially I am going to present this to a hepatobiliary surgeon, and I will give him some additional time to discuss this with his daughter. We will then decide whether to proceed with referral or to just continue with conservative management. Signed By: Sinan Blake M.D. <<Signature on File>>
== END 2020-03-08 06:02 | disposition home or self-care (01) ==
LOC: ONCMED 06:03
PROVIDERS: PCP Family Medicine; Visit Provider Internal Medicine Medical Oncology
DX: C22.0 Liver cell carcinoma (principal); Z85.828 Personal history of other malignant neoplasm of skin; E78.5 Hyperlipidemia, unspecified; E11.22 Type 2 diabetes mellitus with diabetic chronic kidney disease; I12.9 Hypertensive chronic kidney disease with stage 1 through stage 4 chronic kidney disease, or unspecified chronic kidney disease; N18.4 Chronic kidney disease, stage 4 (severe); I25.10 Atherosclerotic heart disease of native coronary artery without angina pectoris; I25.2 Old myocardial infarction; K21.9 Gastro-esophageal reflux disease without esophagitis; M31.6 Other giant cell arteritis; Z79.52 Long term (current) use of systemic steroids; Z95.5 Presence of coronary angioplasty implant and graft; Z79.4 Long term (current) use of insulin
CPT/HCPCS: 99214

== ENCOUNTER 2020-03-10 10:45 | Outpatient (RCR) | payer MEDICARE, BC, SELFPAY | END 2020-04-08 23:59 | disposition home or self-care (01) | LOC: CR 10:45 | PROVIDERS: PCP Family Medicine; Referring Provider Internal Medicine Cardiovascular Disease; Visit Provider Radiology Radiation Oncology | DX: Z95.5 Presence of coronary angioplasty implant and graft (principal) | CPT/HCPCS: 93798 ==

== ENCOUNTER 2020-04-09 11:04 | Outpatient (RCR) | payer SELFPAY | END 2020-05-09 23:59 | disposition home or self-care (01) | LOC: CR 11:04 | PROVIDERS: PCP Family Medicine; Referring Provider Internal Medicine Cardiovascular Disease; Visit Provider Radiology Radiation Oncology | DX: Z95.5 Presence of coronary angioplasty implant and graft (principal) ==

== ENCOUNTER 2020-05-08 10:39 | Outpatient (CLI) | payer MEDICARE, BC, SELFPAY ==
[2020-05-08 11:34] LABS: Alanine Aminotransferase 18 U/L (0-41); Albumin Level 3.5 g/dL (3.5-5.2); Alkaline Phosphatase 199 IU/L (40-130); Anion Gap 16.8 (5-19); Aspartate Amino Transferase 29 U/L (0-40); Blood Urea Nitrogen 39 mg/dL (8-23); Calcium 9.5 mg/dL (8.5-10.5); Carbon Dioxide 25 mmol/L (22-29); Chloride 103 mmol/L (98-107); Globulin 3.4 g/dL (1.3-4.6); Glucose 223 mg/dL (65-115); Osmolality Calculated 306 mOsm/kg (285-295); Potassium 4.8 mmol/L (3.5-5.1); Sodium 140 mmol/L (136-145); Total Bilirubin 0.2 mg/dL (0.15-1.2); Total Protein 6.9 g/dL (6.6-8.7)
== END 2020-05-08 10:40 | disposition home or self-care (01) ==
LOC: ONCMED 10:46
PROVIDERS: PCP Family Medicine; Visit Provider Nurse Practitioner
DX: C22.0 Liver cell carcinoma (principal); D64.9 Anemia, unspecified
CPT/HCPCS: 36415; 80053

== ENCOUNTER 2020-05-14 13:59 | Outpatient (RCR) | payer SELFPAY | END 2020-06-09 23:59 | disposition home or self-care (01) | LOC: CR 13:59 | PROVIDERS: PCP Family Medicine; Referring Provider Internal Medicine Cardiovascular Disease; Visit Provider Radiology Radiation Oncology | DX: Z95.5 Presence of coronary angioplasty implant and graft (principal) ==

== ENCOUNTER 2020-05-15 08:38 | Outpatient (CLI) | payer MEDICARE, BC, SELFPAY ==
[2020-05-15 10:23] LABS: Alanine Aminotransferase 16 U/L (0-41); Albumin Level 3.6 g/dL (3.5-5.2); Alkaline Phosphatase 206 IU/L (40-130); Anion Gap 15.9 (5-19); Aspartate Amino Transferase 27 U/L (0-40); Blood Urea Nitrogen 40 mg/dL (8-23); Calcium 9.3 mg/dL (8.5-10.5); Carbon Dioxide 28 mmol/L (22-29); Chloride 101 mmol/L (98-107); Glucose 193 mg/dL (65-115); Osmolality Calculated 305 mOsm/kg (285-295); Potassium 4.9 mmol/L (3.5-5.1); Sodium 140 mmol/L (136-145); Total Bilirubin 0.3 mg/dL (0.15-1.2); Total Protein 6.6 g/dL (6.6-8.7)
== END 2020-05-15 08:39 | disposition home or self-care (01) ==
LOC: ONCMED 08:41
PROVIDERS: PCP Family Medicine; Visit Provider Internal Medicine Medical Oncology
DX: C22.0 Liver cell carcinoma (principal)
CPT/HCPCS: 36415; 80053

== ENCOUNTER 2020-06-07 08:38 | Outpatient (CLI) | payer MEDICARE, BC, SELFPAY ==
[2020-06-07 10:40] LABS: Alanine Aminotransferase 15 U/L (0-41); Albumin Level 3.6 g/dL (3.5-5.2); Alkaline Phosphatase 216 IU/L (40-130); Anion Gap 16.8 (5-19); Aspartate Amino Transferase 32 U/L (0-40); Blood Urea Nitrogen 42 mg/dL (8-23); Calcium 9.7 mg/dL (8.5-10.5); Carbon Dioxide 28 mmol/L (22-29); Chloride 99 mmol/L (98-107); Globulin 3.6 g/dL (1.3-4.6); Glucose 122 mg/dL (65-115); Osmolality Calculated 300 mOsm/kg (285-295); Potassium 4.8 mmol/L (3.5-5.1); Sodium 139 mmol/L (136-145); Total Bilirubin 0.4 mg/dL (0.15-1.2); Total Protein 7.2 g/dL (6.6-8.7)
== END 2020-06-07 08:39 | disposition home or self-care (01) ==
PROVIDERS: PCP Family Medicine; Visit Provider Internal Medicine Medical Oncology
DX: C22.0 Liver cell carcinoma (principal)
CPT/HCPCS: 36415; 80053

== ENCOUNTER 2020-06-11 11:24 | Outpatient (RCR) | payer SELFPAY | END 2020-07-07 23:59 | disposition home or self-care (01) | LOC: CR 11:24 | PROVIDERS: PCP Family Medicine; Referring Provider Internal Medicine Cardiovascular Disease; Visit Provider Radiology Radiation Oncology | DX: Z95.5 Presence of coronary angioplasty implant and graft (principal) ==

== ENCOUNTER 2020-06-19 13:12 | Outpatient (CLI) | payer MEDICARE, BC, SELFPAY ==
[2020-06-19 15:22] LABS: Alanine Aminotransferase 16 U/L (0-41); Albumin Level 3.6 g/dL (3.5-5.2); Alkaline Phosphatase 235 IU/L (40-130); Anion Gap 17.8 (5-19); Aspartate Amino Transferase 32 U/L (0-40); Blood Urea Nitrogen 44 mg/dL (8-23); Calcium 9.5 mg/dL (8.5-10.5); Carbon Dioxide 26 mmol/L (22-29); Chloride 98 mmol/L (98-107); Globulin 3.9 g/dL (1.3-4.6); Glucose 245 mg/dL (65-115); Osmolality Calculated 303 mOsm/kg (285-295); Potassium 4.8 mmol/L (3.5-5.1); Sodium 137 mmol/L (136-145); Total Bilirubin 0.3 mg/dL (0.15-1.2); Total Protein 7.5 g/dL (6.6-8.7)
== END 2020-06-19 13:13 | disposition home or self-care (01) ==
LOC: ONCMED 13:12
PROVIDERS: Absent Provider Nurse Practitioner; PCP Family Medicine; Visit Provider Surgery
DX: C22.0 Liver cell carcinoma (principal)
CPT/HCPCS: 36415; 80053

== ENCOUNTER → 2020-07-03 11:28 | Outpatient (BNVA) | payer MEDICARE, BC, SELFPAY | PROVIDERS: PCP Family Medicine; Visit Provider Internal Medicine Cardiovascular Disease | DX: I50.33 Acute on chronic diastolic (congestive) heart failure (principal); K92.2 Gastrointestinal hemorrhage, unspecified; I25.119 Atherosclerotic heart disease of native coronary artery with unspecified angina pectoris; I10 Essential (primary) hypertension; E78.2 Mixed hyperlipidemia; E11.9 Type 2 diabetes mellitus without complications; Z79.4 Long term (current) use of insulin | CPT/HCPCS: 85025 ==

== ENCOUNTER 2020-07-08 11:24 | Outpatient (RCR) | payer SELFPAY | END 2020-08-07 23:59 | disposition home or self-care (01) | LOC: CR 11:24 | PROVIDERS: PCP Family Medicine; Referring Provider Internal Medicine Cardiovascular Disease; Visit Provider Radiology Radiation Oncology | DX: Z95.5 Presence of coronary angioplasty implant and graft (principal) ==

== ENCOUNTER 2020-07-19 09:54 | Outpatient (CLI) | payer MEDICARE, BC, SELFPAY ==
[2020-07-19 10:45] LABS: Alanine Aminotransferase 23 U/L (0-41); Albumin Level 3.4 g/dL (3.5-5.2); Alkaline Phosphatase 213 IU/L (40-130); Anion Gap 15.5 (5-19); Aspartate Amino Transferase 40 U/L (0-40); Blood Urea Nitrogen 22 mg/dL (8-23); Carbon Dioxide 22 mmol/L (22-29); Chloride 107 mmol/L (98-107); Globulin 3.2 g/dL (1.3-4.6); Glucose 101 mg/dL (65-115); Osmolality Calculated 293 mOsm/kg (285-295); Potassium 4.5 mmol/L (3.5-5.1); Sodium 140 mmol/L (136-145); Total Bilirubin 0.3 mg/dL (0.15-1.2); Total Protein 6.6 g/dL (6.6-8.7)
== END 2020-07-19 09:55 | disposition home or self-care (01) ==
PROVIDERS: PCP Family Medicine; Visit Provider Internal Medicine Medical Oncology
DX: C22.0 Liver cell carcinoma (principal)
CPT/HCPCS: 36415; 80053

== ENCOUNTER → 2020-07-26 10:23 | Outpatient (BNVA) | payer MEDICARE, BC, SELFPAY | PROVIDERS: PCP Family Medicine; Visit Provider Internal Medicine Cardiovascular Disease | DX: I50.33 Acute on chronic diastolic (congestive) heart failure (principal) | CPT/HCPCS: 80048; 83735; 83880 ==

== ENCOUNTER 2020-08-02 05:57 | Outpatient (CLI) | payer MEDICARE, BC, SELFPAY ==
[2020-08-02 10:31] LABS: Alanine Aminotransferase 22 U/L (0-41); Albumin Level 3.6 g/dL (3.5-5.2); Alkaline Phosphatase 221 IU/L (40-130); Anion Gap 16.2 (5-19); Aspartate Amino Transferase 40 U/L (0-40); Blood Urea Nitrogen 33 mg/dL (8-23); Carbon Dioxide 27 mmol/L (22-29); Chloride 101 mmol/L (98-107); Globulin 3.6 g/dL (1.3-4.6); Glucose 182 mg/dL (65-115); Osmolality Calculated 302 mOsm/kg (285-295); Potassium 4.2 mmol/L (3.5-5.1); Sodium 140 mmol/L (136-145); Total Bilirubin 0.3 mg/dL (0.15-1.2); Total Protein 7.2 g/dL (6.6-8.7)
== END 2020-08-02 05:58 | disposition home or self-care (01) ==
LOC: LAB 06:00
PROVIDERS: PCP Family Medicine; Visit Provider Nurse Practitioner
DX: C22.0 Liver cell carcinoma (principal)
CPT/HCPCS: 80053

== ENCOUNTER 2020-08-08 10:08 | Outpatient (RCR) | payer SELFPAY | END 2020-09-06 23:59 | disposition home or self-care (01) | LOC: CR 10:08 | PROVIDERS: PCP Family Medicine; Referring Provider Internal Medicine Cardiovascular Disease; Visit Provider Radiology Radiation Oncology | DX: Z95.5 Presence of coronary angioplasty implant and graft (principal) ==

== ENCOUNTER 2020-09-09 11:11 | Outpatient (RCR) | payer SELFPAY | END 2020-10-07 23:59 | disposition home or self-care (01) | LOC: CR 11:11 | PROVIDERS: PCP Family Medicine; Referring Provider Internal Medicine Cardiovascular Disease; Visit Provider Radiology Radiation Oncology | DX: Z95.5 Presence of coronary angioplasty implant and graft (principal) ==

== ENCOUNTER 2020-10-08 14:41 | Outpatient (RCR) | payer SELFPAY | END 2020-11-06 23:59 | disposition home or self-care (01) | LOC: CR 14:41 | PROVIDERS: PCP Family Medicine; Referring Provider Internal Medicine Cardiovascular Disease; Visit Provider Radiology Radiation Oncology | DX: Z95.5 Presence of coronary angioplasty implant and graft (principal) ==

== ENCOUNTER 2020-11-07 14:22 | Outpatient (RCR) | payer SELFPAY | END 2020-12-07 23:59 | disposition home or self-care (01) | LOC: CR 14:22 | PROVIDERS: PCP Family Medicine; Referring Provider Internal Medicine Cardiovascular Disease; Visit Provider Radiology Radiation Oncology | DX: Z95.5 Presence of coronary angioplasty implant and graft (principal) ==

== ENCOUNTER 2020-11-12 08:26 | Outpatient (CLI) | payer MEDICARE, BC, SELFPAY ==
--- NOTE | 2020-11-12 09:30 | USCV_ITS ---
Eddie Mendoza Age: 85 Gender: M : 1935 Exam Date: 11/12/2020 08:51 Ordering Phys: Evans Smith DPM Technologist: Exam Location: [facility] [place]_ Indication: PAD RIGHT LEFT Brachial 136.00 mmHg Brachial 140.00 mmHg Pressure (mmHg) Waveform Pressure (mmHg) Waveform 151.00 Above Knee 155.00 89.00 Below Knee 168.00 84.00 RATE ANALYST 170.00 111.00 DPA 172.00 0.79 Ankle/Brachial Index 1.20 71.00 Pre-Exercise Toe Pressure 61.00 0.51 Pre-Exercise Toe/Brachial Index 0.44 FINDINGS Normal resting JUSTINE and TBI on the right side of 0.79 and 0.51 respectively Normal resting JUSTINE with the slightly diminished resting TBI on the left side(1.20 and 0.61 respectively Delayed peaking low amplitude PVR waveforms on the right side. PVR waveforms showing blunting of the dicrotic notch on the left side CONCLUSIONS Features of moderate peripheral artery disease on the right schedule, based on the JUSTINE and TBI. However the PVR forms are suggestive of severe arterial disease. Features of mild peripheral arterial disease on the left side. Consider CTA/peripheral angiogram to better evaluate the peripheral arteries, if clinically indicated No similar previous studies are available for comparison Dr Rena Billings MD [facility] (Electronically Signed) Final Date: 13 November 2020 07:53 S
== END 2020-11-12 08:27 | disposition home or self-care (01) ==
LOC: RAD 08:29
PROVIDERS: PCP Family Medicine; Visit Provider Podiatrist Foot & Ankle Surgery
DX: R09.89 Other specified symptoms and signs involving the circulatory and respiratory systems (principal); I73.9 Peripheral vascular disease, unspecified
CPT/HCPCS: 93923

== ENCOUNTER 2020-11-27 10:16 | Outpatient (CLI) | payer MEDICARE, BC, SELFPAY ==
[2020-11-27 17:57] LABS: Tumor Marker Alpha Fetoprotein > 60000.0 ng/mL (0-8.3)
== END 2020-11-27 10:17 | disposition home or self-care (01) ==
LOC: LAB 10:20
PROVIDERS: PCP Family Medicine; Visit Provider Surgery
DX: C22.0 Liver cell carcinoma (principal)
CPT/HCPCS: 36415; 82105

== ENCOUNTER 2020-12-09 15:23 | Inpatient (IN) | payer MEDICARE, BC, SELFPAY ==
[2020-12-09] VITALS (17 sets, daily range): BP systolic 99–132; BP diastolic 57–77; PULSE 79–93; RESP 16–20; TEMP 36.4–36.6; O2SAT 94–100; BMI 23.3
--- NOTE | 2020-12-09 15:46 | ECG_ITS ---
[facility] Test Date: 2020-12-09 Pat Name: Eddie Mendoza Department: Room: Gender: Male Medical Research Scientist: : 1935 Requested By: Derrek Kruse Order Number: [id number] Argenis MD: EMILY RIVERO Measurements Intervals [place] Rate: 91 P: 68 SD: 144 QRS: -59 QRSD: 140 T: 104 QT: 405 QTc: 499 Interpretive Statements SINUS RHYTHM RIGHT BUNDLE BRANCH BLOCK [120+ ms QRS DURATION, UPRIGHT V1, 40+ ms S IN I/aVL/V4/V5/V6] LEFT ANTERIOR FASCICULAR BLOCK [QRS AXIS <= -45, QR IN I, RS IN II] LEFT VENTRICULAR HYPERTROPHY AND ST-T CHANGE [VOLTAGE CRITERIA PLUS ST/T ABNORMALITY] POSSIBLE ANTERIOR MYOCARDIAL INFARCTION [30 ms Q WAVE IN V3/V4, OR R < 0.2 mV IN V4], OF INDETERMINATE AGE Compared to ECG 10/23/2019 17:05:41 Left ventricular hypertrophy now present ST (T wave) deviation now present Myocardial infarct finding now present Electronically Signed On 12-09-2020 23:34:24 CDT by EMILY RIVERO [email or web address]
--- NOTE | 2020-12-09 15:47 | CTR_ITS ---
PROCEDURE INFORMATION: Exam: CT Abdomen And Pelvis Without Contrast Exam date and time: 12/09/2020 3:47 PM Age: 85 years old Clinical indication: Abdominal pain; Generalized; Prior surgery; Surgery type: Gb, coronary stent; Patient HX: HX of skin and liver cancer; Additional info: Flank pain. Passing blood, weakness. TECHNIQUE: Imaging protocol: Computed tomography of the abdomen and pelvis without contrast. Total images: 321 Radiation optimization: All CT scans at this facility use at least one of these dose optimization techniques: automated exposure control; mA and/or kV adjustment per patient size (includes targeted exams where dose is matched to clinical indication); or iterative reconstruction. COMPARISON: CT abdomen pelvis wo con [id number] 11/28/2019 9:30 AM RADIATION DOSE METRICS: Total DLP (mGy-cm): 999.78 FINDINGS: Lungs: Evidence of low-grade interstitial edema/pulmonary edema. COPD/chronic bronchitis. Pleural spaces: Scant right pleural effusion. Heart: Cardiomegaly. Coronary artery disease. Scant volume pericardial effusion. Mediastinal space: Small hiatal hernia. Liver: Cirrhosis of the liver with hepatomegaly. Evidence of diffuse hepatic metastatic disease that has progressed since last evaluation of 11/28/2019. Gallbladder and bile ducts: Status post cholecystectomy. Pancreas: Pancreas is unremarkable. No visible pancreatic ductal ectasia. Spleen: Calcified splenic granulomas of antecedent disease. Adrenal glands: Adrenal glands unremarkable. Kidneys and ureters: No visible hydronephrosis or perinephric fluid bilaterally. No visible nephrolithiasis or visible ureterolithiasis. Stable bilateral simple appearing renal cortical cysts to include a small hemorrhagic cyst left kidney. No follow-up recommended. Stomach and bowel: Diverticulosis coli, primarily the sigmoid colon, without visible evidence of acute diverticulitis. Nonobstructive bowel pattern. No visible significant adynamic or reactive ileus. Appendix: The appendix is visualized and appears noninflamed. Intraperitoneal space: Small volume intraperitoneal ascites. Moderate mesenteric edema. No visible pneumoperitoneum. Vasculature: The abdominal aorta is nonaneurysmal. Moderate arterial sclerotic disease. Lymph nodes: Prominent gudelia hepatis lymph nodes. No generalized lymphadenopathy. Urinary bladder: Mild diffuse bladder wall thickening stable since 2019 which could be secondary to chronic cystitis or chronic partial bladder outlet obstruction. Reproductive: Prostate hypertrophy. Bones/joints: No visible acute osseous abnormality. No visible osteolytic or osteoblastic destructive process. Degenerative disease and degenerative disc disease of the spine with spondylosis deformans. Facet arthrosis. Soft tissues: Heavy body habitus. Bilateral inguinal hernias containing fat only. Right cremasteric reflex. Mild anasarca. CT/CT abdomen pelvis wo con [id number] IMPRESSION: 1. Cirrhosis of the liver with hepatomegaly. Evidence of diffuse hepatic metastatic disease that has progressed since last evaluation of 11/28/2019. 2. Small volume intraperitoneal ascites. 3. Moderate mesenteric edema. 4. Evidence of low-grade interstitial edema/pulmonary edema. 5. Scant right pleural effusion. 6. Cardiomegaly with scant volume pericardial effusion. 7. Coronary artery disease. 8. COPD/chronic bronchitis. 9. Extensive diverticulosis coli but without evidence for acute diverticulitis. 10. No visible hydronephrosis, hydroureter, ureterolithiasis, nephrolithiasis, or nephrocalcinosis. 11. Other nonurgent, nonemergent, chronic, postoperative, and age related findings as detailed in text above. Radiation Dose CTDIVOL = (mGy): DLP = 999.78 (mGy-cm)
--- NOTE | 2020-12-09 15:48 | ED_ITS ---
HPI - GI Bleed General: Chief complaint: GI Bleed Stated complaint: GI BLEED, INCREASED WEAKNESS Time Seen by Provider: 12/09/20 15:40 History of Present Illness: HPI Narrative: This patient presents to the emergency department is an 85-year-old male with complaint of GI bleeding. Patient has a history of liver cancer and has been undergoing treatment with Dr. Blake. Patient states that the pellets that they inserted in the liver is not ill. Patient states he started having dark black tarry stools few days back and now starting bright red and continues to get worse. Patient describes weakness. Will do medical evaluation treat as needed complaint: melena and blood streaked stool Onset (ago): day(s) Pain Consistency: constant Severity: moderate Relieving factors: none Exacerbating factors: none Context: liver disease Associated symptoms: Reports abdominal pain, malaise and poor appetite; Denies headache(s) or rash Review of Systems General: Reports: 10 or more systems reviewed and unremarkable except in HPI and below Const: Reports: malaise Eyes: Denies: change in vision or blurry vision ENMT: Denies: throat pain, hoarseness or mouth pain Card: Denies: chest pain, palpitations, irregular heart rhythm, edema, swelling of feet/ankles or lightheadedness Resp: Denies: dyspnea, productive cough, non-productive cough, wheezing or pain on inspiration GI: Reports: abdominal pain, hematochezia and melena : Denies: flank pain, dysuria, urinary frequency, urinary urgency or urinary hesitancy Musc: Denies: neck pain, back pain, extremity pain, extremity swelling, joint pain, joint swelling, joint redness, joint warmth or limited range of motion Skin/Breast: Denies: rash, pruritus, erythema or skin tenderness Neuro: Denies: headache(s), numbness in extremities or weakness in extremities Psych: Denies: anxiety or depression PFS ED PFSH: Medical History (Updated 12/09/20 @ 19:21 by Derrek Kruse MD) CHF (congestive heart failure), NYHA class III Chronic kidney disease Stage III Coronary artery disease Diabetes mellitus type 2, 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 History of squamous cell carcinoma Hyperlipidemia Hypertension Surgical History History of bilateral cataract extraction History of cholecystectomy History of colonoscopy (~2019) DR. CARTAGENA. [facility] [place]. History of coronary angioplasty with insertion of stent (~11/2019) History of Mohs surgery for squamous cell carcinoma of skin Squamous cell carcinoma of the scalp Family History Mother Cancer CAD (coronary artery disease) Father Hypertension Social History Smoking and tobacco status: former smoker Alcohol intake: never Physical Exam Const: COMMON NORMALS: no acute distress, average body habitus, patient oriented x3, no limitations, healthy appearing, alert and well nourished HENMT: COMMON NORMALS: normocephalic, atraumatic, hearing grossly normal bilaterally, external ears normal, EAC's normal, TM's normal bilaterally, Normal external nose present, Normal nasal mucous membranes and turbinates present, moist oral mucous membranes, oropharynx normal, dentition normal and gingiva normal HEAD & SCALP: normocephalic and atraumatic NOSE: Normal external nose present and Normal nasal mucous membranes and turbinates present EXTERNAL EAR: Yes external ears normal EXTERNAL AUDITORY CANAL: EAC's normal TYMPANIC MEMBRANE: TM's normal bilaterally Neck/C-Spine: COMMON NORMALS: full ROM, no lymphadenopathy, supple, no meningeal signs, no JVD, Thyroid normal and No carotid bruits THYROID: Thyroid normal Chest: COMMONS NORMALS: normal inspection of the chest, normal palpation of entire chest wall, normal inspection of the breasts and normal palpation of the breasts Breast/axilla inspection: Yes normal inspection of the breasts BREAST/AXILLA PALPATION: Yes normal palpation of the breasts Resp: COMMON NORMALS: normal respiratory effort, No retractions, No use of accessory muscles, clear to auscultation bilaterally and percussion normal AUSCULTATION: clear to auscultation bilaterally PERCUSSION: percussion normal Cardio: COMMON NORMALS: no JVD, regular rate, regular rhythm, S1 normal heart sound present, S2 normal heart sound present, No gallops present (Cardio), No clicks present (Cardio), No murmurs present (Cardio), No rub (Cardio) and Peripheral pulses 2+ throughout RATE: regular rate RHYTHM: regular rhythm HEART SOUNDS: S1 normal heart sound present and S2 normal heart sound present PERIPHERAL PULSES: Peripheral pulses 2+ throughout GI: COMMON NORMALS: Normal to inspection, nondistended, normoactive bowel sounds present, Soft to palpation, non-tender, No hepatosplenomegaly present, no masses and no bruits PALPATION: Yes Soft to palpation and Yes No hepatosplenomegaly present RECTAL EXAM: Yes heme positive stool : COMMON NORMALS: Yes no CVA tenderness BLADDER/KIDNEY EXAM: Yes no CVA tenderness Back/Pelvis: COMMON NORMALS: no CVA tenderness, thoracic and lumbar spine normal to inspection, no thoracic nor lumbar tenderness, thoraco-lumbar ROM normal and straight leg raise negative bilaterally Extremity: COMMON NORMALS: normal to inspection, full ROM, capillary refill normal, no joint enlargement, no clubbing, cyanosis or edema, no calf tenderness and no pedal edema Neuro: COMMON NORMALS: patient oriented x3 SENSORIUM/ORIENTATION: Yes alert MENINGEAL SIGNS: Yes no meningeal signs Course Consultations: Consultation #1: I discussed at length with Dr. Culver cardiology. He states no intervention at this time. Believes is related eleva vinh troponin to his liver cancer. He will see as a consult. Time: 17: Consultation #2: I discussed at length with Dr. Cartagena General Surgery he will see patient as a consult. Time: : Consultation #3: I did discuss at length with patient and family. Also discussed at length with Dr. Dhillon he is accepted this patient for admission. Time: 19:19 Vital Signs: Vital signs: Vital Signs Temperature 97.7 F 12/09/20 18:55 Pulse Rate 91 12/09/20 18:57 Respiratory Rate 16 12/09/20 18:55 Blood Pressure 118/69 12/09/20 18:57 Pulse Oximetry 99 12/09/20 18:57 MDM - GI Bleed MDM Narrative: Medical decision making narrative: This patient presents to the emergency department is an 85-year-old male with complaint of GI bleeding. Patient has a history of liver cancer and has been undergoing treatment with Dr. Blake. Patient states that the pellets that they inserted in the liver is not ill. Patient states he started having dark black tarry stools few days back and now starting bright red and continues to get worse. Patient describes weakness. Will do medical evaluation treat as needed I did discuss at length with patient and family. Also discussed at length with Dr. Dhillon he is accepted this patient for admission. Medical Records: Attestation: I reviewed the patient's medical records. Lab Data: Attestation: I reviewed the patient's lab results. Labs: Lab Results 12/09/20 12/09/20 12/09/20 Range/Units 15:30 15:30 15:30 WBC 7.9 (4.0-10.0) 10^3/ uL RBC 2.65 L (4.1-5.3) 10^6/u L Hgb 6.7 L (11.7-16.6) g/dL Hct 22.6 L (42.0-52.0) % MCV 85.3 (80-94) fL MCH 25.3 L (28.0-34.0) pg MCHC 29.6 L (30.0-36.0) g/dL RDW 19.6 H (12.1-15.1) % Plt Count 237 (130-400) 10^3/c mm MPV 12.9 H (7.4-10.4) fL Neut % (Auto) 97.9 % Lymph % (Auto) 1.0 % [place] % (Auto) 0.8 % Eos % (Auto) 0.0 % Baso % (Auto) 0.0 % Neut # (Auto) 7.73 H (1.8-7.7) 10^3/u L Lymph # (Auto) 0.1 L (0.8-4.8) 10^3/u L [place] # (Auto) 0.1 L (0.2-0.9) 10^3/u L Eos # (Auto) 0.0 (0.0-0.8) 10^3/u L Baso # (Auto) 0.0 (0.0-0.1) 10^3/u L Nucleated RBC % (a uto) 0 % Nucleated RBCs # 0.0 /100WBC PT (12.1-14.9) SECO NDS INR (0.8-1.2) APTT (23.9-36.7) SECO NDS Sodium 137 (136-145) mmol/L Potassium 5.4 H (3.5-5.1) mmol/L Chloride 105 (98-107) mmol/L Carbon Dioxide 16 L (22-29) mmol/L Anion Gap 21.4 H (5-19) BUN 74 H (8-23) mg/dL Creatinine 2.6 H (0.7-1.2) mg/dL GFR Calculation Not Reportable Glucose 275 H (65-115) mg/dL Calculated Osmolal ity 316 H (285-295) mOsm/k g Lactic Acid (0.5-2.2) mmol/L Calcium 8.6 (8.5-10.5) mg/dL Total Bilirubin 0.6 (0.15-1.2) mg/dL AST 147 H (0-40) U/L ALT 72 H (0-41) U/L Alkaline Phosphata se 369 H (40-130) IU/L Troponin T Gen 5 n g/L 231 H* (0-15) ng/L NT-Pro-B Natriuret Pep 08946 H (0-450) pg/mL Total Protein 5.8 L (6.6-8.7) g/dL Albumin 3.0 L (3.5-5.2) g/dL Globulin 2.8 (1.3-4.6) g/dL Lipase 81 H (13-60) U/L Blood Type Rho(D) Type Antibody Screen Crossmatch 12/09/20 12/09/20 12/09/20 Range/Units 16:20 16:20 16:20 WBC (4.0-10.0) 10^3/ uL RBC (4.1-5.3) 10^6/u L Hgb (11.7-16.6) g/dL Hct (42.0-52.0) % MCV (80-94) fL MCH (28.0-34.0) pg MCHC (30.0-36.0) g/dL RDW (12.1-15.1) % Plt Count (130-400) 10^3/c mm MPV (7.4-10.4) fL Neut % (Auto) % Lymph % (Auto) % [place] % (Auto) % Eos % (Auto) % Baso % (Auto) % Neut # (Auto) (1.8-7.7) 10^3/u L Lymph # (Auto) (0.8-4.8) 10^3/u L [place] # (Auto) (0.2-0.9) 10^3/u L Eos # (Auto) (0.0-0.8) 10^3/u L Baso # (Auto) (0.0-0.1) 10^3/u L Nucleated RBC % (a uto) % Nucleated RBCs # /100WBC PT 14.90 (12.1-14.9) SECO NDS INR 1.13 (0.8-1.2) APTT 40.5 H (23.9-36.7) SECO NDS Sodium (136-145) mmol/L Potassium (3.5-5.1) mmol/L Chloride (98-107) mmol/L Carbon Dioxide (22-29) mmol/L Anion Gap (5-19) BUN (8-23) mg/dL Creatinine (0.7-1.2) mg/dL GFR Calculation Glucose (65-115) mg/dL Calculated Osmolal ity (285-295) mOsm/k g Lactic Acid 1.4 (0.5-2.2) mmol/L Calcium (8.5-10.5) mg/dL Total Bilirubin (0.15-1.2) mg/dL AST (0-40) U/L ALT (0-41) U/L Alkaline Phosphata se (40-130) IU/L Troponin T Gen 5 n g/L (0-15) ng/L NT-Pro-B Natriuret Pep (0-450) pg/mL Total Protein (6.6-8.7) g/dL Albumin (3.5-5.2) g/dL Globulin (1.3-4.6) g/dL Lipase (13-60) U/L Blood Type A Positive Rho(D) Type Positive / 4+ Antibody Screen Negative Crossmatch See Detail Imaging Data^: CT Abd/Pel: Attestation: I personally reviewed and interpreted this imaging study as follows: Radiologist's impression: FINDINGS: Lungs: Evidence of low-grade interstitial edema/pulmonary edema. COPD/chronic bronchitis. Pleural spaces: Scant right pleural effusion. Heart: Cardiomegaly. Coronary artery disease. Scant volume pericardial effusion. Mediastinal space: Small hiatal hernia. Liver: Cirrhosis of the liver with hepatomegaly. Evidence of diffuse hepatic metastatic disease that has progressed since last evaluation of 11/28/2019. Gallbladder and bile ducts: Status post cholecystectomy. Pancreas: Pancreas is unremarkable. No visible pancreatic ductal ectasia. Spleen: Calcified splenic granulomas of antecedent disease. Adrenal glands: Adrenal glands unremarkable. Kidneys and ureters: No visible hydronephrosis or perinephric fluid bilaterally. No visible nephrolithiasis or visible ureterolithiasis. Stable bilateral simple appearing renal cortical cysts to include a small hemorrhagic cyst left kidney. No follow-up recommended. Stomach and bowel: Diverticulosis coli, primarily the sigmoid colon, without visible evidence of acute diverticulitis. Nonobstructive bowel pattern. No visible significant adynamic or reactive ileus. Appendix: The appendix is visualized and appears noninflamed. Intraperitoneal space: Small volume intraperitoneal ascites. Moderate mesenteric edema. No visible pneumoperitoneum. Vasculature: The abdominal aorta is nonaneurysmal. Moderate arterial sclerotic disease. Lymph nodes: Prominent gudelia hepatis lymph nodes. No generalized lymphadenopathy. Urinary bladder: Mild diffuse bladder wall thickening stable since 2019 which could be secondary to chronic cystitis or chronic partial bladder outlet obstruction. Reproductive: Prostate hypertrophy. Bones/joints: No visible acute osseous abnormality. No visible osteolytic or osteoblastic destructive process. Degenerative disease and degenerative disc disease of the spine with spondylosis deformans. Facet arthrosis. Soft tissues: Heavy body habitus. Bilateral inguinal hernias containing fat only. Right cremasteric reflex. Mild anasarca. CT/CT abdomen pelvis wo con [id number] IMPRESSION: 1. Cirrhosis of the liver with hepatomegaly. Evidence of diffuse hepatic metastatic disease that has progressed since last evaluation of 11/28/2019. 2. Small volume intraperitoneal ascites. 3. Moderate mesenteric edema. 4. Evidence of low-grade interstitial edema/pulmonary edema. 5. Scant right pleural effusion. 6. Cardiomegaly with scant volume pericardial effusion. 7. Coronary artery disease. 8. COPD/chronic bronchitis. 9. Extensive diverticulosis coli but without evidence for acute diverticulitis. 10. No visible hydronephrosis, hydroureter, ureterolithiasis, nephrolithiasis, or nephrocalcinosis. 11. Other nonurgent, nonemergent, chronic, postoperative, and age related findings as detailed in text above. EKG Data^: EKG 1: Attestation: I personally reviewed and interpreted this EKG as follows: EKG interpretation date: 12/09/20 EKG interpretation time: 17:06 Prior EKG tracings: not available for review Interpretation: Sinus rhythm with right bundle branch block left anterior fascicular block left ventricular hypertrophy heart rate 91 nonspecific EKG changes Discharge Plan Discharge Patient Disposition: Admitted As Inpatient Clinical Impression: Lower GI bleed, Cancer of liver, Elevated troponin, Acute blood loss anemia Condition: Stable Prescriptions: No Action Ferretts 325 mg (106 mg iron) tablet 650 mg PO DAILY RF: 0 pantoprazole 40 mg tablet,delayed release (DR/EC) 40 mg PO BID Qty: 180 RF: 3 atorvastatin 40 mg tablet 40 mg PO BEDTIME 90 Days Qty: 90 RF: 3 furosemide 40 mg tablet See Rx Instructions .ROUTE .COMPLEX Qty: 135 RF: 3 cholecalciferol (vitamin D3) [Vitamin D3] 25 mcg (1,000 unit) Tablet 25 mcg PO DAILY RF: 0 vitamin [id number] acid 1,000-400 mcg Lozenge 1 nabeel sublingual DAILY RF: 0 prednisone 10 mg tablet 30 mg PO DAILY RF: 0 metoprolol succinate 50 mg tablet extended release 24 hr 50 mg PO DAILY RF: 0 aspirin [Aspir-81] 81 mg Tablet,Delayed Release (Dr/Ec) 81 mg PO DAILY RF: 0 Hold Instructions: Resume on 02/23/20. tamsulosin 0.4 mg capsule 0.4 mg PO BEDTIME RF: 0 glipizide 5 mg tablet 10 mg PO DAILY RF: 0 vitamin A 1 cap PO DAILY RF: 0 Levemir FlexTouch U-100 Insuln 100 unit/mL (3 mL) insulin pen 15 unit SUBCUT DAILY RF: 0 allopurinol 100 mg tablet 100 mg PO DAILY RF: 0 Referrals: Jorge Alberto Mitchell DO [Primary Care Provider] - Coding Level of Care Code ED Manager Community Development for Chg Fwd Exam Comprehensive
[2020-12-09 16:10] LABS: Hematocrit 22.6 % (42.0-52.0); Hemoglobin 6.7 g/dL (11.7-16.6); Lymphocytes # 0.1 10^3/uL (0.8-4.8); Mean Corpuscular HGB Conc 29.6 g/dL (30.0-36.0); Mean Corpuscular Hemoglobin 25.3 pg (28.0-34.0); Mean Corpuscular Volume 85.3 fL (80-94); Mean Platelet Volume 12.9 fL (7.4-10.4); Monocytes # 0.1 10^3/uL (0.2-0.9); Monocytes % 0.8 %; Neutrophils # 7.73 10^3/uL (1.8-7.7); Neutrophils % 97.9 %; Nucleated Red Blood Cells % 0 %; Platelet Count 237 10^3/cmm (130-400); Red Blood Count 2.65 10^6/uL (4.1-5.3); Red Cell Distribution Width 19.6 % (12.1-15.1); White Blood Count 7.9 10^3/uL (4.0-10.0)
[2020-12-09 16:26] LABS: Alanine Aminotransferase 72 U/L (0-41); Alkaline Phosphatase 369 IU/L (40-130); Anion Gap 21.4 (5-19); Aspartate Amino Transferase 147 U/L (0-40); Blood Urea Nitrogen 74 mg/dL (8-23); Calcium 8.6 mg/dL (8.5-10.5); Carbon Dioxide 16 mmol/L (22-29); Chloride 105 mmol/L (98-107); Globulin 2.8 g/dL (1.3-4.6); Glucose 275 mg/dL (65-115); Lipase 81 U/L (13-60); NT Pro B Type Natriuretic Pept 13754 pg/mL (0-450); Osmolality Calculated 316 mOsm/kg (285-295); Potassium 5.4 mmol/L (3.5-5.1); Sodium 137 mmol/L (136-145); Total Bilirubin 0.6 mg/dL (0.15-1.2); Total Protein 5.8 g/dL (6.6-8.7)
[2020-12-09 16:37] LABS: INR 1.13 (0.8-1.2)
[2020-12-09 16:38] LABS: Partial Thromboplastin Time 40.5 SECONDS (23.9-36.7)
[2020-12-09 16:45] LABS: Lactic Sepsis W/Reflex 1.4 mmol/L (0.5-2.2)
[2020-12-09 16:47] LABS: Troponin T (5th) Once 231 ng/L (0-15)
[2020-12-09] MEDS: sodium chloride 0.9% 1,000 ML 999 ML IV (17:04)
--- NOTE | 2020-12-09 18:11 | P.CONIM_ITS ---
Providers/Reason For Consult Consulting Physician/Specialty*: Cardiology Reason for Consult*: Normal cardiac markers, GI bleed Primary Care Provider: Jorge Alberto Mitchell DO History of Present Illness History of Present Illness Eddie Mendoza is a 85 year old male past medical history significant for coronary disease status post drug-eluting stent to RCA and balloon angioplasty of diagonal and ramus intermedius who is undergoing treatment for hepatocellular carcinoma presented with GI bleed and hemoglobin of 6. His troponin was 200. He denies any chest pain we have been asked to assist in his care with the primary team since cardiac markers are abnormal. Twelve-lead EKG did not suggestive of any significant ST changes. Review of Systems General: Reports: 10 or more systems reviewed and unremarkable except in HPI and below Const: Reports: malaise Eyes: Denies: change in vision or blurry vision ENMT: Denies: throat pain, enlarged tonsils, hoarseness or mouth pain Card: Denies: chest pain, palpitations, irregular heart rhythm, edema, swelling of feet/ankles or lightheadedness Resp: Denies: dyspnea, productive cough, non-productive cough, wheezing or pain on inspiration GI: Reports: abdominal pain, hematochezia and melena : Denies: flank pain, dysuria, urinary frequency, urinary urgency or urinary hesitancy Musc: Denies: neck pain, back pain, extremity pain, extremity swelling, joint pain, joint swelling, joint redness, joint warmth or limited range of motion Skin/Breast: Reports: surgical incision; Denies: rash, pruritus, erythema or skin tenderness Neuro: Denies: headache(s), numbness in extremities or weakness in extremities Psych: Denies: anxiety or depression All/Imm: Denies: acute wheezing Meds/Allergies Home Medications and Allergies Home Medications Medication Instructions Recorded Confirmed Last Taken Type aspirin [Aspir-81] 81 mg PO DAILY 10/23/19 12/09/20 12/08/20 History glipizide 10 mg PO DAILY 10/23/19 12/09/20 12/09/20 History metoprolol succinate 50 mg PO DAILY 10/23/19 12/09/20 12/08/20 History prednisone 30 mg PO DAILY 10/23/19 12/09/20 12/09/20 History tamsulosin 0.4 mg PO BEDTIME 10/23/19 12/09/20 12/08/20 History vitamin A 1 cap PO DAILY 10/23/19 12/09/20 12/09/20 History insulin detemir U-100 100 unit/mL 15 unit SUBCUT DAILY ml 11/01/19 12/09/20 12/08/20 History (3 mL) subcutaneous pen cholecalciferol (vitamin D3) 25 mcg PO DAILY 01/20/20 12/09/20 12/09/20 History [Vitamin D3] vitamin [id number] acid 1 nabeel SUBLINGUAL DAILY 01/20/20 12/09/20 12/08/20 History ferrous fumarate 325 mg (106 mg 650 mg PO DAILY tab 09/04/20 12/09/20 12/09/20 History iron) tablet pantoprazole 40 mg tablet,delayed 40 mg PO BID #180 tab 09/23/20 12/09/20 12/09/20 Rx release atorvastatin 40 mg tablet 40 mg PO BEDTIME 90 Days #90 tab 10/18/20 12/09/20 12/08/20 Rx furosemide 40 mg tablet See Rx Instructions .ROUTE 11/28/20 12/09/20 12/09/20 Rx .COMPLEX #135 tab allopurinol 100 mg PO DAILY 12/09/20 12/09/20 12/09/20 History Allergies Allergy/AdvReac Type Severity Reaction Status Date / Time No Known Allergies Allergy Verified 11/06/20 08:30 PFSH Acute PFSH: Medical History (Updated 12/10/20 @ 07:32 by Nicolas Cartagena MD) CHF (congestive heart failure), NYHA class III Chronic kidney disease Stage III Colon polyps Coronary artery disease Diabetes mellitus type 2, insulin dependent Diverticular disease of colon Hepatocellular carcinoma History of giant cell arteritis History of squamous cell carcinoma Hyperlipidemia Hypertension Surgical History (Updated 12/10/20 @ 07:32 by Nicolas Cartagena MD) History of bilateral cataract extraction History of cholecystectomy History of colonoscopy (~2018) 11/2018 --significant diverticulosis, internal hemorrhoids, colon polyps (removed) History of coronary angioplasty with insertion of stent (~11/2019) History of Mohs surgery for squamous cell carcinoma of skin Squamous cell carcinoma of the scalp Family History Mother Cancer CAD (coronary artery disease) Father Hypertension Social History Smoking and tobacco status: former smoker Alcohol intake: never Dietary Habits: Current diet type/program: regular Caffeine: Yes Caffeine intake frequency: coffee Number of coffee servings: 2 Exercise: What type of physical activity do you participate in?: none (cardiac rehab ordered ) Safety: Seatbelt use: always Home Safety: Working smoke detector in home: Yes Fire extinguisher in home: Yes Personal Safety: Do you feel safe at home: Yes Vitals/I&O/Wt Last Vital Signs Temp 97.7 F 12/09/20 15:33 Pulse 93 12/09/20 17:07 Resp 18 12/09/20 15:33 BP 99/61 12/09/20 17:52 Pulse Ox 99 12/09/20 17:52 Weight last 48 hrs Weight 158 lb Physical Exam Narrative: EXAM NARRATIVE: GENERAL: Patient is alert, awake and oriented x3. NECK: No jugular vein distension. HEENT: No cyanosis. No icterus. No pallor. HEART: Regular S1 and S2. No murmur, rub or gallop. LUNGS: Clear to auscultate bilaterally. ABDOMEN: Soft, nontender and nondistended. Positive bowel sounds. No guarding, rebound or tenderness. CENTRAL NERVOUS SYSTEM: Grossly nonfocal. EXTREMITIES: Lower extremities without edema bilaterally. A&P Assessment and plan (1) Lower GI bleed: Treatment is as per my medicine. Status: Acute (2) Elevated troponin: Most likely type II and secondary to GI bleed leading to hypotension demand ischemia. Advised replenishing blood loss continue current regimen. Not a good candidate for anticoagulation or antiplatelet at the moment. Recommend treating medically and conservative Status: Acute (3) Coronary artery disease: Stable from a coronary disease perspective advised keeping hemoglobin above 8. We can hold antiplatelet including aspirin and antiplatelet since it has been more than 1 year patient had stents Status: Acute Qualifiers: Associated angina: with unspecified angina Coronary Disease-Associated Artery/Lesion type: [place] artery [place] vs. transplanted heart: [place] heart Qualified Code(s): I25.119 - Atherosclerotic heart disease of [place] coronary artery with unspecified angina pectoris Consult Attestations Medical Necessity Statement: Patient require continuation hospitalization for above defined care. Coding Level of Care Code New Pt Acute Language Assistant for Margarita Crespo Patient Type New History Detailed Exam Detailed Medical Decision Making Moderate Complexity Diagnoses Lower GI bleed K92.2 Elevated troponin R77.8 Coronary artery disease I25.119 Associated angina: with unspecified angina Coronary Disease-Associated Artery/Lesion type: [place] artery [place] vs. transplanted heart: [place] heart
[2020-12-09] MEDS: sodium chloride 0.9% 100 mL Bag 50 ML IV (18:40)
--- NOTE | 2020-12-09 19:29 | PM.HP ---
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 Patient is stating that he is vaccinated with mRna vaccine 2 doses, he has history of diverticular bleed, for last few months he has been noticing bright bleed per rectum intermittently. This has contributed towards his worsening of his lethargy and fatigue. He has been losing weight and functional status has been declining. He is currently awaiting follow-up appointment with Dr. Blake, his AFP is greater than 60,000, status post radioactive pellets/seed implantation in May and June. In last 3 to 4 days he has been noticing bright bleed per rectum. Now he has gotten worse to the point he cannot even get up without any assistance. He is not able to use walker on his own. No recent strokelike symptoms but noticing weakness and lethargy of whole body. No recent syncope or chest pain nausea or vomiting Diagnosis in the ER revealed hemoglobin 6.7 however systolic blood pressure 122 heart rate 85, he is not complaining of any chest pain no signs of ischemic or infarct changes on EKG D-dimer 231, cardiology not planning for intervention not an ideal candidate for anticoagulation, likely type II [place] patient not complaining of any chest pain at the time of my evaluation Systolic blood pressure 120s heart rate 80s Daughter at the bedside Review of Systems Const: Reports: chills, body aches, change in weight and fatigue; Denies: fever(s) Eyes: Denies: change in vision ENMT: Denies: throat pain Card: Reports: dyspnea on exertion and orthopnea; Denies: chest pain Resp: Reports: dyspnea GI: Reports: hematochezia : Denies: flank pain Musc: Denies: neck pain Skin/Breast: Reports: new lesions and lesions Neuro: Reports: difficulty walking Psych: Reports: anxiety Endo: Denies: polyuria Pollo/Lymph: Reports: easy bruising, easy bleeding and petechiae All/Imm: Denies: urticaria Medications/Allergies Home Medications Medication Instructions Recorded Confirmed Last Taken Type aspirin [Aspir-81] 81 mg PO DAILY 10/23/19 12/09/20 12/08/20 History glipizide 10 mg PO DAILY 10/23/19 12/09/20 12/09/20 History metoprolol succinate 50 mg PO DAILY 10/23/19 12/09/20 12/08/20 History prednisone 30 mg PO DAILY 10/23/19 12/09/20 12/09/20 History tamsulosin 0.4 mg PO BEDTIME 10/23/19 12/09/20 12/08/20 History vitamin A 1 cap PO DAILY 10/23/19 12/09/20 12/09/20 History insulin detemir U-100 100 unit/mL 15 unit SUBCUT DAILY ml 11/01/19 12/09/20 12/08/20 History (3 mL) subcutaneous pen cholecalciferol (vitamin D3) 25 mcg PO DAILY 01/20/20 12/09/20 12/09/20 History [Vitamin D3] vitamin T36-lebyx acid 1 nabeel SUBLINGUAL DAILY 01/20/20 12/09/20 12/08/20 History ferrous fumarate 325 mg (106 mg 650 mg PO DAILY tab 09/04/20 12/09/20 12/09/20 History iron) tablet pantoprazole 40 mg tablet,delayed 40 mg PO BID #180 tab 09/23/20 12/09/20 12/09/20 Rx release atorvastatin 40 mg tablet 40 mg PO BEDTIME 90 Days #90 tab 10/18/20 12/09/20 12/08/20 Rx furosemide 40 mg tablet See Rx Instructions .ROUTE 11/28/20 12/09/20 12/09/20 Rx .COMPLEX #135 tab allopurinol 100 mg PO DAILY 12/09/20 12/09/20 12/09/20 History Allergies Allergy/AdvReac Type Severity Reaction Status Date / Time No Known Allergies Allergy Verified 11/06/20 08:30 PFSH Acute PFSH: Medical History (Updated 12/09/20 @ 21:10 by Danielle Dhillon MD) CHF (congestive heart failure), NYHA class III Chronic kidney disease Stage III Coronary artery disease Diabetes mellitus type 2, insulin dependent Diverticular disease of colon History of giant cell arteritis History of squamous cell carcinoma Hyperlipidemia Hypertension Surgical History History of bilateral cataract extraction History of cholecystectomy History of colonoscopy (~2018) DR. CARTAGENA. [facility] [place]. History of coronary angioplasty with insertion of stent (~11/2019) History of Mohs surgery for squamous cell carcinoma of skin Squamous cell carcinoma of the scalp Family History Mother Cancer CAD (coronary artery disease) Father Hypertension Social History Smoking and tobacco status: former smoker Alcohol intake: never Vitals/I&O/Wt Last Vital Signs Temp 97.7 F 12/09/20 18:55 Pulse 91 12/09/20 18:57 Resp 16 12/09/20 18:55 BP 118/69 12/09/20 18:57 Pulse Ox 99 12/09/20 18:57 12/09/20 12/09/20 12/09/20 06:59 14:59 22:59 Intake Total 0 / 0 Balance 0 / 0 Weight last 48 hrs Weight 71.668 kg Physical Exam Narrative: EXAM NARRATIVE: Elderly male appears stated age Clinically very dehydrated Dry mucous membranes S1, S2 sinus rhythm No murmur appreciated No signs of heart failure Abdomen soft, splenomegaly appreciated, nontender hepatomegaly No signs of peritonitis EOMI, PERRLA No neurological deficits Bilateral breath sounds without adventitious rhonchi or crackles Actinic keratosis of skin Data : 12/09/20 15:30 12/09/20 15:30 A&P Assessment and plan (1) Type 2 [place] (myocardial infarction): Status: Acute (2) Acute blood loss anemia: Status: Acute (3) Lower GI bleed: Status: Acute (4) Diabetes mellitus type 2, insulin dependent: Status: Acute (5) Cancer of liver: Status: Acute (6) Elevated troponin: Status: Acute Additional A&P Information Acute on chronic normocytic blood loss anemia History of diverticular bleed Currently blood pressure stable systolic 122 mm hg heart rate 85, no signs of hemodynamic instability We will request 2 units PRBC No active chest pain Underlying history of iron deficiency anemia Dr. Cartagena consulted N.p.o. overnight We will keep him on normal saline for now, hyperglycemia noted Accu-Cheks every 6 hours Type II [place] Baseline troponin greater than 100 no ischemic or infarct change on EKG, cardiology was notified, no plan for intervention, likely type II [place] Request echo in the morning Type 2 diabetes: Hyperglycemia, Accu-Cheks every 4 hours since he is n.p.o. Hepatocellular cancer Alpha-fetoprotein greater than 60,000 Status post radio pellet/seed transplantation in May and June Awaiting follow-up appointment with Dr. Blake No acute signs of decompensated liver failure no signs of hepatic encephalopathy Full code N.p.o. DVT prophylaxis contraindicated Attestations Medical Necessity Statement*: Anticipating discharge to cross more than 2 midnights for acute on chronic blood loss anemia, type II [place] and lethargy Time Spent in Patient Care: Greater than 35 minutes Coding Level of Care Code Acute Dobby Looms Pegger for [facility] F[facility] Diagnoses Type 2 [place] (myocardial infarction) I21.A1 Acute blood loss anemia D62 Lower GI bleed K92.2 Diabetes mellitus type 2, insulin dependent E11.9; Z79.4 Cancer of liver C22.9 Elevated troponin R77.8
[2020-12-09 21:23] LABS: SARS Covid-2 Antigen Negative (Negative)
[2020-12-09] MEDS: sodium chloride 0.9% (100 ml) 100 ML (22:09)
--- NOTE | 2020-12-09 23:56 | PC.NURSE ---
patient has one small and one large bloody bm while in ER.
[2020-12-10] VITALS (10 sets, daily range): BP systolic 104–133; BP diastolic 56–81; PULSE 70–94; RESP 14–25; TEMP 36.4–36.9; O2SAT 93–100; BMI 23.3
--- NOTE | 2020-12-10 00:15 | PC.NURSE ---
report to Irving FARMER
[2020-12-10] MEDS: sodium chloride 0.9% 1,000 ML 75 ML IV ×3 (05:45→22:49)
[2020-12-10 05:55] LABS: Basophils % 0.2 %; Eosinophils # 0.1 10^3/uL (0.0-0.8); Eosinophils % 0.6 %; Hematocrit 26.9 % (42.0-52.0); Hemoglobin 8.5 g/dL (11.7-16.6); Lymphocytes # 0.4 10^3/uL (0.8-4.8); Lymphocytes % 4.8 %; Mean Corpuscular HGB Conc 31.6 g/dL (30.0-36.0); Mean Corpuscular Hemoglobin 26.6 pg (28.0-34.0); Mean Corpuscular Volume 84.3 fL (80-94); Mean Platelet Volume 12.2 fL (7.4-10.4); Monocytes # 0.6 10^3/uL (0.2-0.9); Neutrophils # 7.19 10^3/uL (1.8-7.7); Neutrophils % 87.3 %; Nucleated Red Blood Cells % 0 %; Platelet Count 206 10^3/cmm (130-400); Red Blood Count 3.19 10^6/uL (4.1-5.3); Red Cell Distribution Width 17.2 % (12.1-15.1); White Blood Count 8.3 10^3/uL (4.0-10.0)
[2020-12-10 06:16] LABS: Blood Urea Nitrogen 70 mg/dL (8-23); Calcium 7.8 mg/dL (8.5-10.5); Carbon Dioxide 16 mmol/L (22-29); Chloride 113 mmol/L (98-107); Glucose 82 mg/dL (65-115); Osmolality Calculated 312 mOsm/kg (285-295); Sodium 141 mmol/L (136-145)
[2020-12-10 06:18] LABS: Anion Gap 16.5 (5-19); Potassium 4.5 mmol/L (3.5-5.1)
--- NOTE | 2020-12-10 07:14 | P.CONIM_ITS ---
Providers/Reason For Consult Consulting Physician/Specialty*: General Surgery Nicolas Cartagena MD Reason for Consult*: Hematochezia with anemia. Attending Physician: Danielle Dhillon MD Primary Care Provider: Jorge Alberto Mitchell DO History of Present Illness History of Present Illness Eddie Mendoza is a 85 year old male admitted yesterday with anemia and what he says is a 2-month history of painless hematochezia. He got to the point where he was very weak and dyspneic on exertion. He ended up coming to the emergency room where his hemoglobin was found to be 6.7. He has been transfused and says he feels somewhat better. The patient actually has a several year history of hematochezia and anemia. He had a colonoscopy in 11/2018 for the same reason. He was found to have a couple colon polyps that were excised but also had significant diverticular disease and internal hemorrhoids. No ongoing source of bleeding was noted at the time. He saw Dr. Medeiros last summer for the same reason, but because of the history of the colonoscopy a year earlier and suspected diverticular bleeding I believe the decision was made to manage him conservatively. He denies melanotic stool. He does not take any NSAIDs other than a baby aspirin every day. He has not had any particular upper GI complaints. He does have significant hepatocellular CA with diffuse involvement of his liver and has undergone some radiation seed implants for that. Review of Systems General: Reports: 10 or more systems reviewed and unremarkable except in HPI and below Const: Reports: body aches Card: Reports: dyspnea on exertion GI: Reports: hematochezia; Denies: abdominal pain, pain on defecation or melena Psych: Reports: anxiety and depression Pollo/Lymph: Reports: easy bruising and easy bleeding Meds/Allergies Home Medications and Allergies Home Medications Medication Instructions Recorded Confirmed Last Taken Type aspirin [Aspir-81] 81 mg PO DAILY 10/23/19 12/09/20 12/08/20 History glipizide 10 mg PO DAILY 10/23/19 12/09/20 12/09/20 History metoprolol succinate 50 mg PO DAILY 10/23/19 12/09/20 12/08/20 History prednisone 30 mg PO DAILY 10/23/19 12/09/20 12/09/20 History tamsulosin 0.4 mg PO BEDTIME 10/23/19 12/09/2012/08/21 History vitamin A 1 cap PO DAILY 10/23/19 12/09/20 12/09/20 History insulin detemir U-100 100 unit/mL 15 unit SUBCUT DAILY ml 11/01/19 12/09/20 12/08/20 History (3 mL) subcutaneous pen cholecalciferol (vitamin D3) 25 mcg PO DAILY 01/20/20 12/09/20 12/09/20 History [Vitamin D3] vitamin V11-uvest acid 1 nabeel SUBLINGUAL DAILY 01/20/20 12/09/20 12/08/20 History ferrous fumarate 325 mg (106 mg 650 mg PO DAILY tab 09/04/20 12/09/20 12/09/20 History iron) tablet pantoprazole 40 mg tablet,delayed 40 mg PO BID #180 tab 09/23/20 12/09/20 12/09/20 Rx release atorvastatin 40 mg tablet 40 mg PO BEDTIME 90 Days #90 tab 10/18/20 12/09/20 12/08/20 Rx furosemide 40 mg tablet See Rx Instructions .ROUTE 11/28/20 12/09/20 12/09/20 Rx .COMPLEX #135 tab allopurinol 100 mg PO DAILY 12/09/20 12/09/20 12/09/20 History Allergies Allergy/AdvReac Type Severity Reaction Status Date / Time No Known Allergies Allergy Verified 11/06/20 08:30 Current Medications Current Medications Generic Name Dose Route Start Last Admin Trade Name Freq PRN Reason Stop Dose Admin Sodium Chloride 1,000 mls @ 75 mls/hr 12/10/20 00:35 12/10/20 05:45 Sodium Chloride 0.9% IV 75 mls/hr .[id number] RENETTA Administration PFSH Acute PFSH: Medical History (Updated 12/10/20 @ 07:32 by Nicolas Cartagena MD) CHF (congestive heart failure), NYHA class III Chronic kidney disease Stage III Colon polyps Coronary artery disease Diabetes mellitus type 2, insulin dependent Diverticular disease of colon Hepatocellular carcinoma History of giant cell arteritis History of squamous cell carcinoma Hyperlipidemia Hypertension Surgical History (Updated 12/10/20 @ 07:32 by Nicolas Cartagena MD) History of bilateral cataract extraction History of cholecystectomy History of colonoscopy (~2018) 11/2018 --significant diverticulosis, internal hemorrhoids, colon polyps (removed) History of coronary angioplasty with insertion of stent (~11/2019) History of Mohs surgery for squamous cell carcinoma of skin Squamous cell carcinoma of the scalp Family History Mother Cancer CAD (coronary artery disease) Father Hypertension Social History Smoking and tobacco status: former smoker Alcohol intake: never Vitals/I&O/Wt Last Vital Signs Temp 97.8 F 12/09/20 23:50 Pulse 74 12/10/20 04:30 Resp 17 12/10/20 04:30 BP 114/64 12/10/20 04:30 Pulse Ox 93 12/10/20 04:30 12/09/20 12/10/20 12/10/20 22:59 06:59 14:59 Intake Total 1000 / 1100 100 / 1100 Balance 1000 / 1100 100 / 1100 Weight last 48 hrs Weight 158 lb Physical Exam Narrative: EXAM NARRATIVE: The patient was encountered in his room in the emergency department where he is still being held awaiting a room. He was resting comfortably when I entered the room but was easily arousable. The pupils seem equal. No carotid bruits are heard. The lungs are clear anteriorly. The heart is regular. The abdomen reveals bowel sounds but the patient has an obviously enlarged liver that occupies both upper quadrants of the abdomen down to a level just above the umbilicus. No other obvious masses are palpated. The patient does not seem to have any tenderness. The extremities reveal no edema. Neurologically he can move all limbs to command. Data Imaging^: CT Abd/Pel: Radiologist's impression: CT abdomen/pelvis 12/09/2020 IMPRESSION: 1. Cirrhosis of the liver with hepatomegaly. Evidence of diffuse hepatic metastatic disease that has progressed since last evaluation of 11/28/2019. 2. Small volume intraperitoneal ascites. 3. Moderate mesenteric edema. 4. Evidence of low-grade interstitial edema/pulmonary edema. 5. Scant right pleural effusion. 6. Cardiomegaly with scant volume pericardial effusion. 7. Coronary artery disease. 8. COPD/chronic bronchitis. 9. Extensive diverticulosis coli but without evidence for acute diverticulitis. 10. No visible hydronephrosis, hydroureter, ureterolithiasis, nephrolithiasis, or nephrocalcinosis. A&P Assessment and plan (1) Lower GI bleed: The patient has a long history of hematochezia; this is one of the reasons his colonoscopy was performed in 2019. At that time the study revealed some diverticulosis, some internal hemorrhoids, and some polyps that were completely excised. No ongoing source of bleeding was identified at the time. I think the presumption is that for several years the patient has had some intermittent diverticular bleeding. I told him that while we could consider another colonoscopy, frankly, I do not know how much help it's going to be in his case. The treatment for diverticular bleeding would be embolization, presuming an interventional radiologist could get to it when obvious bleeding was occurring. He is not a good candidate for a more invasive procedure. The patient does not seem very enthused about undergoing more endoscopy. I will be happy to follow the patient with you for now, but I think continued conservative management is probably the most sensible approach. Status: Acute (2) Acute blood loss anemia: Again, I am not sure how acute all of this is as he has an ongoing/several year history of GI blood loss and anemia, but says that it has been going on again more significantly for a couple of months just more recently. Status: Acute Consult Attestations Medical Necessity Statement: See admitting service's notation. Coding Level of Care Code Acute Education Reporter for [facility] Diagnoses Lower GI bleed K92.2 Acute blood loss anemia D62
[2020-12-10 09:06] LABS: Ferritin 333 ng/mL (30-400); Iron 14 ug/dL (59-158)
[2020-12-10] MEDS: pantoprazole 40 mg SDV IVP ×2 (09:10→17:10)
[2020-12-10 09:11] LABS: Add Urine Culture? No; Add Urine Microscopic? YES; Bacteria Urine 1+ /hpf; Bilirubin Urine Neg (Negative); Blood Urine Neg (Negative); Glucose Urine UA Norm (Normal); Ketones Urine Negative (Negative); Leukocyte Esterase Urine Negative (Negative); Nitrate Urine Negative (Negative); Protein Urine 1+ (Negative); Urine Appearance Clear (CLEAR); Urine Color Yellow (Yellow); Urobilinogen Urine Norm (Negative); pH Urine 5 (5-7)
[2020-12-10] MEDS: allopurinol 100 mg Tablet PO (09:14)
[2020-12-10] MEDS: predniSONE 10 mg Tablet 30 MG PO (09:15)
[2020-12-10 09:23] LABS: Folate Level 13.4 ng/mL (4.5-32.2)
[2020-12-10 09:27] LABS: LAB Peripheral Smear Sent for Review
[2020-12-10 09:57] LABS: Vitamin B12 > 2000 pg/mL (232-1245)
[2020-12-10 10:51] LABS: Hematocrit 27.1 % (42.0-52.0); Hemoglobin 8.3 g/dL (11.7-16.6)
--- NOTE | 2020-12-10 11:23 | PM.PN ---
Subjective Subjective: Interval history: Patient was seen this morning, he was examined in the emergency room, he tells me that what brought him to the emergency room was generalized weakness, he was just feeling weak all over, he also developed bloody stools, has had a history of bloody stools in the past, had a colonoscopy 2 years ago, was diagnosed with diverticulosis, he has a history of hepatocellular carcinoma Vitals/I&O/Wt Last Vital Signs Temp 97.8 F 12/09/20 23:50 Pulse 91 12/10/20 09:02 Resp 25 H 12/10/20 09:02 BP 119/76 12/10/20 09:02 Pulse Ox 98 12/10/20 09:02 12/09/20 12/10/20 12/10/20 22:59 06:59 14:59 Intake Total 1000 / 1000 100 / 1100 246.25 / 246.25 Balance 1000 / 1000 100 / 1100 246.25 / 246.25 Weight last 48 hrs Weight 71.668 kg Physical Exam Const: COMMON NORMALS: no acute distress and patient oriented x3 Eye: OTHER: Conjunctival pallor Resp: COMMON NORMALS: normal respiratory effort, No retractions, No use of accessory muscles and clear to auscultation bilaterally AUSCULTATION: clear to auscultation bilaterally Cardio: COMMON NORMALS: regular rate, regular rhythm, S1 normal heart sound present and S2 normal heart sound present RATE: regular rate RHYTHM: regular rhythm HEART SOUNDS: S1 normal heart sound present and S2 normal heart sound present GI: COMMON NORMALS: Normal to inspection, nondistended, normoactive bowel sounds present, Soft to palpation and non-tender PALPATION: Yes Soft to palpation Extremity: COMMON NORMALS: no pedal edema Neuro: COMMON NORMALS: patient oriented x3 Psych: COMMON NORMALS: mental status grossly normal Urinary Catheter Management^: Riley: Cath Placed During This Visit: yes Urinary Catheter Date of Insertion: 12/10/20 Urinary Catheter Time of Insertion: 08:29 Data : 12/10/20 10:30 12/10/20 05:30 A&P Assessment and plan (1) Type 2 [place] (myocardial infarction): Status: Acute (2) Acute blood loss anemia: Status: Acute (3) Lower GI bleed: Status: Acute (4) Diabetes mellitus type 2, insulin dependent: Status: Acute (5) Cancer of liver: Status: Acute (6) Elevated troponin: Status: Acute (7) Chronic kidney disease: Status: Acute Qualifiers: Chronic kidney disease stage: stage 3 (moderate) Qualified Code(s): N18.3 - Chronic kidney disease, stage 3 (moderate) Additional A&P Information Acute on chronic normocytic blood loss anemia secondary to GI bleed History of diverticular bleed Has never had a EGD, BUN is elevated at 70 Ferritin 333, iron 14 Currently hemodynamically stable Status post units PRBC, hemoglobin stable at 8.3 No active chest pain Underlying history of iron deficiency anemia Dr. Cartagena consulted, Continue n.p.o. Monitor hemodynamics, monitor hemoglobin Continue Protonix, Carafate We will keep him on normal saline for now, hyperglycemia noted Accu-Cheks every 6 hours Type II [place] Baseline troponin greater than 100 no ischemic or infarct change on EKG, cardiology was notified, no plan for intervention, likely type II [place] Request echo in the morning Type 2 diabetes: Hyperglycemia, Accu-Cheks every 4 hours since he is n.p.o. Hepatocellular cancer Alpha-fetoprotein greater than 60,000 Status post radio pellet/seed transplantation in May and June Awaiting follow-up appointment with Dr. Blake No acute signs of decompensated liver failure no signs of hepatic encephalopathy CKD, creatinine 2.3, about at baseline Full code N.p.o. DVT, SCDs Attestations Medical Necessity Statement*: Patient requires hospitalization, inpatient, greater than 2 midnights, for GI bleed, NSTEMI Coding Level of Care Code Acute Restrike Hammer Operator for [facility] Diagnoses Type 2 [place] (myocardial infarction) I21.A1 Acute blood loss anemia D62 Lower GI bleed K92.2 Diabetes mellitus type 2, insulin dependent E11.9; Z79.4 Cancer of liver C22.9 Elevated troponin R77.8 Chronic kidney disease N18.3 Chronic kidney disease stage: stage 3 (moderate)
--- NOTE | 2020-12-10 13:50 | PC.NURSE ---
Addendum entered by Chloe Burleson RN 12/10/20 19:15: NOTED SCABBED AREAS TO HEAD FROM PREVIOUS SKIN CANCER REMOVAL Original Note: TRANSFER TO FLOOR TRANSFER TO FLOOR FROM ER - PT NOTED TO HAVE SCATTERED BRUISES - SEE INITIAL ASSESSMENT OF DETAIL - RIGHT FA SKIN TEAR NOTED TO BE C/D/I DAUGHTER AT SIDE - WILL MONITOR
[2020-12-10 14:50] LABS: Hematocrit 27.7 % (42.0-52.0); Hemoglobin 8.4 g/dL (11.7-16.6)
[2020-12-10 16:54] LABS: Glucose Point of Care 181 mg/dL (70-110)
[2020-12-10] MEDS: sucralfate 1 gm Tablet PO ×2 (17:10→21:35)
[2020-12-10 18:59] LABS: Hematocrit 25.7 % (42.0-52.0); Hemoglobin 7.9 g/dL (11.7-16.6)
--- NOTE | 2020-12-10 20:44 | P.PN_ITS ---
Subjective Subjective: Interval history: Status post transfusion denies any complaint. Denies chest pain Medications: Reviewed: Yes Vitals/I&O/Wt Last Vital Signs Temp 97.6 F 12/10/20 15:20 Pulse 87 12/10/20 15:20 Resp 18 12/10/20 15:20 BP 119/70 12/10/20 15:20 Pulse Ox 97 12/10/20 15:20 12/10/20 12/10/20 12/10/20 06:59 14:59 22:59 Intake Total 100 / 1100 246.25 / 246.25 Output Total 300 / 300 Balance 100 / 1100 246.25 / 246.25 -300 / -53.75 Weight last 48 hrs Weight 158 lb Weight 158 lb Physical Exam Narrative: EXAM NARRATIVE: GENERAL: Patient is alert, awake and oriented x3. NECK: No jugular vein distension. HEENT: No cyanosis. No icterus. No pallor. HEART: Regular S1 and S2. No murmur, rub or gallop. LUNGS: Clear to auscultate bilaterally. ABDOMEN: Soft, nontender and nondistended. Positive bowel sounds. No guarding, rebound or tenderness. CENTRAL NERVOUS SYSTEM: Grossly nonfocal. EXTREMITIES: Lower extremities without edema bilaterally. Urinary Catheter Management^: Riley: Cath Placed During This Visit: yes Reason for Continuing Indwelling Catheter: Other Urinary Catheter Date of Insertion: 12/10/20 Urinary Catheter Time of Insertion: 08:29 Data : 12/10/20 18:53 12/10/20 05:30 A&P Assessment and plan (1) Elevated troponin: Most likely type II and secondary to GI bleed leading to hypotension demand ischemia. Advised replenishing blood loss continue current regimen. Not a good candidate for anticoagulation or antiplatelet at the moment. Recommend treating medically and conservative Most likely due to type II as above continue current regimen continue medical management Status: Acute (2) Lower GI bleed: S/p 2 units of packed red blood cell transfusion current hemoglobin 8.4. Recommendation as per medicine Status: Acute (3) Coronary artery disease: Stable from a coronary disease perspective advised keeping hemoglobin a debra 8. We can hold antiplatelet including aspirin and antiplatelet since it has been more than 1 year patient had stents Stable doing fine from a cardiovascular perspective continue medicine Status: Acute Qualifiers: Coronary Disease-Associated Artery/Lesion type: [place] artery [place] vs. transplanted heart: [place] heart Associated angina: with unspecified angina Qualified Code(s): I25.119 - Atherosclerotic heart disease of [place] coronary artery with unspecified angina pectoris Attestations Medical Necessity Statement*: Patient require continuation hospitalization for above defined care. Coding Level of Care Code Established Pt Acute Box Truck Washer for Margarita Crespo Patient Type Established History Detailed Exam Detailed Medical Decision Making Moderate Complexity Diagnoses Elevated troponin R77.8 Lower GI bleed K92.2 Coronary artery disease I25.119 Coronary Disease-Associated Artery/Lesion type: [place] artery [place] vs. transplanted heart: [place] heart Associated angina: with unspecified angina
[2020-12-10 21:13] LABS: Glucose Point of Care 166 mg/dL (70-110)
[2020-12-10] MEDS: tamsulosin 0.4 mg Capsule PO (21:35)
[2020-12-10 22:41] LABS: Hemoglobin 7.4 g/dL (11.7-16.6)
[2020-12-11] VITALS (12 sets, daily range): BP systolic 107–132; BP diastolic 64–77; PULSE 94–101; RESP 14–22; TEMP 36.3–36.6; O2SAT 96–100
[2020-12-11 02:31] LABS: Glucose Point of Care 94 mg/dL (70-110)
--- NOTE | 2020-12-11 05:49 | PC.NURSE ---
Shift Note Frequent safety and comfort rounds continue. Patient rested comfortably throughout this shift. Orders and/or nursing care completed as indicated. Patient monitored for response to intervention and treatment(s). Patient had 2 tarry liquid stools on this shift. Patient currently resting comfortably in bed. Will continue to monitor.
[2020-12-11 06:44] LABS: Basophils % 0.4 %; Eosinophils # 0.1 10^3/uL (0.0-0.8); Eosinophils % 0.8 %; Hematocrit 23.8 % (42.0-52.0); Hemoglobin 7.3 g/dL (11.7-16.6); Lymphocytes # 0.4 10^3/uL (0.8-4.8); Lymphocytes % 5.1 %; Mean Corpuscular HGB Conc 30.7 g/dL (30.0-36.0); Mean Corpuscular Hemoglobin 25.9 pg (28.0-34.0); Mean Corpuscular Volume 84.4 fL (80-94); Monocytes # 0.6 10^3/uL (0.2-0.9); Monocytes % 6.8 %; Neutrophils # 7.28 10^3/uL (1.8-7.7); Neutrophils % 86.7 %; Nucleated Red Blood Cells % 0 %; Platelet Count 196 10^3/cmm (130-400); Red Blood Count 2.82 10^6/uL (4.1-5.3); Red Cell Distribution Width 17.5 % (12.1-15.1); White Blood Count 8.4 10^3/uL (4.0-10.0)
[2020-12-11] MEDS: sucralfate 1 gm Tablet PO ×4 (06:55→21:02)
[2020-12-11 07:01] LABS: Alanine Aminotransferase 61 U/L (0-41); Albumin Level 2.6 g/dL (3.5-5.2); Alkaline Phosphatase 295 IU/L (40-130); Anion Gap 17.8 (5-19); Aspartate Amino Transferase 123 U/L (0-40); Blood Urea Nitrogen 74 mg/dL (8-23); Calcium 8.2 mg/dL (8.5-10.5); Carbon Dioxide 15 mmol/L (22-29); Chloride 116 mmol/L (98-107); Globulin 2.9 g/dL (1.3-4.6); Glucose 81 mg/dL (65-115); Magnesium 2.6 mg/dL (1.7-2.3); Osmolality Calculated 319 mOsm/kg (285-295); Phosphorus 4.1 mg/dL (2.5-4.5); Potassium 4.8 mmol/L (3.5-5.1); Sodium 144 mmol/L (136-145); Total Bilirubin 1.1 mg/dL (0.15-1.2); Total Protein 5.5 g/dL (6.6-8.7)
[2020-12-11] MEDS: predniSONE 10 mg Tablet 30 MG PO (07:59)
[2020-12-11] MEDS: allopurinol 100 mg Tablet PO (07:59)
[2020-12-11] MEDS: pantoprazole 40 mg SDV IVP ×2 (09:32→17:45)
--- NOTE | 2020-12-11 09:38 | PM.PN ---
Subjective Subjective: Interval history: The patient says he still had some bleeding with bowel movements. He is not hungry. Vitals/I&O/Wt Last Vital Signs Temp 97.6 F 12/11/20 07:32 Pulse 94 12/11/20 07:32 Resp 18 12/11/20 07:32 BP 112/71 12/11/20 07:32 Pulse Ox 99 12/11/20 07:32 12/10/20 12/11/20 12/11/20 22:59 06:59 14:59 Intake Total 1000 / 1366.25 120 / 1366.25 Output Total 300 / 925 625 / 925 Balance 700 / 441.25 -505 / 441.25 Weight last 48 hrs Weight 158 lb Weight 158 lb Physical Exam Narrative: EXAM NARRATIVE: Abdominal exam remains about the same. He does not have any significant lower abdominal tenderness. Urinary Catheter Management^: Riley: Cath Placed During This Visit: yes Reason for Continuing Indwelling Catheter: Other Urinary Catheter Date of Insertion: 12/10/20 Urinary Catheter Time of Insertion: 08:29 Data : 12/11/20 06:20 12/11/20 06:20 A&P Assessment and plan (1) Lower GI bleed: Discussed the patient's situation with Dr. Blake this morning. The patient has a long history of hematochezia; this is one of the reasons his colonoscopy was performed in 2019. At that time the study revealed some diverticulosis, some internal hemorrhoids, and some polyps that were completely excised. No ongoing source of bleeding was identified at the time. I think the presumption is that for several years the patient has had some intermittent diverticular bleeding. This started long before his hepatocellular carcinoma was even a known issue. I told him that while we could consider another colonoscopy, frankly, I do not know how much help it's going to be in his case. The treatment for diverticular bleeding would be embolization, presuming an interventional radiologist could get to it when obvious bleeding was occurring. He is not a good candidate for a more invasive procedure. The patient does not seem very enthused about undergoing more endoscopy. I will be happy to follow the patient with you for now, but I think continued conservative management is probably the most sensible approach. Status: Acute (2) Acute blood loss anemia: Again, I am not sure how acute all of this is as he has an ongoing/several year history of GI blood loss and anemia, but says that it has been going on again more significantly for a couple of months just more recently. Status: Acute Attestations Medical Necessity Statement*: See admitting service's notation. Coding Level of Care Code Acute Signal And Communications Maintainer for Deborah Dennisd Diagnoses Lower GI bleed K92.2 Acute blood loss anemia D62
--- NOTE | 2020-12-11 10:34 | PC.CHAP ---
Pastoral Care Encounter/Spiritual Assessment Type of Contact [] Declined manager client support visit [] Patient/Family/Request visit [] Outpatient visit [] Follow-up visit [] Physician referral [] Code/Alert [x] Routine visit [] Staff referral [] Actively dying [x] Patient sleeping [] Family support [] [] Out of room [] Palliative care [] [] Receiving care in room [] Pre-surgical visit [] Trauma [] Long length of stay [] ICU visit [] Other: Relational/Emotional Strength [] Patient feels connected with others/family/visitors/staff [] Distress [] Loneliness/isolation [] Abandonment Spirituality of Patient [] Person of Deena [] Attends Baptism of their Deena [] Believes in Prayer [] Reads Bible or Congregational materials [] There are Spiritual issues to be addressed [place]inner Interventions [] Prayer [] Active listening [] Non-anxious presence [] Spiritual/emotional support [] Crisis/trauma care [] Spiritual counseling [] Bereavement support [] Provided bereavement packet [] Provided Bible/devotional materials [] Provided toy/stuffed animal, coloring book to patient or family member [] Provided Communion [] Anointing/[place] [] Salvation [] Completed spiritual assessment [] Other: Impact on Illness or Injury [] Angry [] Fearful [] Anxious [] Often cries [] Exhaustion [] Unable to work [] Unable to attend protestant [] Unable to walk/stand [] Unable to read [] Unable to drive [] Unable to eat/drink [] Unable to sleep [] Unable to be with family [] Patient intubated [] Other: Summary Time spent with patient
[2020-12-11 10:47] LABS: Hematocrit 24.1 % (42.0-52.0); Hemoglobin 7.2 g/dL (11.7-16.6)
[2020-12-11] MEDS: sodium chloride 0.9% (100 ml) 100 ML 50 ML (11:12)
[2020-12-11] MEDS: sodium chloride 0.9% 1,000 ML 75 ML IV (11:14)
--- NOTE | 2020-12-11 13:11 | PM.PN ---
Subjective Subjective: Interval history: This morning patient was examined, he tells me that he continued to have bloody stools overnight, no hemodynamic compromise, no nausea, no vomiting, no abdominal pain, no chest pain, continues to feel fatigued Vitals/I&O/Wt Last Vital Signs Temp 97.6 F 12/11/20 12:00 Pulse 97 12/11/20 12:00 Resp 17 12/11/20 12:00 BP 112/69 12/11/20 12:00 Pulse Ox 97 12/11/20 12:00 12/10/20 12/11/20 12/11/20 22:59 06:59 14:59 Intake Total 1000 / 1246.25 120 / 1366.25 1182.50 / 1182.50 Output Total 300 / 300 625 / 925 Balance 700 / 946.25 -505 / 441.25 1182.50 / 1182.50 Weight last 48 hrs Weight 71.668 kg Weight 71.668 kg Physical Exam Const: COMMON NORMALS: no acute distress and patient oriented x3 Eye: OTHER: Conjunctival pallor Resp: COMMON NORMALS: normal respiratory effort, No retractions, No use of accessory muscles and clear to auscultation bilaterally AUSCULTATION: clear to auscultation bilaterally Cardio: COMMON NORMALS: regular rate, regular rhythm, S1 normal heart sound present and S2 normal heart sound present RATE: regular rate RHYTHM: regular rhythm HEART SOUNDS: S1 normal heart sound present and S2 normal heart sound present GI: COMMON NORMALS: Normal to inspection, nondistended, normoactive bowel sounds present and Soft to palpation PALPATION: Yes Soft to palpation Extremity: COMMON NORMALS: no pedal edema Neuro: COMMON NORMALS: patient oriented x3 Urinary Catheter Management^: Riley: Cath Placed During This Visit: yes Reason for Continuing Indwelling Catheter: Other Urinary Catheter Date of Insertion: 12/10/20 Urinary Catheter Time of Insertion: 08:29 Data : 12/11/20 10:29 12/11/20 06:20 A&P Assessment and plan (1) Type 2 ID (myocardial infarction): Status: Acute (2) Acute blood loss anemia: Status: Acute (3) Lower GI bleed: Status: Acute (4) Diabetes mellitus type 2, insulin dependent: Status: Acute (5) Cancer of liver: Status: Acute (6) Elevated troponin: Status: Acute (7) Chronic kidney disease: Status: Acute Qualifiers: Chronic kidney disease stage: stage 3 (moderate) Qualified Code(s): N18.3 - Chronic kidney disease, stage 3 (moderate) Additional A&P Information Acute on chronic normocytic blood loss anemia secondary to GI bleed History of diverticular bleed Has never had a EGD, BUN is elevated at 74 Ferritin 333, iron 14, smear shows rare atypical lymphocytes Currently hemodynamically stable Status post 2 units PRBC, hemoglobin stable at 7.2, will keep hemoglobin greater than 8, transfuse 1 unit PRBC No active chest pain Underlying history of iron deficiency anemia Dr. 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 Blake No acute signs of decompensated liver failure no signs of hepatic encephalopathy CKD, creatinine 2.4, about at baseline Full code Clears DVT, SCDs Plan transfuse 1 PRBC, monitor hemoglobin, monitor hemodynamics, transition to clears, Attestations Medical Necessity Statement*: Patient requires hospitalization for acute blood loss anemia secondary to GI bleed Coding Level of Care Code Acute Technical Support Engineer for [facility] Fwd Diagnoses Type 2 ID (myocardial infarction) I21.A1 Acute blood loss anemia D62 Lower GI bleed K92.2 Diabetes mellitus type 2, insulin dependent E11.9; Z79.4 Cancer of liver C22.9 Elevated troponin R77.8 Chronic kidney disease N18.3 Chronic kidney disease stage: stage 3 (moderate)
--- NOTE | 2020-12-11 16:29 | PC.NURSE ---
Shift Note Frequent safety and comfort rounds continue. Orders and/or nursing care completed as indicated. Patient monitored for response to intervention and treatment. Pt received 0ne unit of blood this shift per physician's order, see indicating labs. Education provided includes reporting s/s of adverse effects of blood transfusion. Patient and family verbalized understanding. Will continue to monitor.
[2020-12-11 16:58] LABS: Glucose Point of Care 170 mg/dL (70-110)
--- NOTE | 2020-12-11 19:00 | PM.PN ---
Subjective Subjective: Interval history: Appear to be stable denies any chest pain mildly tachycardic had episodes of blood in the stool Medications: Reviewed: Yes Vitals/I&O/Wt Last Vital Signs Temp 97.5 F L 12/11/20 16:00 Pulse 98 12/11/20 16:00 Resp 18 12/11/20 16:00 BP 132/69 12/11/20 16:00 Pulse Ox 99 12/11/20 16:00 12/11/20 12/11/20 12/11/20 06:59 14:59 22:59 Intake Total 120 / 1366.25 1282.50 / 1282.50 830 / 2112.50 Output Total 625 / 925 650 / 650 Balance -505 / 441.25 1282.50 / 1282.50 180 / 1462.50 Weight last 48 hrs Weight 158 lb Physical Exam Narrative: EXAM NARRATIVE: GENERAL: Patient is alert, awake and oriented x3. NECK: No jugular vein distension. HEENT: No cyanosis. No icterus. No pallor. HEART: Regular S1 and S2. No murmur, rub or gallop. LUNGS: Clear to auscultate bilaterally. ABDOMEN: Soft, nontender and nondistended. Positive bowel sounds. No guarding, rebound or tenderness. CENTRAL NERVOUS SYSTEM: Grossly nonfocal. EXTREMITIES: Lower extremities without edema bilaterally. Urinary Catheter Management^: Riley: Cath Placed During This Visit: yes Reason for Continuing Indwelling Catheter: Acute Urinary Retention or Obstruction Urinary Catheter Date of Insertion: 12/10/20 Urinary Catheter Time of Insertion: 08:29 Data : 12/11/20 10:29 12/11/20 06:20 A&P Assessment and plan (1) Elevated troponin: Most likely type II and secondary to GI bleed leading to hypotension demand ischemia. Advised replenishing blood loss continue current regimen. Not a good candidate for anticoagulation or antiplatelet at the moment. Recommend treating medically and conservative Most likely due to type II as above continue current regimen continue medical management Patient appeared to be stable doing fine from cardiovascular perspective continue to monitor Status: Acute (2) Lower GI bleed: Appear to be stable vital contreras further management as per medicine Status: Acute (3) Coronary artery disease: Stable from a coronary disease perspective most likely non-STEMI was type II and due to balance mismatch Status: Acute Qualifiers: Coronary Disease-Associated Artery/Lesion type: [place] artery [place] vs. transplanted heart: [place] heart Associated angina: with unspecified angina Qualified Code(s): I25.119 - Atherosclerotic heart disease of [place] coronary artery with unspecified angina pectoris Attestations Medical Necessity Statement*: Require continuation hospitalization for above defined care Coding Level of Care Code Established Pt Acute Radiation Protection Technician for Deborahg Fwd Patient Type Established History Detailed Exam Detailed Medical Decision Making Moderate Complexity Diagnoses Elevated troponin R77.8 Lower GI bleed K92.2 Coronary artery disease I25.119 Coronary Disease-Associated Artery/Lesion type: [place] artery [place] vs. transplanted heart: [place] heart Associated angina: with unspecified angina
[2020-12-11 20:11] LABS: Hematocrit 30.1 % (42.0-52.0); Hemoglobin 9.4 g/dL (11.7-16.6)
[2020-12-11] MEDS: tamsulosin 0.4 mg Capsule PO (21:02)
[2020-12-12] VITALS (11 sets, daily range): BP systolic 120–146; BP diastolic 68–80; PULSE 84–96; RESP 17–20; TEMP 36.2–36.9; O2SAT 93–99
[2020-12-12 01:54] LABS: Glucose Point of Care 131 mg/dL (70-110)
[2020-12-12] MEDS: sodium chloride 0.9% 1,000 ML 75 ML IV ×2 (05:31→20:11)
[2020-12-12] MEDS: sucralfate 1 gm Tablet PO ×4 (05:31→20:11)
--- NOTE | 2020-12-12 05:39 | PC.NURSE ---
Shift Note Frequent safety and comfort rounds continue. Orders and/or nursing care completed as indicated. Patient monitored for response to intervention and treatment(s). Education provided includes[importance of using call freire to get out of bed and get on bedside commode, importance of taking sucralfate tablet, and continued monitoring for GI bleed symptoms]. Patient and/or enrollment eligibility representative[verbalized understanding to all topics discussed]. Patient had one bowel movement during shift that had no signs of active bleeding.
[2020-12-12 05:49] LABS: Basophils % 0.3 %; Eosinophils # 0.1 10^3/uL (0.0-0.8); Eosinophils % 0.9 %; Hematocrit 26.7 % (42.0-52.0); Hemoglobin 8.5 g/dL (11.7-16.6); Lymphocytes # 0.3 10^3/uL (0.8-4.8); Lymphocytes % 3.6 %; Mean Corpuscular HGB Conc 31.8 g/dL (30.0-36.0); Mean Corpuscular Hemoglobin 26.7 pg (28.0-34.0); Mean Platelet Volume 12.8 fL (7.4-10.4); Monocytes # 0.6 10^3/uL (0.2-0.9); Monocytes % 7.2 %; Neutrophils # 6.75 10^3/uL (1.8-7.7); Neutrophils % 87.7 %; Nucleated Red Blood Cells % 0 %; Platelet Count 166 10^3/cmm (130-400); Red Blood Count 3.18 10^6/uL (4.1-5.3); Red Cell Distribution Width 17.1 % (12.1-15.1); White Blood Count 7.7 10^3/uL (4.0-10.0)
[2020-12-12 06:07] LABS: Alanine Aminotransferase 60 U/L (0-41); Albumin Level 2.6 g/dL (3.5-5.2); Alkaline Phosphatase 310 IU/L (40-130); Anion Gap 17.4 (5-19); Aspartate Amino Transferase 112 U/L (0-40); Blood Urea Nitrogen 63 mg/dL (8-23); Calcium 8.1 mg/dL (8.5-10.5); Carbon Dioxide 15 mmol/L (22-29); Chloride 119 mmol/L (98-107); Globulin 2.8 g/dL (1.3-4.6); Glucose 84 mg/dL (65-115); Magnesium 2.4 mg/dL (1.7-2.3); Osmolality Calculated 321 mOsm/kg (285-295); Phosphorus 3.7 mg/dL (2.5-4.5); Potassium 4.4 mmol/L (3.5-5.1); Sodium 147 mmol/L (136-145); Total Protein 5.4 g/dL (6.6-8.7)
[2020-12-12 07:07] LABS: Glucose Point of Care 96 mg/dL (70-110)
[2020-12-12] MEDS: pantoprazole 40 mg SDV IVP ×2 (08:57→20:11)
[2020-12-12] MEDS: allopurinol 100 mg Tablet PO (10:28)
[2020-12-12] MEDS: FUROsemide 20 mg Tablet PO (10:28)
[2020-12-12] MEDS: predniSONE 10 mg Tablet 30 MG PO (10:28)
[2020-12-12] MEDS: sodium chloride 0.9% 250 ML IV (11:00)
--- NOTE | 2020-12-12 12:57 | PM.PN ---
Subjective Subjective: Interval history: I am doing a lot better than when I came in here. The patient still mentions that he is having a little bit of bleeding with bowel movements. Vitals/I&O/Wt Last Vital Signs Temp 97.7 F 12/12/20 11:01 Pulse 85 12/12/20 11:01 Resp 18 12/12/20 11:01 BP 121/73 12/12/20 11:01 Pulse Ox 97 12/12/20 11:01 12/11/20 12/12/20 12/12/20 22:59 06:59 14:59 Intake Total 830 / 2750.00 637.5 / 2750.00 120 / 120 Output Total 650 / 1025 375 / 1025 Balance 180 / 1725.00 262.5 / 1725.00 120 / 120 Weight last 48 hrs Weight 158 lb Physical Exam Narrative: EXAM NARRATIVE: Abdominal exam remains unchanged. Urinary Catheter Management^: Riley: Cath Placed During This Visit: yes Reason for Continuing Indwelling Catheter: Accurate Measurement of Urinary Output in Critically Ill Patients Urinary Catheter Date of Insertion: 12/10/20 Urinary Catheter Time of Insertion: 08:29 Data : 12/12/20 05:05 12/12/20 05:05 A&P Assessment and plan (1) Lower GI bleed: The patient seems to be improved but continues to have a little bit of bleeding with bowel movements. Again, he has had this for several years and it has always been attributed to probable diverticular bleeding. Embolization would be the treatment of choice for this, but unfortunately cannot be done in this community. Status: Acute (2) Acute blood loss anemia: Again, I am not sure how acute all of this is as he has an ongoing/several year history of GI blood loss and anemia, but says that it has been going on again more significantly for a couple of months just more recently. Status: Acute Attestations Medical Necessity Statement*: See admitting service's notation. Coding Level of Care Code Acute Security Researcher for Margarita Crespo Diagnoses Lower GI bleed K92.2 Acute blood loss anemia D62
--- NOTE | 2020-12-12 13:28 | P.PN_ITS ---
Subjective Subjective: Interval history: Overnight no acute events, he had soft bowel movements nonbloody, patient was seen this morning, he tells me he is feeling better, no nausea, no vomiting, no abdominal pain, he agrees to go home on hospice, however later on early in the morning he developed a large bloody bowel movement, Vitals/I&O/Wt Last Vital Signs Temp 97.7 F 12/12/20 11:01 Pulse 85 12/12/20 11:01 Resp 18 12/12/20 11:01 BP 121/73 12/12/20 11:01 Pulse Ox 97 12/12/20 11:01 12/11/20 12/12/20 12/12/20 22:59 06:59 14:59 Intake Total 830 / 2112.50 637.5 / 2750.00 120 / 120 Output Total 650 / 650 375 / 1025 Balance 180 / 1462.50 262.5 / 1725.00 120 / 120 Physical Exam Const: COMMON NORMALS: no acute distress and patient oriented x3 Resp: COMMON NORMALS: normal respiratory effort, No retractions, No use of accessory muscles and clear to auscultation bilaterally AUSCULTATION: clear to auscultation bilaterally Cardio: COMMON NORMALS: regular rate, regular rhythm, S1 normal heart sound present and S2 normal heart sound present RATE: regular rate RHYTHM: regular rhythm HEART SOUNDS: S1 normal heart sound present and S2 normal heart sound present GI: COMMON NORMALS: Normal to inspection, nondistended, normoactive bowel sounds present and Soft to palpation PALPATION: Yes Soft to palpation Extremity: COMMON NORMALS: no pedal edema Neuro: COMMON NORMALS: patient oriented x3 Urinary Catheter Management^: Riley: Cath Placed During This Visit: yes Reason for Continuing Indwelling Catheter: Accurate Measurement of Urinary Output in Critically Ill Patients Urinary Catheter Date of Insertion: 12/10/20 Urinary Catheter Time of Insertion: 08:29 Data : 12/12/20 05:05 12/12/20 05:05 A&P Assessment and plan (1) Type 2 IA (myocardial infarction): Status: Acute (2) Acute blood loss anemia: Status: Acute (3) Lower GI bleed: Status: Acute (4) Diabetes mellitus type 2, insulin dependent: Status: Acute (5) Cancer of liver: Status: Acute (6) Elevated troponin: Status: Acute (7) Chronic kidney disease: Status: Acute Qualifiers: Chronic kidney disease stage: stage 3 (moderate) Qualified Code(s): N18.3 - Chronic kidney disease, stage 3 (moderate) Additional A&P Information Acute on chronic normocytic blood loss anemia secondary to GI bleed History of diverticular bleed Has never had a EGD, BUN is elevated at 74 Ferritin 333, iron 14, smear shows rare atypical lymphocytes Currently hemodynamically stable Status post 3 units PRBC, hemoglobin decreased to 8.5, will keep hemoglobin greater than 8, given his large bloody bowel movement will transfuse 1 unit PRBC No active chest pain Underlying history of iron deficiency anemia Dr. 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 Blake No acute signs of decompensated liver failure no signs of hepatic encephalopathy CKD, creatinine 2.4, about at baseline Full code Clears DVT, SCDs Plan transfuse 1 PRBC, monitor hemoglobin, monitor hemodynamics, transition diet, discharge tomorrow hopefully on hospice Attestations Medical Necessity Statement*: Patient requires hospitalization for acute blood loss anemia secondary to GI bleed with recurrent bloody stools requiring transfusion hospitalization Coding Level of Care Code Acute Scheduling Agent for g Fwd Diagnoses Type 2 IA (myocardial infarction) I21.A1 Acute blood loss anemia D62 Lower GI bleed K92.2 Diabetes mellitus type 2, insulin dependent E11.9; Z79.4 Cancer of liver C22.9 Elevated troponin R77.8 Chronic kidney disease N18.3 Chronic kidney disease stage: stage 3 (moderate)
[2020-12-12 16:46] LABS: Glucose Point of Care 235 mg/dL (70-110)
[2020-12-12 18:44] LABS: Hematocrit 34.1 % (42.0-52.0); Hemoglobin 10.5 g/dL (11.7-16.6); Lymphocytes # 0.1 10^3/uL (0.8-4.8); Lymphocytes % 1.9 %; Mean Corpuscular HGB Conc 30.8 g/dL (30.0-36.0); Mean Corpuscular Hemoglobin 26.7 pg (28.0-34.0); Mean Corpuscular Volume 86.8 fL (80-94); Mean Platelet Volume 12.1 fL (7.4-10.4); Monocytes # 0.1 10^3/uL (0.2-0.9); Monocytes % 1.8 %; Neutrophils # 5.92 10^3/uL (1.8-7.7); Neutrophils % 95.8 %; Nucleated Red Blood Cells % 0 %; Platelet Count 129 10^3/cmm (130-400); Red Blood Count 3.93 10^6/uL (4.1-5.3); Red Cell Distribution Width 17.1 % (12.1-15.1); White Blood Count 6.2 10^3/uL (4.0-10.0)
--- NOTE | 2020-12-12 19:17 | PM.PN ---
Subjective Subjective: Interval history: Denies any chest pain Medications: Reviewed: Yes Vitals/I&O/Wt Last Vital Signs Temp 97.7 F 12/12/20 16:40 Pulse 95 12/12/20 16:40 Resp 17 12/12/20 16:40 BP 142/80 12/12/20 16:40 Pulse Ox 98 12/12/20 16:40 12/12/20 12/12/20 12/12/20 06:59 14:59 22:59 Intake Total 637.5 / 2750.00 120 / 120 720 / 840 Output Total 375 / 1025 1150 / 1150 Balance 262.5 / 1725.00 120 / 120 -430 / -310 Physical Exam Narrative: EXAM NARRATIVE: GENERAL: Patient is alert, awake and oriented x3. NECK: No jugular vein distension. HEENT: No cyanosis. No icterus. No pallor. HEART: Regular S1 and S2. No murmur, rub or gallop. LUNGS: Clear to auscultate bilaterally. ABDOMEN: Soft, nontender and nondistended. Positive bowel sounds. No guarding, rebound or tenderness. CENTRAL NERVOUS SYSTEM: Grossly nonfocal. EXTREMITIES: Lower extremities without edema bilaterally. Urinary Catheter Management^: Riley: Cath Placed During This Visit: yes Reason for Continuing Indwelling Catheter: Accurate Measurement of Urinary Output in Critically Ill Patients Urinary Catheter Date of Insertion: 12/10/20 Urinary Catheter Time of Insertion: 08:29 Data : 12/12/20 18:23 12/12/20 05:05 A&P Assessment and plan (1) Elevated troponin: Patient stable doing fine from cardiovascular perspective elevated troponin was type II Status: Acute (2) Lower GI bleed: Appear to be stable continue as per medicine Status: Acute (3) Coronary artery disease: Stable from a coronary disease perspective most likely non-STEMI was type II and due to balance mismatch Status: Acute Qualifiers: Coronary Disease-Associated Artery/Lesion type: [place] artery [place] vs. transplanted heart: [place] heart Associated angina: with unspecified angina Qualified Code(s): I25.119 - Atherosclerotic heart disease of [place] coronary artery with unspecified angina pectoris Attestations Medical Necessity Statement*: Patient require continuation hospitalization for above defined care. Coding Level of Care Code Established Pt Acute Hotel Security Officer for Margarita Crespo Patient Type Established History Detailed Exam Detailed Medical Decision Making Moderate Complexity Diagnoses Elevated troponin R77.8 Lower GI bleed K92.2 Coronary artery disease I25.119 Coronary Disease-Associated Artery/Lesion type: [place] artery [place] vs. transplanted heart: [place] heart Associated angina: with unspecified angina
[2020-12-12] MEDS: sodium chloride 0.9% (100 ml) 100 ML 50 ML (19:46)
[2020-12-12] MEDS: tamsulosin 0.4 mg Capsule PO (20:11)
[2020-12-12 20:54] LABS: Glucose Point of Care 219 mg/dL (70-110)
[2020-12-13 04:35] VITALS: BP 131/70; PULSE 84; RESP 18; TEMP 36.6; O2SAT 98
[2020-12-13 05:28] LABS: Basophils % 0.4 %; Eosinophils # 0.1 10^3/uL (0.0-0.8); Hematocrit 32.5 % (42.0-52.0); Hemoglobin 10.3 g/dL (11.7-16.6); Lymphocytes # 0.4 10^3/uL (0.8-4.8); Lymphocytes % 4.9 %; Mean Corpuscular HGB Conc 31.7 g/dL (30.0-36.0); Mean Corpuscular Hemoglobin 26.8 pg (28.0-34.0); Mean Corpuscular Volume 84.6 fL (80-94); Monocytes # 0.5 10^3/uL (0.2-0.9); Monocytes % 7.1 %; Neutrophils # 6.35 10^3/uL (1.8-7.7); Neutrophils % 86.2 %; Nucleated Red Blood Cells % 0 %; Platelet Count 134 10^3/cmm (130-400); Red Blood Count 3.84 10^6/uL (4.1-5.3); Red Cell Distribution Width 17.7 % (12.1-15.1); White Blood Count 7.4 10^3/uL (4.0-10.0)
[2020-12-13 05:51] LABS: Alanine Aminotransferase 62 U/L (0-41); Albumin Level 2.6 g/dL (3.5-5.2); Alkaline Phosphatase 334 IU/L (40-130); Anion Gap 16.2 (5-19); Aspartate Amino Transferase 117 U/L (0-40); Blood Urea Nitrogen 52 mg/dL (8-23); Calcium 8.3 mg/dL (8.5-10.5); Carbon Dioxide 15 mmol/L (22-29); Chloride 120 mmol/L (98-107); Globulin 3.1 g/dL (1.3-4.6); Glucose 96 mg/dL (65-115); Magnesium 2.4 mg/dL (1.7-2.3); Osmolality Calculated 318 mOsm/kg (285-295); Potassium 4.2 mmol/L (3.5-5.1); Sodium 147 mmol/L (136-145); Total Bilirubin 1.2 mg/dL (0.15-1.2); Total Protein 5.7 g/dL (6.6-8.7)
[2020-12-13] MEDS: sucralfate 1 gm Tablet PO ×2 (06:12→11:10)
[2020-12-13 06:18] LABS: Glucose Point of Care 102 mg/dL (70-110)
[2020-12-13 08:00] VITALS: BP 132/69; PULSE 88; RESP 16; TEMP 36.7; O2SAT 97
--- NOTE | 2020-12-13 08:20 | P.PN_ITS ---
Subjective Subjective: Interval history: The patient says he is feeling relatively well. His hemoglobin is up to 10.3. He does not think he is having much blood in his stool now, but does not seem to be certain about what is happening there. Vitals/I&O/Wt Last Vital Signs Temp 97.8 F 12/13/20 04:35 Pulse 84 12/13/20 04:35 Resp 18 12/13/20 04:35 BP 131/70 12/13/20 04:35 Pulse Ox 98 12/13/20 04:35 12/12/20 12/13/20 12/13/20 22:59 06:59 14:59 Intake Total 1820 / 0 120 / 0 Output Total 1150 / 0 900 / 0 Balance 670 / 10 -780 / 10 Physical Exam Narrative: EXAM NARRATIVE: Abdomen remains nontender. Urinary Catheter Management^: Riley: Cath Placed During This Visit: yes Reason for Continuing Indwelling Catheter: Accurate Measurement of Urinary Output in Critically Ill Patients Urinary Catheter Date of Insertion: 12/10/20 Urinary Catheter Time of Insertion: 08:29 Data : 12/13/20 05:03 12/13/20 05:03 A&P Assessment and plan (1) Lower GI bleed: Seems to be improved. The patient is hoping that he will be able to be discharged soon. Status: Acute (2) Acute blood loss anemia: I am not sure how acute all of this is as he has an ongoing/several year history of GI blood loss and anemia, but says that it has been going on again more significantly for a couple of months just more recently. Status: Acute Attestations Medical Necessity Statement*: See admitting service's notation. Coding Level of Care Code Acute Porcelain Buildup Assistant for Margarita Crespo Diagnoses Lower GI bleed K92.2 Acute blood loss anemia D62
[2020-12-13] MEDS: allopurinol 100 mg Tablet PO (09:25)
[2020-12-13] MEDS: FUROsemide 20 mg Tablet PO (09:26)
[2020-12-13] MEDS: predniSONE 10 mg Tablet 30 MG PO (09:26)
[2020-12-13] MEDS: pantoprazole 40 mg SDV IVP (09:27)
[2020-12-13] MEDS: sodium chloride 0.9% 1,000 ML 75 ML IV (09:31)
--- NOTE | 2020-12-13 10:13 | PC.SOCIAL ---
IMM Update pg 2 of IMM reviewed w/ patient and copy provided.
--- NOTE | 2020-12-13 11:20 | P.PN_ITS ---
Subjective Subjective: Interval history: Hemoglobin stable denies any complaint Medications: Reviewed: Yes Vitals/I&O/Wt Last Vital Signs Temp 98.1 F 12/13/20 08:00 Pulse 88 12/13/20 08:00 Resp 16 12/13/20 08:00 BP 132/69 12/13/20 08:00 Pulse Ox 97 12/13/20 08:00 12/12/20 12/13/20 12/13/20 22:59 06:59 14:59 Intake Total 1820 / 1940 120 / 2060 1000 / 1000 Output Total 1150 / 1150 900 / 2050 Balance 670 / 790 -780 / 10 1000 / 1000 Physical Exam Narrative: EXAM NARRATIVE: GENERAL: Patient is alert, awake and oriented x3. NECK: No jugular vein distension. HEENT: No cyanosis. No icterus. No pallor. HEART: Regular S1 and S2. No murmur, rub or gallop. LUNGS: Clear to auscultate bilaterally. ABDOMEN: Soft, nontender and nondistended. Positive bowel sounds. No guarding, rebound or tenderness. CENTRAL NERVOUS SYSTEM: Grossly nonfocal. EXTREMITIES: Lower extremities without edema bilaterally. Urinary Catheter Management^: Riley: Cath Placed During This Visit: yes Reason for Continuing Indwelling Catheter: Accurate Measurement of Urinary Output in Critically Ill Patients Urinary Catheter Date of Insertion: 12/10/20 Urinary Catheter Time of Insertion: 08:29 Data : 12/13/20 05:03 12/13/20 05:03 A&P Assessment and plan (1) Elevated troponin: No more chest pain, troponin high is due to type II Status: Acute (2) Lower GI bleed: Appear to be stable continue as per medicine Status: Acute (3) Coronary artery disease: Stable from a coronary disease perspective most likely non-STEMI was type II Status: Acute Qualifiers: Coronary Disease-Associated Artery/Lesion type: [place] artery [place] vs. transplanted heart: [place] heart Associated angina: with unspecified angina Qualified Code(s): I25.119 - Atherosclerotic heart disease of [place] coronary artery with unspecified angina pectoris Attestations Medical Necessity Statement*: Patient require continuation hospitalization for above defined care Coding Level of Care Code Acute Line Service Person for [facility] Diagnoses Elevated troponin R77.8 Lower GI bleed K92.2 Coronary artery disease I25.119 Coronary Disease-Associated Artery/Lesion type: [place] artery [place] vs. transplanted heart: [place] heart Associated angina: with unspecified angina
--- NOTE | 2020-12-13 11:35 | PM.DCS ---
Discharge Providers Date of Admission: 12/10/20 00:35 Date of Discharge: December 13, 2020 Attending Provider at Admission: Danielle Dhillon MD Attending Provider at Discharge: Cyrus Trivedi MD Primary Care Provider: Jorge Alberto Mitchell DO Diagnoses at Discharge Discharge Diagnosis (1) Elevated troponin: Status: Acute (2) Lower GI bleed: Status: Acute (3) Coronary artery disease: Status: Acute Qualifiers: Coronary Disease-Associated Artery/Lesion type: [place] artery [place] vs. transplanted heart: [place] heart Associated angina: with unspecified angina Qualified Code(s): I25.119 - Atherosclerotic heart disease of [place] coronary artery with unspecified angina pectoris Reason for Visit Reason for Visit: GI BLEED, INCREASED WEAKNESS Hospital Course Hospital Course This is a pleasant 85-year-old male with a past medical history of CAD, insulin-dependent type 2 diabetes mellitus, hepatocellular carcinoma, CKD, history of chronic anemia status post EGD colonoscopy who presents to [facility] due to weakness, and bloody stools Patient was admitted to [facility] for acute on chronic normocytic blood loss anemia secondary to GI bleed, likely diverticular bleed, had iron deficiency anemia, general surgery was consulted who recommended conservative management, patient was managed as inpatient, hemodynamics were stable, he was transfused a total of 4 units as inpatient, 24 hours before discharge he did not have any reported bloody stools, hemoglobin remained stable at 10.3. Patient's recurrent bloody or black stools, anemia is likely not related to his cancer, it is related to a lower GI bleed likely diverticular bleed. Thus as patient is going on hospice as below, will have hospice monitor his hemoglobin, next check on Wednesday, and he can receive blood transfusion as outpatient as needed. Patient also had a type II NSTEMI during his hospitalization, no EKG changes, cardiology was consulted, recommended medical management, likely type II NSTEMI for GI bleed For his hepatocellular carcinoma, Dr. Blake had a discussion with family and patient about hospice, decision was made to pursue hospice, patient will be discharged home on hospice. Physical Exam Const: COMMON NORMALS: no acute distress and patient oriented x3 Resp: COMMON NORMALS: normal respiratory effort, No retractions, No use of accessory muscles and clear to auscultation bilaterally AUSCULTATION: clear to auscultation bilaterally Cardio: COMMON NORMALS: regular rate, regular rhythm, S1 normal heart sound present and S2 normal heart sound present RATE: regular rate RHYTHM: regular rhythm HEART SOUNDS: S1 normal heart sound present and S2 normal heart sound present GI: COMMON NORMALS: Normal to inspection, nondistended, normoactive bowel sounds present, Soft to palpation, non-tender and No hepatosplenomegaly present PALPATION: Yes Soft to palpation and Yes No hepatosplenomegaly present Extremity: COMMON NORMALS: no pedal edema Neuro: COMMON NORMALS: patient oriented x3 Psych: COMMON NORMALS: mental status grossly normal Urinary Catheter Management^: Riley: Cath Placed During This Visit: yes Reason for Continuing Indwelling Catheter: Accurate Measurement of Urinary Output in Critically Ill Patients Urinary Catheter Date of Insertion: 12/10/20 Urinary Catheter Time of Insertion: 08:29 Discharge Data Data Completed and Pending: Completed Studies During Hospitalization Category Date Time Status CT abdomen pelvis wo con [id number] Stat Cat Scan 12/09/20 15:47 Completed Pending at discharge Category Date Time Status Leukemia/Lymphoma Evaluation Routin e Lab 12/11/20 02:34 Received Labs from last 24 hours 12/13/20 12/13/20 12/13/20 06:06 05:03 05:03 WBC 7.4 RBC 3.84 L Hgb 10.3 L Hct 32.5 L MCV 84.6 MCH 26.8 L MCHC 31.7 RDW 17.7 H Plt Count 134 MPV Not Reportable Neut % (Auto) 86.2 Lymph % (Auto) 4.9 [place] % (Auto) 7.1 Eos % (Auto) 1.0 Baso % (Auto) 0.4 Neut # (Auto) 6.35 Lymph # (Auto) 0.4 L [place] # (Auto) 0.5 Eos # (Auto) 0.1 Baso # (Auto) 0.0 Nucleated RBC % (a uto) 0 Nucleated RBCs # 0.0 Sodium 147 H Potassium 4.2 Chloride 120 H Carbon Dioxide 15 L Anion Gap 16.2 BUN 52 H Creatinine 2.0 H GFR Calculation Not Reportable Glucose 96 POC Glucose 102 Calculated Osmolal ity 318 H Calcium 8.3 L Phosphorus 3.0 Magnesium 2.4 H Total Bilirubin 1.2 AST 117 H ALT 62 H Alkaline Phosphata se 334 H Total Protein 5.7 L Albumin 2.6 L Globulin 3.1 Blood Type Rho(D) Type Antibody Screen Crossmatch 12/12/20 12/12/20 12/12/20 19:42 18:23 16:24 WBC 6.2 RBC 3.93 L Hgb 10.5 L Hct 34.1 L MCV 86.8 MCH 26.7 L MCHC 30.8 RDW 17.1 H Plt Count 129 L MPV 12.1 H Neut % (Auto) 95.8 Lymph % (Auto) 1.9 [place] % (Auto) 1.8 Eos % (Auto) 0.0 Baso % (Auto) 0.0 Neut # (Auto) 5.92 Lymph # (Auto) 0.1 L [place] # (Auto) 0.1 L Eos # (Auto) 0.0 Baso # (Auto) 0.0 Nucleated RBC % (a uto) 0 Nucleated RBCs # 0.0 Sodium Potassium Chloride Carbon Dioxide Anion Gap BUN Creatinine GFR Calculation Glucose POC Glucose 219 H 235 H Calculated Osmolal ity Calcium Phosphorus Magnesium Total Bilirubin AST ALT Alkaline Phosphata se Total Protein Albumin Globulin Blood Type Rho(D) Type Antibody Screen Crossmatch 12/09/20 16:20 WBC RBC Hgb Hct MCV MCH MCHC RDW Plt Count MPV Neut % (Auto) Lymph % (Auto) [place] % (Auto) Eos % (Auto) Baso % (Auto) Neut # (Auto) Lymph # (Auto) [place] # (Auto) Eos # (Auto) Baso # (Auto) Nucleated RBC % (a uto) Nucleated RBCs # Sodium Potassium Chloride Carbon Dioxide Anion Gap BUN Creatinine GFR Calculation Glucose POC Glucose Calculated Osmolal ity Calcium Phosphorus Magnesium Total Bilirubin AST ALT Alkaline Phosphata se Total Protein Albumin Globulin Blood Type A Positive Rho(D) Type Positive / 4+ Antibody Screen Negative Crossmatch See Detail Vitals: Last Vital Signs Temp 98.1 F 12/13/20 08:00 Pulse 88 12/13/20 08:00 Resp 16 12/13/20 08:00 BP 132/69 12/13/20 08:00 Pulse Ox 97 12/13/20 08:00 Discharge Plan Discharge Patient Disposition: Hospice - Home Condition: Stable Prescriptions: New furosemide 20 mg Tablet 20 mg PO DAILY 30 Days Qty: 30 RF: 0 sucralfate 1 gram Tablet 1 g PO AC&BEDTIME 30 Days Qty: 30 RF: 0 Continued Ferretts 325 mg (106 mg iron) tablet 650 mg PO DAILY RF: 0 pantoprazole 40 mg tablet,delayed release (DR/EC) 40 mg PO BID Qty: 180 RF: 3 atorvastatin 40 mg tablet 40 mg PO BEDTIME 90 Days Qty: 90 RF: 3 cholecalciferol (vitamin D3) [Vitamin D3] 25 mcg (1,000 unit) Tablet 25 mcg PO DAILY RF: 0 vitamin P93-[id number] acid 1,000-400 mcg Lozenge 1 nabeel sublingual DAILY RF: 0 prednisone 10 mg tablet 30 mg PO DAILY RF: 0 tamsulosin 0.4 mg capsule 0.4 mg PO BEDTIME RF: 0 vitamin A 1 cap PO DAILY RF: 0 Levemir FlexTouch U-100 Insuln 100 unit/mL (3 mL) insulin pen 15 unit SUBCUT DAILY RF: 0 allopurinol 100 mg tablet 100 mg PO DAILY RF: 0 Discontinued furosemide 40 mg tablet See Rx Instructions .ROUTE .COMPLEX Qty: 135 RF: 3 metoprolol succinate 50 mg tablet extended release 24 hr 50 mg PO DAILY RF: 0 aspirin [Aspir-81] 81 mg Tablet,Delayed Release (Dr/Ec) 81 mg PO DAILY RF: 0 Hold Instructions: Resume on 02/23/20. glipizide 5 mg tablet 10 mg PO DAILY RF: 0 Discharge Orders: Discharge Order (Routine); Ordered 12/13/20 Ordered By: Cyrus Trivedi Other Ambulatory Orders: Hemoglobin and Hematocrit (Routine) Timeframe: 3 Days Facility: [facility] - Location: Lab - Main Lab Ordered By: Cyrus Trivedi DME: [employer] (Order) Location: None Selected Ordered By: Cyrus Trivedi Referrals: Jorge Alberto Mitchell DO [Primary Care Provider] - Discharge Diet: Regular Discharge Activity: Resume usual activity Activity Restrictions/Additional Instructions: -Please monitor hemoglobin, monitor for bloody or black stools -Can come to outpatient GI for blood transfusions as needed -Recheck hemoglobin on Wednesday Discharge Attestations Time Spent in Discharge Care*: less than 30 min Quality Metrics Clinical Quality Measures During this hospital stay, did patient experience: None Coding Level of Care Code Acute [facility] [place] note Diagnoses Elevated troponin R77.8 Lower GI bleed K92.2 Coronary artery disease I25.119 Coronary Disease-Associated Artery/Lesion type: [place] artery [place] vs. transplanted heart: [place] heart Associated angina: with unspecified angina
[2020-12-13 11:46] VITALS: BP 131/78; PULSE 96; RESP 16; TEMP 36.6; O2SAT 99
[2020-12-13 12:27] LABS: Glucose Point of Care 187 mg/dL (70-110)
[2020-12-13 13:13] VITALS: BP 131/78; PULSE 96; RESP 16; TEMP 36.6; O2SAT 99
--- NOTE | 2020-12-13 13:16 | PC.NURSE ---
Discharge Note Patient discharged to home on hospice via private vehicle accompanied by his son. Discharge instructions reviewed with patient and his son. Patients medications prescription was sent to [facility] in [place]. Patient's belongings were returned to him upon discharge.
== END 2020-12-13 13:15 | disposition hospice, home (50) | DRG 377 ==
LOC: ER 19:21 → ER IP 12-10 00:36 → MEDSURG 12-10 11:36
PROVIDERS: Admitting Provider Internal Medicine; Emergency Provider Emergency Medicine; PCP Family Medicine; Visit Provider Family Medicine
DX: K92.2 Gastrointestinal hemorrhage, unspecified (principal); I21.A1 Myocardial infarction type 2; C22.9 Malignant neoplasm of liver, not specified as primary or secondary; I13.0 Hypertensive heart and chronic kidney disease with heart failure and stage 1 through stage 4 chronic kidney disease, or unspecified chronic kidney disease; D62 Acute posthemorrhagic anemia; I50.9 Heart failure, unspecified; N18.32 Chronic kidney disease, stage 3b; E11.22 Type 2 diabetes mellitus with diabetic chronic kidney disease; E11.65 Type 2 diabetes mellitus with hyperglycemia; I25.119 Atherosclerotic heart disease of native coronary artery with unspecified angina pectoris; Z95.5 Presence of coronary angioplasty implant and graft; E78.5 Hyperlipidemia, unspecified; Z85.828 Personal history of other malignant neoplasm of skin; Z87.891 Personal history of nicotine dependence; I95.9 Hypotension, unspecified; Z79.52 Long term (current) use of systemic steroids; Z92.3 Personal history of irradiation; D50.9 Iron deficiency anemia, unspecified
CPT/HCPCS: 36415; 36416; 36430; 51702; 74176; 80048; 80053; 80500; 81001; 82607; 82728; 82746; 82962; 83540; 83605; 83690; 83735; 83880; 84100; 84484; 85014; 85018; 85025; 85610; 85730; 86850; 86900; 86920; 87426; 88184; 88185; 93005; 96360; 97162; 97530; 99291; C9113; J7030; J7050; J7512; P9016; P9040

== ENCOUNTER 2020-12-15 14:17 | Outpatient (CLI) | payer OTHER, MEDICARE, BC, SELFPAY ==
[2020-12-15 15:01] LABS: Hematocrit 37.3 % (42.0-52.0); Hemoglobin 11.5 g/dL (11.7-16.6)
== END 2020-12-15 14:18 | disposition home or self-care (01) ==
PROVIDERS: PCP Family Medicine; Visit Provider Family Medicine
DX: D62 Acute posthemorrhagic anemia (principal)
CPT/HCPCS: 85014; 85018